=== PATIENT | male | born 1945 | race Caucasian/White ===

== ENCOUNTER 2022-01-14 12:31 | Inpatient (IN) ==
--- NOTE | 2022-01-14 13:10 | ED Triage Note ---
Date of Service January 14, 2022 History of Present Illness This patient was briefly evaluated while in triage. An abbreviated physical exam was performed. This patient is a 76-year-old Male with past medical history of UT x2 who presents to the ED for evaluation of "I had a seizure this morning, uncontroll able". Pt. states he heard a ringing in his ears around 11:30, then all of a sudden his arms started moving back and forth. Lasted 1-2 minutes. Legs shaking, couldn't stop. Wasn't able to talk, but recalls the entire episode. Physical Exam VITALS: Vitals are noted on the nurse's note and reviewed by myself. GENERAL: This is a 76 year old white male, in no acute distress, nondiaphoretic, well-developed well-nourished. SKIN: No rashes, edema, erythema HEAD: Normocephalic atraumatic. NECK: No JVD. LUNGS: No retractions or accessory muscle use. MUSCULOSKELETAL: Normal gait. NEURO: Patient was alert and oriented to person place and time. No focal neurological deficits. Initial orders for labs and / or imaging were placed and patient was placed in the waiting area until a bed is available. Please see further documentation for the full ED course.
--- NOTE | 2022-01-14 13:40 | CT Scan Report ---
CT head/brain wo con CLINICAL HISTORY: 76 years-old Male with Seizure-like symptoms "arms and legs shaking". Acute seizur e like symptoms TECHNIQUE: Multiple axial CT images of the head were obtained without contrast. A dose lowering tech nique was utilized adhering to the principles of ALARA. CT DOSE: 729.78 mGycm COMPARISON: None. FINDINGS: No acute intracranial hemorrhage, midline shift, intracranial mass, hydrocephalus, territorial ischem ia or abnormal extra-axial collection. Involutional changes. Extensive white matter hypodensities. Ce rebral vascular calcifications. Mildly motion degraded exam. The calvarium is intact. Prior bilateral lens repair. The paranasal sinuses, mastoid air cells, and m iddle ear cavities are clear. IMPRESSION: 1. No acute intracranial abnormality. 2. Extensive nonspecific white matter hypodensities suggestive of probable chronic microvascular isch emic disease. ACT 112: Negative or not required by law. The above report was generated using voice recognition software. It may contain grammatical, syntax o r spelling errors. Electronically signed by: Rajinder Cortez M.D. 01/14/2022 1:37 PM
[2022-01-14 14:15] LABS: Basophils # (auto) 0.04 K/uL (0-0.2); Basophils % (auto) 0.6 %; Eosinophils # (auto) 0.07 K/uL (0-0.50); Eosinophils % (auto) 1.1 %; Hematocrit (blood only) 45.5 % (40.1-51.0); Hemoglobin 14.8 g/dl (14.0-18.0); Immature Granulocytes # (auto) 0.01 K/uL (0.00-0.02); Immature Granulocytes % (auto) 0.2 %; Lymphocytes # (auto) 0.95 K/uL (1.2-3.4); Lymphocytes % (auto) 15.2 %; Mean Corpuscular Hemoglobin 31.4 pg (25.0-34.0); Mean Corpuscular Hgb Conc 32.5 g/dL (32.0-36.0); Mean Corpuscular Volume 96.4 fL (80.0-100.0); Mean Platelet Volume 10.5 fL (9.4-12.4); Monocytes # (auto) 0.74 K/uL (0.24-0.82); Monocytes % (auto) 11.8 %; Neutrophils # (auto) 4.46 K/uL (1.4-6.5); Neutrophils % (auto) 71.1 %; Platelet Count 193 K/uL (130-400); RDW Coefficient of Variation 12.9 % (11.5-14.5); RDW Standard Deviation 46.3 fL (36.4-46.3); Red Blood Count 4.72 M/uL (4.63-6.08); White Blood Count 6.27 K/ul (4.8-10.8)
[2022-01-14 14:40] LABS: Alanine Aminotransferase 14 U/L (7-52); Albumin Globulin Ratio 1.4 (0.9-2); Alkaline Phosphatase 59 U/L (34-104); Anion Gap 1 (3-11); Aspartate Aminotransferase 14 U/L (13-39); BUN Creatinine Ratio 14.7 (10-20); Bilirubin,Total 0.6 mg/dl (0.2-1.0); Blood Urea Nitrogen 14 mg/dl (6-23); Calcium 9.5 mg/dl (8.5-10.1); Carbon Dioxide 34 mmol/L (21-32); Chloride 105 mmol/L (98-107); Est GFR (African American) 90.4 ml/min; Globulin 2.8 gm/dl (2.5-4.0); Glucose 105 mg/dl (70-99(Fasting)); Magnesium 2.1 mg/dl (1.7-2.4); Potassium 4.4 mmol/L (3.5-5.1); Sodium 140 mmol/L (136-145); Total Protein 6.8 gm/dl (6.0-8.3)
--- NOTE | 2022-01-14 17:00 | XRay Report ---
XR chest 1V portable CLINICAL HISTORY: tia. Evaluate cardiopulmonary status COMPARISON STUDY: No previous studies for comparison. TECHNIQUE: 1 view of the chest FINDINGS: Single frontal view of the chest demonstrates the cardiomediastinal silhouette to be within normal li mits. There is hyperinflation of the lungs with attenuation of the pulmonary vasculature peripherally characteristic of underlying chronic obstructive pulmonary disease. The lungs are clear of alveolar opacities. There is no evidence for pleural effusion. There is no evidence for vascular congestion. T here is no acute osseous pathology. IMPRESSION: 1. No acute cardiopulmonary disease. 2. Underlying COPD. ACT 112: Negative or not required by law. Electronically signed by: Mumtaz Trinidad M.D. 01/14/2022 4:59 PM
--- NOTE | 2022-01-14 17:01 | Emergency Department Note ---
Impression & Plan TIA (transient ischemic attack), Seizure-like activity ED Provider Note NAME: NKECHI HARO AGE: 76 SEX: M : 1945 ARRIVES VIA: Walk-In INFORMANT: Patient, ED PROVIDER(S): Jordin Conde DO CHIEF COMPLAINT: Possible seizure HPI: The patient is a 76-year-old male who presented to the emergency department for an evaluation of a possible seizure-like activity. The patient states he had an episode where he could hear ringing in his ears and then he fell to the ground. He states he was awake during the entire episode and remembers the whole thing happening. He started shaking both his upper and lower extremities. He then thinks he may have had a seizure. He denies having any vomiting. He denies having a headache. The patient presented via ambulance. The patient states that after the episode he was not confused. He did not have a postictal phase. He did not bite his tongue. He has no loss of bowel or bladder continence. The patient states that this time he feels at his baseline. He denies having any chest pain difficulty breathing or lower extremity swelling. ROS: See above HPI for pertinent positives & negatives. A total of 10 systems reviewed and were otherwise negative. PAST MEDICAL HISTORY: See Below PAST SURGICAL HISTORY: See Below FAMILY HISTORY: See Below SOCIAL HISTORY: See Below HOME MEDICATIONS: See Below ALLERGIES: See Below VITALS: See Below PHYSICAL EXAMINATION: GENERAL: Patient is awake alert in no acute distress patient is resting comfortably and showing no signs of anxiety EYES: The conjunctivae are clear. The pupils are round and reactive. EARS, NOSE, MOUTH AND THROAT: The nose is without any evidence of any deformity. NECK: The neck is nontender and supple. RESPIRATORY: Normal respiratory effort is noted there is no evidence of wheezing rhonchi or rales CARDIOVASCULAR: Regular rate and rhythm noted there no murmurs rubs or gallops normal S1 normal S2. GASTROINTESTINAL: The abdomen is soft. Abdomen is nontender. MUSCULOSKELETAL/EXTREMITIES: There is no evidence of gross deformity full range of motion is noted in the hips and shoulders. SKIN: There is no obvious evidence of any rash. There are no petechiae, pallor or cyanosis noted. NEUROLOGIC: Patient is awake alert and oriented x3 strength is symmetric patellar reflexes are 2+ bilaterally MEDICAL DECISION MAKING: The patient is a 76-year-old male who presented to the emergency department for an evaluation of seizure-like activity. The patient describes an episode that occurred where he was shaking in both upper and lower extremities. The patient states he was awake during this time and had no loss of consciousness. There is no tongue biting or loss of bowel or bladder continence. The patient was awake and alert and had no focal neurologic deficits to my evaluation. He states he had an episode during that time where he could not speak or form sentences. This does not sound like a seizure given the patient's recollection of the event. He could possibly be neurologic in nature. I discussed the patient's condition with the on-call [facility] hospitalist. They have agreed to evaluate the patient in the emergency department for further management and disposition. Triage Nursing notes reviewed. Prior medical records reviewed Vital Signs: reviewed and remarkable for elevated blood pressure. Differential diagnosis: Vasovagal event, dehydration, infection, hypoglycemia, electrolyte abnormalities, cardiac sources, intracerebral event, pulmonary embolism, seizure, toxicologic, neurologic, as well as other pathologies. ER treatment provided: See below Diagnostics interpreted by me: ECG: EKG was obtained in the emergency department. My interpretation is normal sinus rhythm at 61 bpm. There is no ectopy. Anterior Q waves are noted. There was no PVCs. This was compared to a tracing from December 17, 2004. The anterior Q waves are new otherwise no changes were noted. Cardiac Monitoring: An order was placed for continuous cardiac monitoring. The monitor shows a rate of 72 bpm with sinus rhythm. Laboratory studies: As stated above and show below. Imaging studies: See below Consultation(s): Discussed this case with the [facility] group. Past Med/Surg History Medical History CAD (coronary artery disease) Chronic pain CKD (chronic kidney disease), stage II Diabetes mellitus, type II High cholesterol Hypertension Tobacco use Surgical History (Updated 01/14/22 @ 21:34 by Courtney López PA-C) H/O cervical spine surgery Family History (Updated 01/14/22 @ 21:35 by Courtney López PA-C) Other Aneurysm Cancer Social History (Updated 01/14/22 @ 21:35 by Courtney López PA-C) Smoking Status: Current every day smoker Tobacco Type: Cigarettes Cigarettes Per Day: 10; Hx Alcohol Use: No Hx Substance Use: No Preferred Language: Pakistani Feels Safe at Home: Yes Allergies Allergies Allergy/AdvReac Type Severity Reaction Status Date / Time No Known Allergies Allergy Verified 01/14/22 16:40 Home Meds Home Medications Medication Instructions Recorded Confirmed alendronate 70 mg tablet 70 mg PO WK 01/14/22 01/14/22 aspirin 81 mg tablet,delayed 81 mg PO DAILY 01/14/22 01/14/22 release atorvastatin 40 mg tablet 40 mg PO DAILY 01/14/22 01/14/22 carvedilol 6.25 mg tablet 6.25 mg PO BID 01/14/22 01/14/22 gabapentin 800 mg tablet 800 mg PO TID 01/14/22 01/14/22 lisinopril 10 mg tablet 10 mg PO DAILY 01/14/22 01/14/22 tramadol 50 mg tablet 50 mg PO Q6H PRN Pain 01/14/22 01/14/22 Results & Data (ED) Vital Signs Vital Signs - 24 hr 01/14/22 13:06 01/14/22 15:56 01/14/22 15:56 Temperature 36.4 C L Temperature Source Temporal Artery Scan Pulse Rate 71 Pulse Rate [Apical] 69 Pulse Rate from SpO2 Sensor Pulse Rhythm [Apical] Regular Respiratory Rate 16 16 Respiratory Effort / Characteristics Non-Labored Non-Labored Respiratory Depth Normal Normal Respiratory Pattern Regular Blood Pressure 164/78 H Blood Pressure [Left Arm] 155/106 H Blood Pressure Mean 106 Blood Pressure Mean [Left Arm] 122 Pulse Oximetry 93 95 95 Oxygen Delivery Method Room Air Room Air Sepsis Recent Fever Within 48 Hours No Sepsis New/Unexplained Change in Mental Status N/A Sepsis Action Taken by Nursing No Action Required 01/14/22 16:11 01/14/22 17:00 01/14/22 17:29 Temperature Temperature Source Pulse Rate 62 77 Pulse Rate [Apical] 78 Pulse Rate from SpO2 Sensor 63 Pulse Rhythm [Apical] Regular Respiratory Rate 19 16 18 Respiratory Effort / Characteristics Non-Labored Respiratory Depth Normal Respiratory Pattern Blood Pressure 155/106 H 179/93 H Blood Pressure [Left Arm] 179/93 H Blood Pressure Mean 122 121 Blood Pressure Mean [Left Arm] 121 Pulse Oximetry 96 96 96 Oxygen Delivery Method Room Air Room Air Sepsis Recent Fever Within 48 Hours Sepsis New/Unexplained Change in Mental Status Sepsis Action Taken by Nursing 01/14/22 19:29 Temperature Temperature Source Pulse Rate 72 Pulse Rate [Apical] Pulse Rate from SpO2 Sensor Pulse Rhythm [Apical] Respiratory Rate 17 Respiratory Effort / Characteristics Respiratory Depth Respiratory Pattern Blood Pressure 172/89 H Blood Pressure [Left Arm] Blood Pressure Mean 116 Blood Pressure Mean [Left Arm] Pulse Oximetry 96 Oxygen Delivery Method Room Air Sepsis Recent Fever Within 48 Hours Sepsis New/Unexplained Change in Mental Status Sepsis Action Taken by Custodial Medications Current Medication List: was personally reviewed by me Laboratory Data Attestation: I reviewed the patient's lab results. Result diagrams: 01/14/22 13:50 01/14/22 13:50 Lab Results 01/14/22 01/14/22 01/14/22 Range/Units 13:50 13:50 13:50 WBC 6.27 (4.8-10.8) K/ul RBC 4.72 (4.63-6.08) M/uL Hgb 14.8 (14.0-18.0) g/dl Hct 45.5 (40.1-51.0) % MCV 96.4 (80.0-100.0) fL MCH 31.4 (25.0-34.0) pg MCHC 32.5 (32.0-36.0) g/dL RDW Std Deviation 46.3 (36.4-46.3) fL RDW Coeff of Marika 12.9 (11.5-14.5) % Plt Count 193 (130-400) K/uL MPV 10.5 (9.4-12.4) fL Immature Gran % (Auto) 0.2 % Neut % (Auto) 71.1 % Lymph % (Auto) 15.2 % [place] % (Auto) 11.8 % Eos % (Auto) 1.1 % Baso % (Auto) 0.6 % Neut # (Auto) 4.46 (1.4-6.5) K/uL Lymph # (Auto) 0.95 L (1.2-3.4) K/uL [place] # (Auto) 0.74 (0.24-0.82) K/uL Eos # (Auto) 0.07 (0-0.50) K/uL Baso # (Auto) 0.04 (0-0.2) K/uL Immature Gran # (Auto) 0.01 (0.00-0.02) K/uL Sodium 140 (136-145) mmol/L Potassium 4.4 (3.5-5.1) mmol/L Chloride 105 (98-107) mmol/L Carbon Dioxide 34 H (21-32) mmol/L Anion Gap 1 L (3-11) BUN 14 (6-23) mg/dl Creatinine 0.95 (0.6-1.4) mg/dl Est Cr Clr Drug Dosing Not Reportable Est GFR ( Amer) 90.4 ml/min Est GFR (Non-Af Amer) 78.0 ml/min BUN/Creatinine Ratio 14.7 (10-20) Glucose 105 H (70-99(Fasting)) mg/dl Calcium 9.5 (8.5-10.1) mg/dl Magnesium 2.1 (1.7-2.4) mg/dl Total Bilirubin 0.6 (0.2-1.0) mg/dl AST 14 (13-39) U/L ALT 14 (7-52) U/L Alkaline Phosphatase 59 (34-104) U/L Troponin I High Sens 12.5 (0-20) pg/ml Total Protein 6.8 (6.0-8.3) gm/dl Albumin 4.0 (3.4-5.0) gm/dl Globulin 2.8 (2.5-4.0) gm/dl Albumin/Globulin Ratio 1.4 (0.9-2) SARS-CoV-2, RNA, NAAT (NEGATIVE) 01/14/22 Range/Units 20:13 WBC (4.8-10.8) K/ul RBC (4.63-6.08) M/uL Hgb (14.0-18.0) g/dl Hct (40.1-51.0) % MCV (80.0-100.0) fL MCH (25.0-34.0) pg MCHC (32.0-36.0) g/dL RDW Std Deviation (36.4-46.3) fL RDW Coeff of Marika (11.5-14.5) % Plt Count (130-400) K/uL MPV (9.4-12.4) fL Immature Gran % (Auto) % Neut % (Auto) % Lymph % (Auto) % [place] % (Auto) % Eos % (Auto) % Baso % (Auto) % Neut # (Auto) (1.4-6.5) K/uL Lymph # (Auto) (1.2-3.4) K/uL [place] # (Auto) (0.24-0.82) K/uL Eos # (Auto) (0-0.50) K/uL Baso # (Auto) (0-0.2) K/uL Immature Gran # (Auto) (0.00-0.02) K/uL Sodium (136-145) mmol/L Potassium (3.5-5.1) mmol/L Chloride (98-107) mmol/L Carbon Dioxide (21-32) mmol/L Anion Gap (3-11) BUN (6-23) mg/dl Creatinine (0.6-1.4) mg/dl Est Cr Clr Drug Dosing Est GFR ( Amer) ml/min Est GFR (Non-Af Amer) ml/min BUN/Creatinine Ratio (10-20) Glucose (70-99(Fasting)) mg/dl Calcium (8.5-10.1) mg/dl Magnesium (1.7-2.4) mg/dl Total Bilirubin (0.2-1.0) mg/dl AST (13-39) U/L ALT (7-52) U/L Alkaline Phosphatase (34-104) U/L Troponin I High Sens (0-20) pg/ml Total Protein (6.0-8.3) gm/dl Albumin (3.4-5.0) gm/dl Globulin (2.5-4.0) gm/dl Albumin/Globulin Ratio (0.9-2) SARS-CoV-2, RNA, NAAT NEGATIVE (NEGATIVE) Administered Medications Discontinued Medications Ioversol (Optiray 320 125ml) 118 ml IV ONCE ONE Stop: 01/14/22 17:11 Last Admin: 01/14/22 17:10 Dose: 118 ml Documented By: RUTHY Imaging Data Radiologist's Impression: Head CT 01/14/22 13:09 CT head/brain wo con CLINICAL HISTORY: 76 years-old Male with Seizure-like symptoms "arms and legs shaking". Acute seizure like symptoms TECHNIQUE: Multiple axial CT images of the head were obtained without contrast. A dose lowering technique was utilized adhering to the principles of ALARA. CT DOSE: 729.78 mGycm COMPARISON: None. FINDINGS: No acute intracranial hemorrhage, midline shift, intracranial mass, hydrocephalus, territorial ischemia or abnormal extra-axial collection. Invol utional changes. Extensive white matter hypodensities. Cerebral vascular calcifications. Mildly motion degraded exam. The calvarium is intact. Prior bilateral lens repair. The paranasal sinuses, mastoid air cells, and middle ear cavities are clear. IMPRESSION: 1. No acute intracranial abnormality. 2. Extensive nonspecific white matter hypodensities suggestive of probable chronic microvascular ischemic disease. ACT 112: Negative or not required by law. The above report was generated using voice recognition software. It may contain grammatical, syntax or spelling errors. Electronically signed by: Rajinder Cortez M.D. 01/14/2022 1:37 PM Chest X-Ray 01/14/22 16:35 XR chest 1V portable CLINICAL HISTORY: tia. Evaluate cardiopulmonary status COMPARISON STUDY: No previous studies for comparison. TECHNIQUE: 1 view of the chest FINDINGS: Single frontal view of the chest demonstrates the cardiomediastinal silhouette to be within normal limits. There is hyperinflation of the lungs with attenuation of the pulmonary vasculature peripherally characteristic of underlying chronic obstructive pulmonary disease. The lungs are clear of alveolar opacities. There is no evidence for pleural effusion. There is no evid ence for vascular congestion. There is no acute osseous pathology. IMPRESSION: 1. No acute cardiopulmonary disease. 2. Underlying COPD. ACT 112: Negative or not required by law. Electronically signed by: Mumtaz Trinidad M.D. 01/14/2022 4:59 PM Head CTA 01/14/22 16:35 CT angio head w con CLINICAL HISTORY: tia . Seizure-like symptoms COMPARISON STUDY: Noncontrast CT from 01/14/2022 CT DOSE: TECHNIQUE: CT Angio of the brain was performed.followed by image post processing with coronal, and sagittal MIP reformats. Contrast Volume: Optiray 320, 118 ml FINDINGS: Vascular findings: There is normal enhancement within the internal carotid arteries bilaterally. There is normal enhancement noted within the anterior, middle and posterior cerebral arteries. Nonvascular findings: There is homogeneous attenuation of the brain parenchyma bilaterally. There is no evidence for an acute infarct or cerebral edema. IMPRESSION: 1. Negative CT angiogram of the brain with contrast. ACT 112: Negative or not required by law. Electronically signed by: Mumtaz Trinidad M.D. 01/14/2022 5:24 PM Neck CTA 01/14/22 16:35 CT angio neck with con CLINICAL HISTORY: tia . Seizure-like activity COMPARISON STUDY: No previous studies for comparison. CT DOSE: 539.30 mGy.cm TECHNIQUE: CT Angio of the neck was performed.followed by image post processing with coronal, and sagittal MIP reformats.. Stenosis assessment by NASCET criteria. Contrast Volume: Optiray 320, 118 ml FINDINGS: Vascular findings: Right common carotid artery: Patent without significant stenosis. There is mild atherosclerotic calcification at the carotid bulb. Right internal carotid artery: Patent without significant stenosis. Right vertebral artery: Patent without significant stenosis. Left common carotid artery: Patent without significant stenosis. There is mild atherosclerotic calcification at the carotid bulb. Left internal carotid artery: Patent without significant stenosis. Left vertebral artery: Patent without significant stenosis. The left vertebral artery is dominant when compared to the right. Nonvascular findings: The parotid and submandibular salivary glands appear normal. There is no enl arged cervical adenopathy noted. The airway appears patent. The thyroid gland appears within normal limits. The lung apices appear within normal limits. Impression: 1. Essentially negative CT angiogram of the neck with contrast. ACT 112: Negative or not required by law. Electronically signed by: Mumtaz Trinidad M.D. 01/14/2022 5:28 PM Discharge Plan Visit Data Chief Complaint: Illness Stated Complaint: RINGING, SHAKING ED Provider: Jordin Conde Discharge Problem: TIA (transient ischemic attack), Seizure-like activity Patient Disposition: Being Evaluated by Hospitalist
[2022-01-14] MEDS ORDERED: OPTIRAY 320 125ml IV ONE (17:10)
--- NOTE | 2022-01-14 17:25 | CT Scan Report ---
CT angio head w con CLINICAL HISTORY: tia . Seizure-like symptoms COMPARISON STUDY: Noncontrast CT from 01/14/2022 CT DOSE: TECHNIQUE: CT Angio of the brain was performed.followed by image post processing with coronal, and s agittal MIP reformats. Contrast Volume: Optiray 320, 118 ml FINDINGS: Vascular findings: There is normal enhancement within the internal carotid arteries bilaterally. The re is normal enhancement noted within the anterior, middle and posterior cerebral arteries. Nonvascular findings: There is homogeneous attenuation of the brain parenchyma bilaterally. There is no evidence for an acute infarct or cerebral edema. IMPRESSION: 1. Negative CT angiogram of the brain with contrast. ACT 112: Negative or not required by law. Electronically signed by: Mumtaz Trinidad M.D. 01/14/2022 5:24 PM
--- NOTE | 2022-01-14 17:29 | CT Scan Report ---
CT angio neck with con CLINICAL HISTORY: tia . Seizure-like activity COMPARISON STUDY: No previous studies for comparison. CT DOSE: 539.30 mGy.cm TECHNIQUE: CT Angio of the neck was performed.followed by image post processing with coronal, and sa gittal MIP reformats.. Stenosis assessment by NASCET criteria. Contrast Volume: Optiray 320, 118 ml FINDINGS: Vascular findings: Right common carotid artery: Patent without significant stenosis. There is mild atherosclerotic calci fication at the carotid bulb. Right internal carotid artery: Patent without significant stenosis. Right vertebral artery: Patent without significant stenosis. Left common carotid artery: Patent without significant stenosis. There is mild atherosclerotic calcif ication at the carotid bulb. Left internal carotid artery: Patent without significant stenosis. Left vertebral artery: Patent without significant stenosis. The left vertebral artery is dominant whe n compared to the right. Nonvascular findings: The parotid and submandibular salivary glands appear normal. There is no enlarged cervical adenopathy noted. The airway appears patent. The thyroid gland appears within normal limits. The lung apices ap pear within normal limits. Impression: 1. Essentially negative CT angiogram of the neck with contrast. ACT 112: Negative or not required by law. Electronically signed by: Mumtaz Trinidad M.D. 01/14/2022 5:28 PM
--- NOTE | 2022-01-14 21:03 | History & Physical Report ---
Date of Service January 14, 2022 Assessment & Plan (1) Seizure-like activity: Plan: Patient is 76 y/o M with PMH CAD, HTN, CKD II, tobacco use presented to ER with complaint of seizure-like activity today around 11AM. Around 11 AM today had sudden onset of ringing in his ears followed by uncontrolled movement of his arms and his legs. Was awake but unable to talk. No loss control bowel/bladder In ER vitals stable. No significant electrolyte abnormality CT head: No acute intracranial abnormality CTA head and neck: Essentially negative CT angiogram of the head and neck. DDX: seizure, TIA, stroke -Tele to monitor for arrhythmias -tox screen pending -lipids and A1c in am -MRI brain -Seizure precautions -EEG -PT/OT consult -continue aspirin -neurology consult -will hold tramadol (2) Bronchitis: Plan: Suspect Underlying COPD and COPD exacerbation -Duonebs, Doxycycline, prednisone 40mg daily -Start Advair (3) CAD (coronary artery disease): Plan: H/O LA Denies CP, SOB -Continue aspirin, atorvastatin (4) Diabetes mellitus, type II: Plan: A1c: 6.3 in 11/2020 Diet controlled -Novolog correction sliding scale and monitor (5) Hypertension: Plan: -Continue lisinopril (6) CKD (chronic kidney disease), stage II: Plan: Cr: 0.9. Baseline 1.1 -monitor renal functions, avoid nephrotoxic agents when possible (7) Chronic pain: Plan: History injury and chronic back pain -Hold tramadol with possible seizure like activity -Start hydrocodone prn (8) Tobacco use: Plan: -Smoking cessation encouraged -Nicotine patch DVT Prophylaxis -Lovenox SQ Full Code as per discussion with pt Follows with Dr Maxwell for routine care Pt was seen and care coordinated with Dr Barahona. See addendum History of Present Illness Chief Complaint: Seizure like activity Primary Care Provider: Darius Maxwell MD Patient is 76 y/o M with PMH CAD, HTN, CKD II, tobacco use presented to ER with complaint of seizure-like activity today. Patient states around 11 AM today had sudden onset of ringing in his ears followed by uncontrolled movement of his arms and his legs. Patient states he was aware of what was going on however he was unable to speak during the event. His granddaughters were with him on this happened and said the episode lasted approximately 1 to 2 minutes and self resolved. Granddaughter was able to keep patient in chair to avoid from falling and hitting head. Denies any recent head trauma. Denies any loss of control of bowels or bladder. After event he was able to walk around without difficulty. Denies history seizure disorder. Denies any new medications or OTC supplements. Takes Tramadol twice daily for chronic back pain from prior injury. Ate pancakes for breakfast. Smokes 1/2ppd and reports chronic cough however recent productive cough. Denies SOB. Denies fever/chills, diaphoresis, N/V/D/C, GUTIERREZ, dizziness, syncope, vision changes, neck pain, CP, SOB, orthopnea, palpitations, cough, sore throat, choking, otalgia, rhinorrhea, abdominal pain, paresthesias, weakness, extremity weakness, extremity edema, rashes, urinary symptoms. Allergies Allergy/AdvReac Type Severity Reaction Status Date / Time No Known Allergies Allergy Verified 01/14/22 16:40 Home Medications Medication Instructions Recorded Confirmed Type alendronate 70 mg tablet 70 mg PO WK 01/14/22 01/14/22 History aspirin 81 mg tablet,delayed 81 mg PO DAILY 01/14/22 01/14/22 History release atorvastatin 40 mg tablet 40 mg PO DAILY 01/14/22 01/14/22 History carvedilol 6.25 mg tablet 6.25 mg PO BID 01/14/22 01/14/22 History gabapentin 800 mg tablet 800 mg PO TID 01/14/22 01/14/22 History lisinopril 10 mg tablet 10 mg PO DAILY 01/14/22 01/14/22 History tramadol 50 mg tablet 50 mg PO Q6H PRN Pain 01/14/22 01/14/22 History Past Med/Surg History Medical History CAD (coronary artery disease) Chronic pain CKD (chronic kidney disease), stage II Diabetes mellitus, type II High cholesterol Hypertension Tobacco use Surgical History H/O cervical spine surgery Family History Other Aneurysm Cancer Social History Smoking Status: Current every day smoker Tobacco Type: Cigarettes Cigarettes Per Day: 10; Do You Dip or Chew Tobacco: No; Hx Alcohol Use: Yes Hx Substance Use: No Preferred Language: Iraqi Communication Ability: Effective Sign Board Erector Required: No Beliefs That Will Affect Care: None Current Living Situation: Family Current Living Situation Comment: lives with his granddaughter Other Information That Helps Us Care for You: No Feels Safe at Home: Yes Safety Concerns: Feels Safe At This Time Assistive Devices: Glasses Assistive Devices Comment: pt is hard of hearing Review of Systems Review of Systems: All systems reviewed & are unremarkable except as noted in HPI & below Physical Exam Physical Exam: General: no distress, WDWN Head: normocephalic, atraumatic Eyes: PERRL, EOM's intact, conjunctiva non-injected, anicteric ENT: normal inspection external ears, nose, mucous membranes moist Neck: supple, trachea midline Lungs: no respiratory distress, +diffuse wheezing, no rhonchi/rales CV: RRR, no murmur, no pretibial edema Abd: normal BS, soft, non-tender Ext: no cyanosis, no calf tenderness Neuro: A&O x 3, no focal deficits noted, normal affect Skin: warm, dry Results & Data Results & Data ([facility]) Vital Signs (Past 12 Hours) Vital Signs Temp Pulse Pulse Resp BP BP Pulse Ox 01/14/22 19:29 72 17 172/89 H 96 01/14/22 17:29 77 18 179/93 H 96 01/14/22 17:00 78 16 179/93 H 96 01/14/22 16:11 62 19 155/106 H 96 01/14/22 15:56 95 01/14/22 15:56 69 16 155/106 H 95 01/14/22 13:06 36.4 C L 71 16 164/78 H 93 O2 Del Method 01/14/22 19:29 Room Air 01/14/22 17:29 Room Air 01/14/22 17:00 Room Air 01/14/22 16:11 01/14/22 15:56 01/14/22 15:56 Room Air 01/14/22 13:06 Room Air Laboratory Results Short CBC 01/14/22 Range/Units 13:50 WBC 6.27 (4.8-10.8) K/ul Hgb 14.8 (14.0-18.0) g/dl Hct 45.5 (40.1-51.0) % Plt Count 193 (130-400) K/uL BMP 01/14/22 13:50 Sodium 140 Potassium 4.4 Chloride 105 Carbon Dioxide 34 H BUN 14 Creatinine 0.95 Glucose 105 H Calcium 9.5 Liver Function 01/14/22 Range/Units 13:50 Total Bilirubin 0.6 (0.2-1.0) mg/dl AST 14 (13-39) U/L ALT 14 (7-52) U/L Alkaline Phosphatase 59 (34-104) U/L Albumin 4.0 (3.4-5.0) gm/dl Diagnostic Findings Head CT 01/14/22 13:09 CT head/brain wo con CLINICAL HISTORY: 76 years-old Male with Seizure-like symptoms "arms and legs shaking". Acute seizure like symptoms TECHNIQUE: Multiple axial CT images of the head were obtained without contrast. A dose lowering technique was utilized adhering to the principles of ALARA. CT DOSE: 729.78 mGycm COMPARISON: None. FINDINGS: No acute intracranial hemorrhage, midline shift, intracranial mass, hydrocephalus, territorial ischemia or abnormal extra-axial collection. Involutional changes. Extensive white matter hypodensities. Cerebral vascular calcifications. Mildly motion degraded exam. The calvarium is intact. Prior bilateral lens repair. The paranasal sinuses, mastoid air cells, and middle ear cavities are clear. IMPRESSION: 1. No acute intracranial abnormality. 2. Extensive nonspecific white matter hypodensities suggestive of probable chronic microvascular ischemic disease. ACT 112: Negative or not required by law. The above report was generated using voice recognition software. It may contain grammatical, syntax or spelling errors. Electronically signed by: Rajinder Cortez M.D. 01/14/2022 1:37 PM Chest X-Ray 01/14/22 16:35 XR chest 1V portable CLINICAL HISTORY: tia. Evaluate cardiopulmonary status COMPARISON STUDY: No previous studies for comparison. TECHNIQUE: 1 view of the chest FINDINGS: Single frontal view of the chest demonstrates the cardiomediastinal silhouette to be within normal limits. There is hyperinflation of the lungs with attenuation of the pulmonary vasculature peripherally characteristic of underlying chronic obstructive pulmonary disease. The lungs are clear of alveolar opacities. There is no evidence for pleural effusion. There is no evidence for vascular congestion. There is no acute osseous pathology. IMPRESSION: 1. No acute cardiopulmonary disease. 2. Underlying COPD. ACT 112: Negative or not required by law. Electronically signed by: Mumtaz Trinidad M.D. 01/14/2022 4:59 PM Head CTA 01/14/22 16:35 CT angio head w con CLINICAL HISTORY: tia . Seizure-like symptoms COMPARISON STUDY: Noncontrast CT from 01/14/2022 CT DOSE: TECHNIQUE: CT Angio of the brain was performed.followed by image post processing with coronal, and sagittal MIP reformats. Contrast Volume: Optiray 320, 118 ml FINDINGS: Vascular findings: There is normal enhancement within the internal carotid arteries bilaterally. There is normal enhancement noted within the anterior, middle and posterior cerebral arteries. Nonvascular findings: There is homogeneous attenuation of the brain parenchyma bilaterally. There is no evidence for an acute infarct or cerebral edema. IMPRESSION: 1. Negative CT angiogram of the brain with contrast. ACT 112: Negative or not required by law. Electronically signed by: Mumtaz Trinidad M.D. 01/14/2022 5:24 PM Neck CTA 01/14/22 16:35 CT angio neck with con CLINICAL HISTORY: tia . Seizure-like activity COMPARISON STUDY: No previous studies for comparison. CT DOSE: 539.30 mGy.cm TECHNIQUE: CT Angio of the neck was performed.followed by image post processing with coronal, and sagittal MIP reformats.. Stenosis assessment by NASCET criteria. Contrast Volume: Optiray 320, 118 ml FINDINGS: Vascular findings: Right common carotid artery: Patent without significant stenosis. There is mild atherosclerotic calcification at the carotid bulb. Right internal carotid artery: Patent without significant stenosis. Right vertebral artery: Patent without significant stenosis. Left common carotid artery: Patent without significant stenosis. There is mild atherosclerotic calcification at the carotid bulb. Left internal carotid artery: Patent without significant stenosis. Left vertebral artery: Patent without significant stenosis. The left vertebral artery is dominant when compared to the right. Nonvascular findings: The parotid and submandibular salivary glands appear normal. There is no enlarged cervical adenopathy noted. The airway appears patent. The thyroid gland appears within normal limits. The lung apices appear within normal limits. Impression: 1. Essentially negative CT angiogram of the neck with contrast. ACT 112: Negative or not required by law. Electronically signed by: Mumtaz Trinidad M.D. 01/14/2022 5:28 PM Supervising Physician Co-Signing Physician Notes delayed entry date of service noted above Attending Addendum: care coordinated with GREG Montero please refer to her notes for full details, I agree with her notes patient seen and examined, records reviewed by myself as well on exam, patient seen resting in bed, sitting up, comfortable, very pleasant states he feels fine now overall no recurrence of involuntary jerky arm and leg movements no confusion, focal weakness or numbness no chest pain, dyspnea, palpitations, dizziness no other symptoms VS noted and reviewed oriented x 3 , not in distress, speaks in sentences with no effort nor accessory muscle use normal rate, regular rhythm, no murmurs (+) diffuse wheezing bilaterally, good air entry non distended, soft, nontender no bipedal edema, erythema, warmth no focal neuro deficits CT head: 1. No acute intracranial abnormality. 2. Extensive nonspecific white matter hypodensities suggestive of probable chronic microvascular ischemic disease. CXR: 1. No acute cardiopulmonary disease. 2. Underlying COPD. ASSESSMENT AND PLAN> INVOLUNTARY JERKY MOVEMENTS POSSIBLE NEW ONSET SEIZURE EPISODE R/O ACUTE CVA, TIA - Brain MRI EEG - Neuro consult - will hold off on antiepileptic agent as this is a first episode - reports drinking 1-2 beer/week, last drink 1-2 days ago - hold Tramadol as this can lower seizure threshold- used for chronic back pain for years, discuss with Neuro regarding continuation patient will need an alternative to Tramadol MILD COPD EXACERBATION - current smoker not on any inhaler - has chronic cough, mildly increased, non productive - no fever - CXR: no pneumonia - Nebs q6h, Prednisone, Doxycycline Advair 2 step exercise test other diagnoses and plan of care as per GREG Montero notes Earle Barahona MD
[2022-01-14] MEDS ORDERED: ENOXAPARIN INJ 40 MG/0.4 ML SYR SQ SCH (22:00)
[2022-01-14] MEDS ORDERED: ACETAMINOPHEN 325 MG TAB PO PRN (22:10)
[2022-01-14] MEDS ORDERED: HYDROCODONE/ACETAMOPHEN 5/325MG TAB PO PRN (22:10)
[2022-01-14] MEDS ORDERED: DEXTROSE 50% 50 ML SYRINGE IV PRN (22:10)
[2022-01-14] MEDS ORDERED: FLUTICASONE/SALMETEROL 100/50 (ADVAIR) 14 PUFF/1 INHALER INH SCH (22:10)
[2022-01-14] MEDS ORDERED: GLUCOSE 10 TAB/TUBE PO PRN (22:10)
[2022-01-14] MEDS ORDERED: POLYETHYLENE (MIRALAX) 17 GM PACK PO PRN (22:10)
[2022-01-14] MEDS ORDERED: GLUCOSE 40% GEL 15 GM TUBE PO PRN (22:10)
[2022-01-14] MEDS ORDERED: GLUCAGON FOR INJ 1 MG VIAL SQ PRN (22:10)
[2022-01-14] MEDS ORDERED: CARBOHYDRATES FOR HYPOGLYCEMIA PO PRN (22:10)
[2022-01-14] MEDS ORDERED: PHARMACIST DISCHARGE MED REC CONSULT PRN (22:10)
[2022-01-14] MEDS ORDERED: ALBUT/IPRATROP 3MG/0.5MG NEB 3 ML VIAL NEB PRN (22:41)
[2022-01-14] MEDS ORDERED: Patient's HEIGHT &/or WEIGHT Needed SCH (22:45)
[2022-01-14] MEDS: predniSONE 20 MG TAB PO SCH (23:46)
[2022-01-14] MEDS: carvediloL 6.25 MG TAB PO SCH (23:46)
[2022-01-14] MEDS: DOXYCYCLINE HYCLATE 100 MG CAP PO SCH (23:47)
[2022-01-14] MEDS: GABAPENTIN 800 MG TAB PO SCH (23:47)
[2022-01-14] MEDS: NICOTINE 21 MG/24 HR TDSY TD SCH (23:47)
[2022-01-14] MEDS: FLUTICASONE/VILANTEROL 100/25MCG 14 PUFFS/INHALER INH SCH (23:48)
[2022-01-14] MEDS: ENOXAPARIN INJ 30 MG/0.3 ML SYR SQ SCH (23:53)
[2022-01-15] MEDS: ALBUT/IPRATROP 3MG/0.5MG NEB 3 ML VIAL NEB SCH ×4 (07:25→19:35)
[2022-01-15] MEDS: NICOTINE 21 MG/24 HR TDSY TD SCH (08:14)
[2022-01-15] MEDS: FLUTICASONE/VILANTEROL 100/25MCG 14 PUFFS/INHALER INH SCH (08:16)
[2022-01-15] MEDS: GABAPENTIN 800 MG TAB PO SCH ×3 (08:17→19:54)
[2022-01-15] MEDS: DOXYCYCLINE HYCLATE 100 MG CAP PO SCH ×2 (08:17→19:54)
[2022-01-15] MEDS: lisinopril 10 MG TAB PO SCH (08:17)
[2022-01-15] MEDS: predniSONE 20 MG TAB PO SCH (08:17)
[2022-01-15] MEDS: carvediloL 6.25 MG TAB PO SCH ×2 (08:17→19:54)
[2022-01-15] MEDS: ASPIRIN 81 MG ECTAB PO SCH (08:17)
[2022-01-15] MEDS: ATORVASTATIN 40 MG TAB PO SCH (08:18)
[2022-01-15 08:19] LABS: Appearance Urine Clear (Clear); Bacteria Urine Automated Negative (Negative); Bilirubin Urine Negative (Negative); Blood Urine 2+ (Negative); Color Urine Yellow; Glucose Urine UA Negative (Negative); Ketones Urine 1+ (Negative); Leukocyte Esterase Urine Trace (Negative); Nitrite Urine Negative (Negative); Protein Urine Negative (Negative); RBC Urine Automated >30 /hpf (0-4); Specific Gravity Urine 1.034 (1.000-1.030); Urobilinogen Urine Negative (Negative)
[2022-01-15] MEDS: INSULIN ASPART PER UNIT SC SCH ×4 (08:21→21:45)
[2022-01-15 08:37] LABS: Amphetamines+Metham, Urine Neg (Neg); Barbiturates, Urine Neg (Neg); Benzodiazepine, Urine Neg (Neg); Cocaine, Urine Neg (Neg); MDMA (Ecstacy), Urine Neg (Neg); Methadone, Urine Neg (Neg); Opiate, Urine Neg (Neg); Phencyclidine, Urine Neg (Neg)
--- NOTE | 2022-01-15 08:57 | Magnetic Resonance Report ---
MRI OF THE BRAIN WITHOUT CONTRAST CLINICAL HISTORY: seizure like activity COMPARISON STUDY: Head CT and CTA of the head January 14, 2022. TECHNIQUE: Utilizing a 1.5 Carla magnet and dedicated coil, multiplanar, multiecho imaging of the bra in was performed without IV contrast. FINDINGS: There are no foci of restricted diffusion to suggest acute infarct. No acute intracranial h emorrhage, midline shift or mass effect is present. Basal cisterns are patent. There are no extra axi al collections. Flow-voids for the major intracranial vessels are present. No intracranial masses are identified on this unenhanced exam. Extensive white matter T2 hyperintense foci are present. No evid ence for sinusitis. There is no mastoid fluid. Calvarial signal is within normal limits. IMPRESSION: 1. No acute intracranial findings. 2. Extensive white matter T2 hyperintense foci. Although nonspecific, these statistically reflect sma ll vessel disease. ACT 112: Negative or not required by law. Electronically signed by: Jonathon Pardo M.D. 01/15/2022 8:55 AM
[2022-01-15 09:39] LABS: Hemoglobin 14.9 g/dl (14.0-18.0); Mean Corpuscular Hemoglobin 31.2 pg (25.0-34.0); Mean Corpuscular Hgb Conc 33.1 g/dL (32.0-36.0); Mean Corpuscular Volume 94.1 fL (80.0-100.0); Mean Platelet Volume 10.8 fL (9.4-12.4); Platelet Count 200 K/uL (130-400); RDW Coefficient of Variation 13.1 % (11.5-14.5); RDW Standard Deviation 45.1 fL (36.4-46.3); Red Blood Count 4.78 M/uL (4.63-6.08); White Blood Count 5.15 K/ul (4.8-10.8)
--- NOTE | 2022-01-15 09:45 | Neurology Consultation ---
Date of Consultation January 15, 2022 Assessment & Plan (1) Seizure-like activity: (2) TIA (transient ischemic attack): (3) Cerebrovascular disease: Plan 76-year-old male presenting with an episode of tinnitus and associated shaking of the arms and legs while remaining in an upright seated position at the kitchen table, with associated inability to speak, but without associated alteration in awareness. I agree that the episode would be atypical for seizure. He may have had a so-called "shaking TIA" related to vertebrobasilar ischemia. Fortunately, no evidence of acute or subacute infarct on MRI although he does have rather extensive, confluent, small vessel ischemic disease throughout the cerebral hemispheres and melo. No evidence of a basilar thrombosis on CT angiography, the left vertebral artery is dominant, but again, no obvious occlusive lesion identified. The above episode could have been triggered by bradycardia or hypotension. Would recommend mobile cardiac outpatient telemetry with potential for cardiology evaluation and possible loop recorder placement. Agree with EEG although again, the episode would be very atypical for seizure given bilateral limb shaking but without loss of awareness or loss of consciousness. Would check a transthoracic echocardiogram with bubble study. There is no indication that the episode was triggered by misuse of tramadol, gabapentin, alcohol withdrawal, anxiety or other emotional factors. Would recommend dual antiplatelet therapy, aspirin 81 mg/day and clopidogrel 75 mg/day for 3 weeks, followed by clopidogrel 75 mg/day monotherapy. Follow-up with results of lipid panel, goal LDL less than 70, may need to adjust his atorvastatin. Patient should continue with antihypertensives, and gabapentin. Tramadol may be held for the time being although if his EEG is unremarkable, would be able to restart this medication. Would not recommend starting an anticonvulsant medication at this point in time. May follow-up with myself or an TOI in neurology clinic in 3 to 4 weeks. History of Present Illness Reason for Consultation: seizure like episode Attending Physician: Willem Tee MD History of Present Illness The patient is a 76-year-old male who presented to the emergency department yesterday afternoon, for further assessment of a seizure-like episode that occurred earlier that morning, while sitting at the kitchen table eating breakfast. He indicates that he was watching his grandchildren at that time when he suddenly experienced ringing in his ears. The ringing intensified and was not associated with aural fullness, pain, or hearing loss. He recalls being unable to speak at that time. There was no loss of awareness or loss of consciousness. He then began to violently shake his arms and legs while sitting upright. He indicates that he knocked many things off of the table at that time due to the violent motion of his limbs. He did not sustain any injuries or collapsed to the ground. He remained upright in his chair for the duration of the event. He does not recall feeling lightheaded, dizzy, or sweating during this episode. He does not recall having any associated chest pressure, palpitations, or shortness of breath. The episode persisted for a minute or so and resolved without obvious sequelae or recurrence. He denies that he has ever had a similar episode in the past. He denies experiencing any significant associated emotional distressed prior to the episode, no associated anxiety. He does not have a known history of epilepsy or seizure disorder. He takes gabapentin and tramadol for chronic pain related to a work-related injury that occurred 15 years ago. He remarks that he has been using these medications consistently, as prescribed, he takes tramadol 50 mg in the morning and evening only. He takes his gabapentin as prescribed 3 times per day. He denies alcohol consumption. He currently feels fine, at his baseline, no specific neurologic complaint at this time. Allergies Allergy/AdvReac Type Severity Reaction Status Date / Time No Known Allergies Allergy Verified 01/14/22 16:40 Home Medications Medication Instructions Recorded Confirmed Type alendronate 70 mg tablet 70 mg PO WK 01/14/22 01/14/22 History aspirin 81 mg tablet,delayed 81 mg PO DAILY 01/14/22 01/14/22 History release atorvastatin 40 mg tablet 40 mg PO DAILY 01/14/22 01/14/22 History carvedilol 6.25 mg tablet 6.25 mg PO BID 01/14/22 01/14/22 History gabapentin 800 mg tablet 800 mg PO TID 01/14/22 01/14/22 History lisinopril 10 mg tablet 10 mg PO DAILY 01/14/22 01/14/22 History tramadol 50 mg tablet 50 mg PO Q6H PRN Pain 01/14/22 01/14/22 History Patient History Medical History CAD (coronary artery disease) Chronic pain CKD (chronic kidney disease), stage II Diabetes mellitus, type II High cholesterol Hypertension Tobacco use Surgical History H/O cervical spine surgery Family History Other Aneurysm Cancer Social History Smoking Status: Current every day smoker Tobacco Type: Cigarettes Cigarettes Per Day: 10; Do You Dip or Chew Tobacco: No; Hx Alcohol Use: Yes Hx Substance Use: No Preferred Language: Cuban Communication Ability: Effective Heel Boom Operator Required: No Beliefs That Will Affect Care: None Current Living Situation: Family Current Living Situation Comment: lives with his granddaughter Other Information That Helps Us Care for You: No Feels Safe at Home: Yes Safety Concerns: Feels Safe At This Time Assistive Devices: Glasses Assistive Devices Comment: pt is hard of hearing Review of Systems Constitutional: no fever and no chills Eyes: no blind spots and no diplopia Ear, Nose, Mouth, Throat: as per Subjective / HPI and + tinnitus; no ear pain and no hearing loss Respiratory: no cough and no dyspnea Cardiovascular: no chest pain and no palpitations Gastrointestinal: no nausea and no vomiting Genitourinary: no dysuria or no urinary incontinence Musculoskeletal: no myalgia Integumentary: no rash Neurologic: as per Subjective / HPI and + seizure-like activity; no gait abnormality, no localized weakness, no loss of sensation, no paresthesia, no headache(s) and no memory loss Psychiatric: no depression and no anxiety Hematologic / Lymphatic: no easy bleeding and no easy bruising Exam (Neuro) Constitutional: well developed and well nourished; no acute distress Eyes: normal visual shi by confrontation, PERRL, normal accommodation and EOM intact bilaterally; no fundoscopic abnormality, no nystagmus and no papilledema Cardiovascular: Vessels: normal carotid upstroke; no carotid bruit Neurologic: Oriented to:: Person, Place and Time Memory: Short Term Intact and Remote Intact Attention: Span Intact and Concentration Intact Language: Naming Objects and Repeating Phrases Speech Fluency: negative Dysarthria Speech Aphasia: negative Aphasia Fund of Knowledge: Current Events, Past History and Vocabulary Cranial Nerves: Normal II (Visual shi full to confrontation, visual acuity normal), III, IV, (Pupils equal round reactive to light and accommodation, eye movements normal), V (Facial sensation intact), VII (There is no facial droop or weakness), VIII (Hearing intact), IX, X (Palate elevates to midline), XI (Shoulder shrug intact) and XII (Tongue protrudes to midline) Motor Strength: Normal Lower Extremities and Normal Upper Extremities; negative Pronator Drift Motor Tone: Normal Lower Extremities and Normal Upper Extremities Muscle Bulk/Involuntary Movements: No Involuntary Movements; negative Muscle Atrophy Sensation: Light Touch Intact, Pain/Temperature Intact, Vibration Intact and Proprioception Intact Coordination: Normal; negative Limited Balance, Dysdiadochokinesia, Finger-Nose Abnormal or Heel-Rowell Abnormal Deep Tendon Reflexes: Rt Triceps: 2+, Lt Triceps: 2+, Rt Biceps: 2+, Lt Biceps: 2+, Rt Brachioradialis: 2+, Lt Brachioradialis: 2+, Rt Patellar: 2+, Lt Patellar: 2+, Rt Ankle: 2+ and Lt Ankle: 2+ Special Tests: negative Babinski Present Gait: Normal Station and Gait Results & Data ([facility]) Vital Signs (Past 12 Hours) Vital Signs Temp Pulse Pulse Resp BP BP Pulse Ox 01/15/22 08:23 89 01/15/22 08:23 36.8 C 90 18 113/79 92 01/15/22 07:27 75 14 90 01/15/22 06:00 75 19 132/85 89 L 01/15/22 05:00 72 15 135/74 92 01/15/22 04:00 70 19 137/82 94 01/15/22 03:00 65 17 151/78 H 92 01/15/22 02:00 65 13 151/78 H 93 01/15/22 01:00 77 15 122/71 91 01/15/22 00:00 67 15 164/79 H 92 01/14/22 23:09 72 15 165/103 H 91 O2 Del Method 01/15/22 08:23 01/15/22 08:23 Room Air 01/15/22 07:27 01/15/22 06:00 Room Air 01/15/22 05:00 Room Air 01/15/22 04:00 Room Air 01/15/22 03:00 Room Air 01/15/22 02:00 Room Air 01/15/22 01:00 Room Air 01/15/22 00:00 Room Air 01/14/22 23:09 Room Air Laboratory Results WBC 6.27, hemoglobin 14.8, hematocrit 45.5, MCV 96.4, platelet count 193, sodium 140, potassium 4.4, BUN 14, creatinine 0.95, glucose 105, calcium 9.5, magnesium 2.1, AST 14, ALT 14, urine drug screen negative Diagnostic Findings CT of the head negative for hemorrhage or acute process, there is extensive probable chronic small vessel ischemic disease. CT angiography of the head and neck unremarkable. Left vertebral artery dominant compared to the right, no basilar stenosis or occlusive lesion identified. No significant carotid lesion identified. Brain MRI negative for acute or subacute stroke. Again noted is extensive chronic small vessel ischemic disease. I independently reviewed the images and agree with these findings as indicated by the interpreting radiologist. Thin sections of the temporal lobes were also obtained, no evidence of mesial temporal sclerosis. I do appreciate rather extensive, confluent, cerebrovascular disease throughout the cerebral hemispheres and melo. Electrocardiogram reveals a normal sinus rhythm, 61 bpm. Coding Level of Care Code 07402 Initial In Care Lvl 3 Diagnoses Seizure-like activity R56.9 TIA (transient ischemic attack) G45.9 Cerebrovascular disease I67.9
[2022-01-15 10:02] LABS: BUN Creatinine Ratio 17.2 (10-20); Calcium 9.1 mg/dl (8.5-10.1); Chol HDL Ratio 2.4 (0-5); Creatinine Clr Calc Pharmacy 66.4 ml/min; Est GFR (African American) 97.8 ml/min; Est GFR (Non-African American) 84.4 ml/min; Potassium 4.1 mmol/L (3.5-5.1)
[2022-01-15 10:34] LABS: Estimated Average Glucose 146 mg/dl; Hemoglobin A1C 6.7 % (4.5-5.6)
--- NOTE | 2022-01-15 11:59 | Electroencephalogram ---
EEG Procedure Note Date of Service January 15, 2022 Start / End Times Start Time: 11:17 AM End Time: 11:37 AM Referring Physician Eva López History Seizure-like episode Home Medication List Medication Instructions Recorded Confirmed Type alendronate 70 mg tablet 70 mg PO WK 01/14/22 01/14/22 History aspirin 81 mg tablet,delayed 81 mg PO DAILY 01/14/22 01/14/22 History release atorvastatin 40 mg tablet 40 mg PO DAILY 01/14/22 01/14/22 History carvedilol 6.25 mg tablet 6.25 mg PO BID 01/14/22 01/14/22 History gabapentin 800 mg tablet 800 mg PO TID 01/14/22 01/14/22 History lisinopril 10 mg tablet 10 mg PO DAILY 01/14/22 01/14/22 History tramadol 50 mg tablet 50 mg PO Q6H PRN Pain 01/14/22 01/14/22 History Inpatient Medication List Albuterol (Albut/Ipratrop 3mg/0.5mg Neb 3 Ml Vial) 3 ml NEB QIDR [facility]; Protocol Stop: 02/14/22 06:59 Last Admin: 01/15/22 11:11 Dose: Not Given Documented By: Admin: 01/15/22 07:25 Dose: 3 ml Documented By: LUANNE Aspirin (Aspirin 81 Mg Ectab) 81 mg PO DAILY [facility] Stop: 02/14/22 08:59 Last Admin: 01/15/22 08:17 Dose: 81 mg Documented By: LIZ Atorvastatin Calcium (Atorvastatin 40 Mg Tab) 40 mg PO DAILY [facility] Stop: 02/14/22 08:59 Last Admin: 01/15/22 08:18 Dose: 40 mg Documented By: LIZ Carvedilol (Carvedilol 6.25 Mg Tab) 6.25 mg PO BID [facility] Stop: 02/13/22 22:09 Last Admin: 01/15/22 08:17 Dose: 6.25 mg Documented By: Admin: 01/14/22 23:46 Dose: 6.25 mg Documented By: BLAISE Doxycycline Hyclate (Doxycycline Hyclate 100 Mg Cap) 100 mg PO BID [facility] Stop: 01/21/22 22:09 Last Admin: 01/15/22 08:17 Dose: 100 mg Documented By: Admin: 01/14/22 23:47 Dose: 100 mg Documented By: BLAISE Enoxaparin Sodium (Enoxaparin Inj 30 Mg/0.3 Ml Syr) 30 mg SQ Q24H [facility] Stop: 02/13/22 21:59 Last Admin: 01/14/22 23:53 Dose: 30 mg Documented By: BLAISE Fluticasone/Vilanterol (Fluticasone/Vilanterol 100/25mcg 14 Puffs/Inhaler) 1 puffs INH DAILY [facility] Stop: 02/13/22 22:44 Last Admin: 01/15/22 08:16 Dose: 1 puffs Documented By: Admin: 01/14/22 23:48 Dose: 1 puffs Documented By: BLAISE Gabapentin (Gabapentin 800 Mg Tab) 800 mg PO TID [facility] Stop: 02/13/22 22:09 Last Admin: 01/15/22 08:17 Dose: 800 mg Documented By: Admin: 01/14/22 23:47 Dose: 800 mg Documented By: BLAISE Insulin Aspart (Insulin Aspart Per Unit) 0 units SC ACHS [facility] Stop: 02/14/22 07:29 Last Admin: 01/15/22 08:21 Dose: Not Given Documented By: LIZ Lisinopril (Lisinopril 10 Mg Tab) 10 mg PO DAILY [facility] Stop: 02/14/22 08:59 Last Admin: 01/15/22 08:17 Dose: 10 mg Documented By: LIZ Miscellaneous (Remove Nicoderm Patch) 1 each N/A DAILY@0859 [facility] Stop: 02/14/22 08:58 Last Admin: 01/15/22 08:18 Dose: 1 each Documented By: LIZ Nicotine (Nicotine 21 Mg/24 Hr Tdsy) 21 mg TD QAM [facility] Stop: 02/13/22 22:09 Last Admin: 01/15/22 08:14 Dose: 21 mg Documented By: Admin: 01/14/22 23:47 Dose: 21 mg Documented By: BLAISE Prednisone (Prednisone 20 Mg Tab) 40 mg PO DAILY [facility] Stop: 01/18/22 09:01 Last Admin: 01/15/22 08:17 Dose: 40 mg Documented By: Admin: 01/14/22 23:46 Dose: 40 mg Documented By: BLAISE Discontinued Medications Enoxaparin Sodium (Enoxaparin Inj 40 Mg/0.4 Ml Syr) 30 mg SQ Q24H [facility] Stop: 02/13/22 21:59 Last Admin: 01/15/22 07:32 Dose: Not Given Documented By: LIZ Ioversol (Optiray 320 125ml) 118 ml IV ONCE ONE Stop: 01/14/22 17:11 Last Admin: 01/14/22 17:10 Dose: 118 ml Documented By: RUTHY Fluticasone/Salmeterol (Fluticasone/Salmeterol 100/50 (Advair) 14 Puff/1 Inhaler) 1 puffs INH BID [facility] Stop: 02/13/22 22:09 Last Admin: 01/15/22 07:32 Dose: Not Given Documented By: LIZ Description This is a 21 electrode EEG with a single channel dedicated to limited EKG. The electrodes were placed in accordance with the International 10-20 system. There is a posterior dominant rhythm of 10 Hz which is symmetrically distributed and attenuates with eye opening. There is a normal anterior to posterior organization. Photic stimulation is unremarkable. Hyperventilation is not performed. There is a symmetric frontal beta rhythm. There is no focal slowing. There are no epileptiform abnormalities. There are no sleep changes. Interpretation Normal-appearing awake/drowsy EEG. A normal EEG does not completely exclude a diagnosis of epilepsy. Further clinical correlation may be needed. [facility] EEG Procedure Codes Indication for Procedure (1) Seizure-like activity: Neurology Neurology: 04961 EEG include record awake & drowsy
[2022-01-15] MEDS: CLOPIDOGREL BISULFATE 75 MG TAB PO SCH (17:16)
--- NOTE | 2022-01-15 17:51 | Hospitalist Progress Note ---
Date of Service January 15, 2022 Assessment & Plan (1) Seizure-like activity: Plan: Patient is 76 y/o M with PMH CAD, HTN, CKD II, tobacco use presented to ER with complaint of seizure-like activity today around 11AM. Around 11 AM today had sudden onset of ringing in his ears followed by uncontrolled movement of his arms and his legs. Was awake but unable to talk. No loss control bowel/bladder Seizure-like activity Transient ischemic attack Cerebrovascular disease --MRI Brain:No acute intracranial findings. Extensive white matter T2 hyperintense foci. Although nonspecific, these statistically reflect small vessel disease. --Head CTA:Negative CT angiogram of the brain with contrast. --Neck CTA:Essentially negative CT angiogram of the neck with contrast. --EEG:Normal-appearing awake/drowsy EEG. A normal EEG does not completely exclude a diagnosis of epilepsy. Further clinical correlation may be needed. --LDL:67 --Normal Toxicology screen --ECHO:pending -- Will need loop recorder as outpatient Continue aspirin 81 mg and Plavix 75 mg daily for 3 weeks and then transition to Plavix 75 mg monotherapy Continue atorvastatin Hold tramadol for now Appreciate neurology input Needs follow-up with neurology in 3 to 4 weeks. (2) Bronchitis: Plan: Suspect Underlying COPD and mild COPD exacerbation -Duonebs, Doxycycline, prednisone 40mg daily -Continue Advair Counseled to quit smoking (3) CAD (coronary artery disease): Plan: H/O [place] Denies CP, SOB -Continue aspirin, atorvastatin (4) Diabetes mellitus, type II: Plan: A1c: 6.7 Diet controlled -Novolog correction sliding scale and monitor (5) Hypertension: Plan: -Continue lisinopril (6) CKD (chronic kidney disease), stage II: Plan: Cr: 0.9. Baseline 1.1 -monitor renal functions, avoid nephrotoxic agents when possible (7) Chronic pain: Plan: History injury and chronic back pain -Hold tramadol with possible seizure like activity Hydrocodone prn (8) Tobacco use: Plan: -Smoking cessation encouraged -Nicotine patch DVT Px Lovenox SQ Code Status Full Code Disposition PT/OT prior to discharge Admission and Anticipated Discharge Date Admission Date: January 15, 2022 Subjective Patient is seen and examined at bedside States having minimal cough with expectoration Denies any dysuria, hematuria, increased urinary frequency Ringing sensation resolved Had EEG earlier today Offers no other complaints Review of Systems Review of Systems: All systems reviewed & are unremarkable except as noted in Subjective Physical Exam Physical Exam: Physical Exam: Vitals signs as noted above General Appearance:Thin, no apparent distress Head: normocephalic, Atraumatic Eyes: normal inspection, EOMI Neck: supple, Trachea midline Respiratory/Chest: Decreased breath sounds, scattered wheezing, rhonchi, No accessory muscle use Cardiovascular: S1, S2, No murmur Abdomen/GI:Soft, Non tender, Bowel sounds present Extremities/Musculoskeletal:normal inspection, no edema Neurologic/Psych:AAOX3, grossly no focal neurological deficits Skin: normal color, warm Results & Data Results & Data ([facility]) Vital Signs (Past 12 Hours) Vital Signs Temp Pulse Pulse Pulse Resp BP BP 01/15/22 15:10 82 01/15/22 11:44 37.0 C 73 16 128/74 01/15/22 08:23 89 01/15/22 08:23 36.8 C 90 18 113/79 01/15/22 07:27 75 14 01/15/22 06:00 75 19 132/85 Pulse Ox O2 Del Method O2 Flow Rate 01/15/22 15:10 01/15/22 11:44 90 Nasal Cannula 3 01/15/22 08:23 01/15/22 08:23 92 Room Air 01/15/22 07:27 90 01/15/22 06:00 89 L Room Air Laboratory Results Short CBC 01/15/22 Range/Units 08:56 WBC 5.15 (4.8-10.8) K/ul Hgb 14.9 (14.0-18.0) g/dl Hct 45.0 (40.1-51.0) % Plt Count 200 (130-400) K/uL BMP 01/15/22 08:56 Sodium 137 Potassium 4.1 Chloride 101 Carbon Dioxide 28 BUN 15 Creatinine 0.87 Glucose 229 H Calcium 9.1 Urine 01/15/22 Range/Units 07:52 Urine Color Yellow Urine Appearance Clear (Clear) Urine pH 7.0 (4.5-7.5) Ur Specific [place] 1.034 H (1.000-1.030) Urine Protein Negative (Negative) Urine Glucose (UA) Negative (Negative)
[2022-01-15] MEDS: LANTUS PER UNIT CHARGE SQ SCH (21:45)
[2022-01-15] MEDS: ENOXAPARIN INJ 30 MG/0.3 ML SYR SQ SCH (21:50)
--- NOTE | 2022-01-16 05:49 | Electrocardiogram Report ---
Test Reason : Blood Pressure : / mmHG Vent. Rate : 061 BPM Atrial Rate : 061 BPM P-R Int : 156 ms QRS Dur : 080 ms QT Int : 394 ms P-R-T Axes : 053 061 073 degrees QTc Int : 396 ms Poor data quality, interpretation may be adversely affected Normal sinus rhythm Anteroseptal infarct , age undetermined Abnormal ECG When compared with ECG of 17-DEC-2004 14:34, Anteroseptal infarct is now Present Confirmed by Edvin Huynh ([id number]) on 01/16/2022 5:48:37 AM Referred By: REFERRED SELF Confirmed By:Edvin Huynh
[2022-01-16] MEDS: ALBUT/IPRATROP 3MG/0.5MG NEB 3 ML VIAL NEB SCH ×4 (06:59→20:18)
[2022-01-16] MEDS: NICOTINE 21 MG/24 HR TDSY TD SCH (08:26)
[2022-01-16] MEDS: predniSONE 20 MG TAB PO SCH (08:26)
[2022-01-16] MEDS: CLOPIDOGREL BISULFATE 75 MG TAB PO SCH (08:27)
[2022-01-16] MEDS: ATORVASTATIN 40 MG TAB PO SCH (08:27)
[2022-01-16] MEDS: lisinopril 10 MG TAB PO SCH (08:27)
[2022-01-16] MEDS: DOXYCYCLINE HYCLATE 100 MG CAP PO SCH ×2 (08:27→21:12)
[2022-01-16] MEDS: GABAPENTIN 800 MG TAB PO SCH ×3 (08:27→21:11)
[2022-01-16] MEDS: carvediloL 6.25 MG TAB PO SCH ×2 (08:27→21:09)
[2022-01-16] MEDS: ASPIRIN 81 MG ECTAB PO SCH (08:27)
[2022-01-16] MEDS: FLUTICASONE/VILANTEROL 100/25MCG 14 PUFFS/INHALER INH SCH (08:28)
[2022-01-16] MEDS: INSULIN ASPART PER UNIT SC SCH ×4 (08:28→21:12)
[2022-01-16] MEDS: LANTUS PER UNIT CHARGE SQ SCH ×2 (09:09→21:12)
[2022-01-16 10:17] LABS: BUN Creatinine Ratio 22.2 (10-20); Calcium 8.9 mg/dl (8.5-10.1); Creatinine Clr Calc Pharmacy 64.2 ml/min; Est GFR (African American) 96.5 ml/min; Est GFR (Non-African American) 83.3 ml/min; Potassium 3.8 mmol/L (3.5-5.1)
--- NOTE | 2022-01-16 10:19 | Neurology Progress Note ---
Date of Service January 16, 2022 Assessment & Plan (1) TIA (transient ischemic attack): (2) Cerebrovascular disease: (3) Seizure-like activity: Plan 76-year-old male with an unusual presentation potentially consistent with "shaking TIA" related to low perfusion or thromboembolism. No supportive evidence of seizure disorder at this time. His echocardiogram did reveal large sized apical, septal, and anteroseptal wall motion abnormality with hypokinesis to akinesis of the segments. A follow-up echocardiogram did not find evidence of thrombus at the apex. An underlying cardiac arrhythmia may not be completely excluded. As per my initial recommendations, continue with dual antiplatelet therapy, daily low-dose aspirin, and clopidogrel 75 mg for 3 weeks, followed by clopidogrel 75 mg/day monotherapy. Would also recommend mobile cardiac outpatient telemetry. Patient should also have an assessment with a gem technician regarding the echocardiogram findings to determine if additional evaluation or changes in his management are needed. Would not start an anticonvulsant medication at this time. No further immediate recommendations from a neurologic standpoint. I do not anticipate that this patient will require additional outpatient neurologic follow-up at this point in time. Admission and Anticipated Discharge Date Admission Date: January 15, 2022 Subjective Follow-up for seizure-like episode No further seizure-like episodes, no dizziness or other complaints. EEG completed yesterday was normal, no epileptiform abnormalities. Again, brain MRI negative for acute or subacute infarct but did reveal rather extensive confluent small vessel ischemic changes throughout both cerebral hemispheres as well as the melo. CT angiography of the head and neck was unremarkable although the left vertebral artery was dominant, but again, no obvious occlusive lesion identified. Transthoracic echocardiogram completed yesterday revealed moderate concentric left ventricular hypertrophy as well as a large sized apical, septal, and anteroseptal wall motion abnormality with hypokinesis to akinesis of the segments. Left ventricular systolic function mildly reduced, EF 40 to 45%. Left atrial size normal. Interatrial septum intact with no evidence for an ASD. Review of Systems Constitutional: no fever and no chills Eyes: no blind spots and no diplopia Neurologic: no localized weakness, no loss of sensation, no tremor(s), no headache(s) and no memory loss Results & Data ([facility]) Vital Signs (Past 12 Hours) Vital Signs Temp Pulse Pulse Resp BP Pulse Ox O2 Del Method 01/16/22 08:20 36.9 C 83 16 144/76 H 01/16/22 06:59 72 18 91 Nasal Cannula 01/16/22 02:50 36.9 C 70 18 126/71 91 Nasal Cannula 01/15/22 22:25 79 01/15/22 23:11 36.5 C 76 19 156/86 H 92 Nasal Cannula O2 Flow Rate 01/16/22 08:20 01/16/22 06:59 3 01/16/22 02:50 3 01/15/22 22:25 01/15/22 23:11 3 Laboratory Results WBC 5.15, hemoglobin 14.9, hematocrit 45.0, platelet count 200, sodium 137, potassium 4.1, BUN 15, creatinine 0.87, glucose 229, hemoglobin A1c 6.7, calcium 9.1, triglycerides 66, cholesterol 137, LDL 67, VLDL 13, HDL 57, urine talk screen was negative. Diagnostic Findings Brain MRI had revealed no acute findings, there was extensive white matter T2 hyperintense foci consistent with small vessel ischemic disease. CT angiography of the head and neck unremarkable. Echocardiography results are as described above. Exam (Neuro) Neurologic: Oriented to:: Person, Place and Time Attention: Span Intact and Concentration Intact Speech Fluency: negative Dysarthria or Dysfluency Sp eech Aphasia: negative Aphasia Fund of Knowledge: Vocabulary Cranial Nerves: Normal II, III, IV, and VII Motor Strength: Normal Lower Extremities and Normal Upper Extremities Muscle Bulk/Involuntary Movements: No Involuntary Movements Coordination: Normal Coding Level of Care Code 94856 Subseq Hosp Care Lvl 2 Diagnoses TIA (transient ischemic attack) G45.9 Cerebrovascular disease I67.9 Seizure-like activity R56.9
--- NOTE | 2022-01-16 17:11 | Hospitalist Progress Note ---
Date of Service January 16, 2022 Assessment & Plan (1) Seizure-like activity: Plan: Patient is 76 y/o M with PMH CAD, HTN, CKD II, tobacco use presented to ER with complaint of seizure-like activity today around 11AM. Around 11 AM today had sudden onset of ringing in his ears followed by uncontrolled movement of his arms and his legs. Was awake but unable to talk. No loss control bowel/bladder Seizure-like activity Transient ischemic attack Possible Vertebro-basilar ischemia Cerebrovascular disease --MRI Brain:No acute intracranial findings. Extensive white matter T2 hyperintense foci. Although nonspecific, these statistically reflect small vessel disease. --Head CTA:Negative CT angiogram of the brain with contrast. --Neck CTA:Essentially negative CT angiogram of the neck with contrast. --EEG:Normal-appearing awake/drowsy EEG. A normal EEG does not completely exclude a diagnosis of epilepsy. Further clinical correlation may be needed. --LDL:67 --Normal Toxicology screen --ECHO: Moderate concentric LVH. Large sized apical, septal and anteroseptal wall motion abnormality with hypokinesis to akinesis of the segments. Left ventricle systolic function is mildly reduced. EF 40 to 45%. No significant aortic regurgitation or stenosis. Grade 1 diastolic dysfunction. No left ventricular apical mural thrombus visualized. Echo unchanged from prior studies. -- Will need loop recorder as outpatient Continue aspirin 81 mg and Plavix 75 mg daily for 3 weeks and then transition to Plavix 75 mg monotherapy Continue atorvastatin Hold tramadol for now Appreciate neurology input Needs follow-up with neurology in 3 to 4 weeks. Continue current medications (2) Bronchitis: Plan: Suspect Underlying COPD and mild COPD exacerbation -Duonebs, Doxycycline, prednisone 40mg daily -Continue Advair Counseled to quit smoking Will need 2 step prior to discharge (3) CAD (coronary artery disease): Plan: H/O [place] Denies CP, SOB -Continue aspirin, atorvastatin (4) Diabetes mellitus, type II: Plan: A1c: 6.7 Diet controlled -Novolog correction sliding scale and monitor (5) Hypertension: Plan: -Continue lisinopril (6) CKD (chronic kidney disease), stage II: Plan: Cr: 0.9. Baseline 1.1 -monitor renal functions, avoid nephrotoxic agents when possible (7) Chronic pain: Plan: History injury and chronic back pain -Hold tramadol with possible seizure like activity Hydrocodone prn (8) Tobacco use: Plan: -Smoking cessation encouraged -Nicotine patch DVT Px Lovenox SQ Code Status Full Code Disposition PT/OT prior to discharge Admission and Anticipated Discharge Date Admission Date: January 15, 2022 Subjective Patient is seen and examined at bedside No recurrence of seizure-like activity or ringing sensation No new complaints Family at bedside Cough much improved Denies any chest pain, dyspnea, dizziness, nausea, abdominal pain Review of Systems Review of Systems: All systems reviewed & are unremarkable except as noted in Subjective Physical Exam Physical Exam: Physical Exam: Vitals signs as noted above General Appearance:Thin, no apparent distress Head: normocephalic, Atraumatic Eyes: normal inspection, EOMI Neck: supple, Trachea midline Respiratory/Chest: Decreased breath sounds, scattered wheezing, rhonchi, No accessory muscle use Cardiovascular: S1, S2, No murmur Abdomen/GI:Soft, Non tender, Bowel sounds present Extremities/Musculoskeletal:normal inspection, no edema Neurologic/Psych:AAOX3, grossly no focal neurological deficits Skin: normal color, warm Results & Data Results & Data ([facility]) Vital Signs (Past 12 Hours) Vital Signs Temp Pulse Pulse Resp BP Pulse Ox O2 Del Method 01/16/22 14:30 79 01/16/22 15:32 36.8 C 84 16 161/87 H 90 Nasal Cannula 01/16/22 14:18 76 18 90 Nasal Cannula 01/16/22 11:55 36.3 C L 69 16 132/79 91 Room Air 01/16/22 07:00 61 01/16/22 11:27 73 18 90 Nasal Cannula 01/16/22 11:00 Nasal Cannula 01/16/22 08:20 36.9 C 83 16 144/76 H 01/16/22 06:59 72 18 91 Nasal Cannula O2 Flow Rate 01/16/22 14:30 01/16/22 15:32 2 01/16/22 14:18 2 01/16/22 11:55 01/16/22 07:00 01/16/22 11:27 2 01/16/22 11:00 2 01/16/22 08:20 01/16/22 06:59 3 Laboratory Results BMP 01/16/22 09:06 Sodium 139 Potassium 3.8 Chloride 104 Carbon Dioxide 29 BUN 20 Creatinine 0.90 Glucose 143 H Calcium 8.9
[2022-01-16] MEDS: ENOXAPARIN INJ 30 MG/0.3 ML SYR SQ SCH (21:13)
[2022-01-17] MEDS: ALBUT/IPRATROP 3MG/0.5MG NEB 3 ML VIAL NEB SCH ×3 (07:25→14:32)
[2022-01-17] MEDS: INSULIN ASPART PER UNIT SC SCH ×2 (08:19→12:14)
[2022-01-17] MEDS: LANTUS PER UNIT CHARGE SQ SCH (08:20)
[2022-01-17] MEDS ORDERED: ALBUTEROL HFA 8 GM INHALER INH PRN (08:23)
[2022-01-17] MEDS: ATORVASTATIN 40 MG TAB PO SCH (08:24)
[2022-01-17] MEDS: CLOPIDOGREL BISULFATE 75 MG TAB PO SCH (08:24)
[2022-01-17] MEDS: predniSONE 20 MG TAB PO SCH (08:24)
[2022-01-17] MEDS: GABAPENTIN 800 MG TAB PO SCH (08:24)
[2022-01-17] MEDS: NICOTINE 21 MG/24 HR TDSY TD SCH (08:24)
[2022-01-17] MEDS: lisinopril 10 MG TAB PO SCH (08:24)
[2022-01-17] MEDS: carvediloL 6.25 MG TAB PO SCH (08:24)
[2022-01-17] MEDS: DOXYCYCLINE HYCLATE 100 MG CAP PO SCH (08:24)
[2022-01-17] MEDS: ASPIRIN 81 MG ECTAB PO SCH (08:24)
[2022-01-17] MEDS: FLUTICASONE/VILANTEROL 100/25MCG 14 PUFFS/INHALER INH SCH (08:25)
--- NOTE | 2022-01-17 11:42 | Hospitalist Progress Note ---
Date of Service January 17, 2022 Assessment & Plan (1) Seizure-like activity: Plan: Patient is 76 y/o M with PMH CAD, HTN, CKD II, tobacco use presented to ER with complaint of seizure-like activity today around 11AM. Around 11 AM today had sudden onset of ringing in his ears followed by uncontrolled movement of his arms and his legs. Was awake but unable to talk. No loss control bowel/bladder Seizure-like activity Transient ischemic attack Possible Vertebro-basilar ischemia Cerebrovascular disease --MRI Brain:No acute intracranial findings. Extensive white matter T2 hyperintense foci. Although nonspecific, these statistically reflect small vessel disease. --Head CTA:Negative CT angiogram of the brain with contrast. --Neck CTA:Essentially negative CT angiogram of the neck with contrast. --EEG:Normal-appearing awake/drowsy EEG. A normal EEG does not completely exclude a diagnosis of epilepsy. Further clinical correlation may be needed. --LDL:67 --Normal Toxicology screen --ECHO: Moderate concentric LVH. Large sized apical, septal and anteroseptal wall motion abnormality with hypokinesis to akinesis of the segments. Left ventricle systolic function is mildly reduced. EF 40 to 45%. No significant aortic regurgitation or stenosis. Grade 1 diastolic dysfunction. No left ventricular apical mural thrombus visualized. Echo unchanged from prior studies. -- Will need loop recorder as outpatient Continue aspirin 81 mg and Plavix 75 mg daily for 3 weeks and then transition to Plavix 75 mg monotherapy Continue atorvastatin Tramadol discontinued Appreciate neurology input Advised to follow-up with neurology in 3 to 4 weeks. (2) Bronchitis: Plan: Suspect Underlying COPD and mild COPD exacerbation -Duonebs, Doxycycline, prednisone 40mg daily -Continue Advair Counseled to quit smoking 2 step: Doesn't qualify for supplemental oxygen (3) CAD (coronary artery disease): Plan: H/O [place] Denies CP, SOB -Continue aspirin, atorvastatin (4) Diabetes mellitus, type II: Plan: A1c: 6.7 Diet controlled -Novolog correction sliding scale and monitor Start on Metformin upon discharge (5) Hypertension: Plan: -Continue lisinopril (6) CKD (chronic kidney disease), stage II: Plan: Cr: 0.9. Baseline 1.1 -monitor renal functions, avoid nephrotoxic agents when possible (7) Chronic pain: Plan: History injury and chronic back pain -Hold tramadol with possible seizure like activity Hydrocodone prn (8) Tobacco use: Plan: -Smoking cessation encouraged -Nicotine patch DVT Px Lovenox SQ Code Status Full Code Disposition Home Admission and Anticipated Discharge Date Admission Date: January 15, 2022 Subjective Patient is seen and examined at bedside States doing much better today Offers no complaints Cough continues to improved Denies any chest pain, dyspnea, dizziness, nausea, abdominal pain Eager to get discharged Review of Systems Review of Systems: All systems reviewed & are unremarkable except as noted in Subjective Physical Exam Physical Exam: Physical Exam: Vitals signs as noted above General Appearance:Thin, no apparent distress Head: normocephalic, Atraumatic Eyes: normal inspection, EOMI Neck: supple, Trachea midline Respiratory/Chest: Decreased breath sounds, CTA, No accessory muscle use Cardiovascular: S1, S2, No murmur Abdomen/GI:Soft, Non tender, Bowel sounds present Extremities/Musculoskeletal:normal inspection, no edema Neurologic/Psych:AAOX3, grossly no focal neurological deficits Skin: normal color, warm Results & Data Results & Data ([facility]) Vital Signs (Past 12 Hours) Vital Signs Temp Pulse Pulse Pulse Pulse Pulse Pulse 01/17/22 10:50 74 01/17/22 08:52 110 H 105 H 90 01/17/22 08:15 36.2 C L 72 01/17/22 07:28 67 01/17/22 07:25 72 01/17/22 04:00 36.6 C 66 01/16/22 23:52 36.7 C 73 Resp Resp Resp Resp BP Pulse Ox Pulse Ox 01/17/22 10:50 16 89 L 01/17/22 08:52 20 20 18 90 01/17/22 08:15 18 142/82 H 90 01/17/22 07:28 01/17/22 07:25 18 93 01/17/22 04:00 18 123/76 92 01/16/22 23:52 18 158/77 H 92 Pulse Ox Pulse Ox O2 Del Method O2 Flow Rate 01/17/22 10:50 Room Air 01/17/22 08:52 90 89 L 01/17/22 08:15 Nasal Cannula 2 01/17/22 07:28 01/17/22 07:25 Nasal Cannula 2 01/17/22 04:00 Nasal Cannula 2 01/16/22 23:52 Nasal Cannula 2
[2022-01-17] MEDS ORDERED: STROKE PATIENT DISCHARGE STA (11:56)
--- NOTE | 2022-01-17 11:57 | Discharge Summary ---
Date of Service January 17, 2022 Admission HPI Per Admitting Provider Patient is 76 y/o M with PMH CAD, HTN, CKD II, tobacco use presented to ER with complaint of seizure-like activity today. Patient states around 11 AM today had sudden onset of ringing in his ears followed by uncontrolled movement of his arms and his legs. Patient states he was aware of what was going on however he was unable to speak during the event. His granddaughters were with him on this happened and said the episode lasted approximately 1 to 2 minutes and self resolved. Granddaughter was able to keep patient in chair to avoid from falling and hitting head. Denies any recent head trauma. Denies any loss of control of bowels or bladder. After event he was able to walk around without difficulty. Denies history seizure disorder. Denies any new medications or OTC supplements. Takes Tramadol twice daily for chronic back pain from prior injury. Ate pancakes for breakfast. Smokes 1/2ppd and reports chronic cough however recent productive cough. Denies SOB. Denies fever/chills, diaphoresis, N/V/D/C, GUTIERREZ, dizziness, syncope, vision changes, neck pain, CP, SOB, orthopnea, palpitations, cough, sore throat, choking, otalgia, rhinorrhea, abdominal pain, paresthesias, weakness, extremity weakness, extremity edema, rashes, urinary symptoms. Admission Exam Per Admitting Provider Physical Exam Physical Exam: General: no distress, WDWN Head: normocephalic, atraumatic Eyes: PERRL, EOM's intact, conjunctiva non-injected, anicteric ENT: normal inspection external ears, nose, mucous membranes moist Neck: supple, trachea midline Lungs: no respiratory distress, +diffuse wheezing, no rhonchi/rales CV: RRR, no murmur, no pretibial edema Abd: normal BS, soft, non-tender Ext: no cyanosis, no calf tenderness Neuro: A&O x 3, no focal deficits noted, normal affect Skin: warm, dry Principal Diagnosis Transient ischemic attack Acute COPD Exacerbation Discharge Data Allergies Allergy/AdvReac Type Severity Reaction Status Date / Time No Known Allergies Allergy Verified 01/14/22 16:40 Consultations 01/14/22 19:31 ED Decision to Admit Stat 01/15/22 08:00 Consult Neurology Routine Ordered Studies 01/14/22 13:09 CT head/brain wo con Stat 01/14/22 16:35 CT angio head w con Stat CT angio neck with con Stat 01/14/22 20:59 MR brain wo con Routine Hospital Course (1) Seizure-like activity: Patient is 76 y/o M with PMH CAD, HTN, CKD II, tobacco use presented to ER with complaint of seizure-like activity today around 11AM. Around 11 AM today had sudden onset of ringing in his ears followed by uncontrolled movement of his arms and his legs. Was awake but unable to talk. No loss control bowel/bladder Seizure-like activity Transient ischemic attack Possible Vertebro-basilar ischemia Cerebrovascular disease --MRI Brain:No acute intracranial findings. Extensive white matter T2 hyperintense foci. Although nonspecific, these statistically reflect small vessel disease. --Head CTA:Negative CT angiogram of the brain with contrast. --Neck CTA:Essentially negative CT angiogram of the neck with contrast. --EEG:Normal-appearing awake/drowsy EEG. A normal EEG does not completely exclude a diagnosis of epilepsy. Further clinical correlation may be needed. --LDL:67 --Normal Toxicology screen --ECHO: Moderate concentric LVH. Large sized apical, septal and anteroseptal wall motion abnormality with hypokinesis to akinesis of the segments. Left ventricle systolic function is mildly reduced. EF 40 to 45%. No significant aortic regurgitation or stenosis. Grade 1 diastolic dysfunction. No left ventricular apical mural thrombus visualized. Echo unchanged from prior studies. -- Will need loop recorder as outpatient Continue aspirin 81 mg and Plavix 75 mg daily for 3 weeks and then transition to Plavix 75 mg monotherapy Continue atorvastatin Tramadol discontinued Appreciate neurology input Advised to follow-up with neurology in 3 to 4 weeks. (2) Bronchitis: Suspect Underlying COPD and mild COPD exacerbation -Duonebs, Doxycycline, prednisone 40mg daily -Continue Advair Counseled to quit smoking 2 step: Doesn't qualify for supplemental oxygen (3) CAD (coronary artery disease): H/O [facility] Denies CP, SOB -Continue aspirin, atorvastatin (4) Diabetes mellitus, type II: A1c: 6.7 Diet controlled -Novolog correction sliding scale and monitor Start on Metformin upon discharge (5) Hypertension: -Continue lisinopril (6) CKD (chronic kidney disease), stage II: Cr: 0.9. Baseline 1.1 -monitor renal functions, avoid nephrotoxic agents when possible (7) Chronic pain: History injury and chronic back pain -Hold tramadol with possible seizure like activity Hydrocodone prn (8) Tobacco use: -Smoking cessation encouraged -Nicotine patch DVT Px Lovenox SQ Code Status Full Code Disposition Home Total Time Total Time Spent Total Time Spent (In Minutes): 45 minutes Discharge Plan Discharge Items Patient Disposition: Home - Self-Care Reason For Visit: SEIZURE LIKE ACTIVITY Discharge Diagnosis: Transient ischemic attack Acute COPD Exacerbation Activity: Per Instructions section Exercise/Sports: Gradually increase as tolerated Non-emergency contact: Primary Care Provider and Neurologist Call non-emergency contact if: you have any medication questions, your symptoms worsen, your pain is concerning for you and you have a fever Follow-up/Referrals: Darius Maxwell MD [Primary Care Provider] - Diet: Carb Consistent or DM2 and Heart Healthy Addtl Attending Provider Instructions: Follow up with your Primary Care physician in 1 week Follow up with your Neurologist Dr. Castañeda in 3-4 weeks. Please call for appointment. ---Continue aspirin 81 mg daily and Plavix 75 mg daily for 3 weeks and then transition to Plavix 75 mg only. --Complete the antibiotic course doxycycline as prescribed. --Use inhalers regularly as advised. --- Quit smoking tobacco as advised. --- Start taking metformin for management of diabetes mellitus. --Stop taking Tramadol as it can trigger seizure activity. Seek immediate medical attention if your symptoms reoccur or worsen Please take all medications as instructed on discharge list below. Please call if you have any questions or problems. You can reach a [facility] hospitalist on duty at [facility] 24 hours a day by calling [phone] Risk Factors for Stroke: You can reduce your chances of stroke by working with your medical provider to adopt a healthy lifestyle. Some specific ways to lower your chance of stroke are: * If you are a smoker, now is the time to stop smoking cigarettes * If you are diabetic, improve the control of your blood sugars * Avoid excessive amounts of alcohol * Control high blood pressure * Lose weight if you are overweight * Be sure to lead an active lifestyle * Eat a healthy diet low in salt, cholesterol and fat You should know about other risk factors for stroke that you are unable to control. These include: * Age 55 years or older * Male gender * Certain racial groups: , or / * Family History of Stroke, Mini stroke or Heart Attack * Sickle Cell Disease Follow Up: It is important for you to keep your follow up appointments with your medical provider. Who to Call and When: Medical Emergencies: Call 911 immediately if you experience any of the following warning signs and symptoms of Stroke: * Sudden numbness or weakness of the face, arm or leg, especially on one side of the body * Sudden confusion, trouble speaking or understanding * Sudden trouble seeing in one or both eyes * Sudden trouble walking, dizziness, loss of balance or coordination * Sudden severe headache with no cause Do not delay calling 911 if you experience any warning signs or symptoms of a stroke. Delay in seeking medical attention may affect what treatments can be given to you. . Pending Studies at Discharge: No Stand-Alone Forms: My [facility], Smoking Cessation Medications and DC Order Prescriptions: New doxycycline hyclate 100 mg Capsule 100 mg PO BID Qty: 4 0RF clopidogrel 75 mg Tablet 75 mg PO QAM Qty: 30 1RF fluticasone furoate-vilanterol [Breo Ellipta] 100-25 mcg/dose Blister With Device 1 inh inhalation DAILY Qty: 60 1RF albuterol sulfate [Ventolin HFA] 90 mcg/actuation Hfa Aerosol Inhaler 2 puff inhalation Q6H PRN (Reason: shortness of breath or wheezing) Qty: 6.7 1RF metformin 500 mg tablet extended release 24 hr 500 mg PO DAILY Qty: 30 1RF Continued atorvastatin 40 mg tablet 40 mg PO DAILY carvedilol 6.25 mg tablet 6.25 mg PO BID alendronate 70 mg tablet 70 mg PO WK Rx Instructions: TAKES ON SUNDAYS aspirin 81 mg Tablet,Delayed Release (Dr/Ec) 81 mg PO DAILY gabapentin 800 mg tablet 800 mg PO TID lisinopril 10 mg tablet 10 mg PO DAILY Discontinued tramadol 50 mg tablet 50 mg PO Q6H PRN (Reason: Pain) Discharge Orders: Discharge Order (Routine); Ordered 01/17/22 Ordered By: Willem Burnham/Other Patient Handouts: Managing Type 2 Diabetes Admission Data Admit Date/Time: 01/15/22 13:00 Attending Provider: Willem Tee Admit Provider: Earle Barahona Primary Care Provider: Darius Maxwell Other Providers: Earle Barahona ; Aron Castañeda
--- NOTE | 2022-01-17 14:55 | Pharmacy Report ---
Pharmacist Stroke Counseling - Date of Service January 17, 2022 - Scope: Pharmacy has been consulted to provide medication discharge counseling for this patient admitted with [ischemic stroke] [hemorrhagic stroke] [transient ischemic attack] as per the Pharmacist Discharge Counseling for Stroke Patients Laquita col. - Medications on Discharge: Medication Instructions Recorded Confirmed alendronate 70 mg tablet 70 mg PO WK 01/14/22 01/14/22 aspirin 81 mg tablet,delayed 81 mg PO DAILY 01/14/22 01/14/22 release atorvastatin 40 mg tablet 40 mg PO DAILY 01/14/22 01/14/22 carvedilol 6.25 mg tablet 6.25 mg PO BID 01/14/22 01/14/22 gabapentin 800 mg tablet 800 mg PO TID 01/14/22 01/14/22 lisinopril 10 mg tablet 10 mg PO DAILY 01/14/22 01/14/22 Medication Instructions Recorded albuterol sulfate 90 mcg/actuation 2 puff inhalation Q6H PRN 01/17/22 aerosol inhaler (Ventolin HFA) shortness of breath or wheezing #6.7 grams blood sugar diagnostic #100 ea 01/17/22 blood-glucose meter (OneTouch #1 ea 01/17/22 Verio Meter) clopidogrel 75 mg tablet 75 mg PO QAM #30 tabs 01/17/22 doxycycline hyclate 100 mg capsule 100 mg PO BID #4 caps 01/17/22 fluticasone furoate 100 1 inh inhalation DAILY #60 ea 01/17/22 mcg-vilanterol 25 mcg/dose inhalation powder (Breo Ellipta) lancets #200 ea 01/17/22 metformin 500 mg tablet,extended 500 mg PO DAILY #30 tabs 01/17/22 release 24 hr - Action: The above medications, specifically ones for stroke treatment/prophylaxis, have been reviewed in detail with the patient and/or patient call center representative(s) prior to discharge. This includes indication, common adverse reactions, drug interactions, and medication administration. Medication counseling has been employed using the teach-back method to ensure understanding. - Outcome: The patient and/or patient call center representative(s) have demonstrated understanding of the medications. Spoke with patient's daughter regarding medications per patient request. Reviewed all new medications with her and discussed side effects. Recommended that she bring a list of new medications with them when they go to PCP's office. Thank you for allowing pharmacy to be involved in the care of this patient. Please call [phone] with any additional questions
== END 2022-01-17 15:03 | disposition home or self-care (01) | DRG 69 ==
LOC: ED 12:31 → EDINP 12:31 → SUATTDRO 20:59 → 2W 22:10

== ENCOUNTER 2023-08-09 17:58 | Inpatient (IN) ==
--- NOTE | 2023-08-09 18:31 | ED Triage Note ---
Date of Service August 09, 2023 Provider in Triage Author: Peggy Barboza History of Present Illness This patient was briefly evaluated while in triage. An abbreviated physical exam was performed. This patient is a 78-year-old Male who presents to the ED for evaluation of left should pain x 1 month. He has been going to see his PCP and it has not been getting any better so he decided to come in today. He states the pain radiates down his left arm and into his thumb and index finger. Of note, patient is audibly wheezing on evaluation and reports that he thinks due to this ongoing pain he is getting sick. Physical Exam GENERAL: Non-toxic and in no acute distress. HEENT: Pupils equal. No obvious scleral icterus. HEART: Regular rate and rhythm. LUNGS: Inspiratory and expiratory wheezes heard throughout. NEURO: Alert and oriented. No obvious neurological deficits on quick neuro exam. Initial orders for labs and / or imaging were placed and patient was placed in the waiting area until a bed is available. Please see further documentation for the full ED course.
[2023-08-09 18:55] LABS: Basophils # (auto) 0.02 K/uL (0.00-0.20); Basophils % (auto) 0.4 %; Eosinophils # (auto) 0.08 K/uL (0.00-0.50); Eosinophils % (auto) 1.4 %; Hematocrit (blood only) 40.3 % (42.0-52.0); Hemoglobin 13.2 g/dl (14.0-18.0); Immature Granulocytes # (auto) 0.01 K/uL (0.01-0.20); Immature Granulocytes % (auto) 0.2 %; Lymphocytes # (auto) 0.64 K/uL (1.20-3.40); Lymphocytes % (auto) 11.3 %; Mean Corpuscular Hemoglobin 31.4 pg (25.0-34.0); Mean Corpuscular Hgb Conc 32.8 g/dL (32.0-36.0); Mean Platelet Volume 11.2 fL (9.4-12.4); Monocytes # (auto) 0.47 K/uL (0.11-0.59); Monocytes % (auto) 8.3 %; Neutrophils # (auto) 4.45 K/uL (1.40-6.50); Neutrophils % (auto) 78.4 %; Platelet Count 209 K/uL (130-400); RDW Coefficient of Variation 13.8 % (11.5-14.5); RDW Standard Deviation 48.4 fL (36.4-46.3); White Blood Count 5.67 K/ul (4.8-10.8)
--- NOTE | 2023-08-09 19:03 | XRay Report ---
XR chest 1V not portable HISTORY: 78 years-old Male left shoulder pain acute chest left shoulder pain COMPARISON: 01/14/2022 TECHNIQUE: PA view of the chest FINDINGS: Cardiac silhouette is enlarged. Pulmonary vascular congestion with nonspecific interstitial coarsenin g. There are chronic nodular foci/hematoma within the lungs are intact. IMPRESSION: Cardiomegaly with pulmonary vascular congestion and mild nonspecific interstitial coarsen ing suggestive of pulmonary edema. An interstitial pneumonia could appear similarly. ACT 112: Negative or not required by law. The above report was generated using voice recognition software. It may contain grammatical, syntax o r spelling errors. Electronically signed by: Rajinder Cortez M.D. 08/09/2023 7:02 PM
--- NOTE | 2023-08-09 19:09 | XRay Report ---
XR shoulder LT min 2V routine HISTORY: 78 years-old Male left shoulder pain . Left shoulder pain without reported trauma COMPARISON: None TECHNIQUE: 3 views of the left shoulder FINDINGS: Demineralized appearance of the bones. Severe glenohumeral and AC joint osteoarthritis. Mild lateral soft tissue swelling. No acute fracture, dislocation or opaque foreign body. IMPRESSION: Severe osteoarthritis without acute fracture or dislocation. ACT 112: Negative or not required by law. The above report was generated using voice recognition software. It may contain grammatical, syntax o r spelling errors. Electronically signed by: Rajinder Cortez M.D. 08/09/2023 7:08 PM
[2023-08-09 19:13] LABS: Albumin Globulin Ratio 1.4 (0.9-2); Albumin Level 3.9 gm/dl (3.4-5.0); BUN Creatinine Ratio 20.2 (10-20); Bilirubin,Total 0.5 mg/dl (0.2-1.0); Calcium 8.8 mg/dl (8.6-10.3); Creatinine Clr Calc Pharmacy 58.4 ml/min; Est GFR (African American) 84.8 ml/min; Est GFR (Non-African American) 73.2 ml/min; Globulin 2.8 gm/dl (2.5-4.0); Potassium 4.8 mmol/L (3.5-5.1); Total Protein 6.7 gm/dl (6.0-8.3)
[2023-08-09 19:23] LABS: Troponin I High Sensitivity 57.1 pg/ml (0-20)
[2023-08-09 19:29] LABS: Influenza A virus by PCR Negative (Neg); Influenza B virus by PCR Negative (Neg); RSV by PCR Negative (Neg); SARS CoV2 RNA(COVID-19) Ceph NEGATIVE (Negative)
[2023-08-09] MEDS: ASPIRIN CHEW 324 MG PO STA (19:33)
--- NOTE | 2023-08-09 19:36 | Emergency Department Note ---
Impression & Plan Acute non-ST elevation myocardial infarction (NSTEMI), Chest pain, Acute pain of left shoulder ED Provider Note NAME: NKECHI HARO AGE: 78 SEX: M : 1945 ARRIVES VIA: Walk-In INFORMANT: Patient, ED PROVIDER(S): Jordin Conde DO CHIEF COMPLAINT: Chest pain HPI: The patient is a 78-year-old male who presented to the emergency department for an evaluation of shoulder pain. 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 He also has a history of coronary artery disease and tobacco use. He presented to the emergency department for an evaluation of shoulder pain. The patient has been noticing posterior shoulder pain that worsens sometimes with movement. He denies having any exertional chest pain or shoulder pain. He has noticed some wheezing recently there is been worsening over the course the last few weeks. He states that this time he has no discomfort in his shoulder. He did localize the pain behind his shoulder blade. He denies having any fever leg swelling. The patient came the emergency department today because of the ongoing symptoms. ROS: See above HPI for pertinent positives & negatives. A total of 10 systems reviewed and were otherwise negative. PAST MEDICAL HISTORY: See Below PAST SURGICAL HISTORY: See Below FAMILY HISTORY: See Below SOCIAL HISTORY: See Below HOME MEDICATIONS: See Below ALLERGIES: See Below VITALS: See Below PHYSICAL EXAMINATION: GENERAL: Patient is awake alert in no acute distress patient is resting comfortably and showing no signs of anxiety EYES: The conjunctivae are clear. The pupils are round and reactive. EARS, NOSE, MOUTH AND THROAT: The nose is without any evidence of any deformity. NECK: The neck is nontender and supple. RESPIRATORY: Normal respiratory effort is noted there is no evidence of wheezing rhonchi or rales CARDIOVASCULAR: Regular rate and rhythm noted there no murmurs rubs or gallops normal S1 normal S2. GASTROINTESTINAL: The abdomen is soft. Abdomen is nontender. MUSCULOSKELETAL/EXTREMITIES: There is no evidence of gross deformity full range of motion is noted in the hips and shoulders. SKIN: There is no obvious evidence of any rash. There are no petechiae, pallor or cyanosis noted. NEUROLOGIC: Patient is awake alert and oriented x3 MEDICAL DECISION MAKING: The patient is a 78-year-old male who presented to the emergency department for an evaluation of chest discomfort. The patient described pain in his posterior chest behind his left shoulder blade. He was treated for arthritis by his family doctor. He did have some relief of symptoms but started noticing the pain was coming back. The pain was not necessarily exertional. The patient was found to have an abnormal EKG with subtle ST segment elevation it does appear to be increased compared to previous EKG. Cardiac biomarker was negative. I discussed the patient's laboratory and radiographic studies with him. I discussed his condition with the on-call [facility] hospitalist as well as the on-call [facility] cylinder press operator. The patient is having no pain at this time. He was treated with aspirin regimen as well as heparin in the emergency department. The patient continued to be pain-free. Triage Nursing notes reviewed. Prior medical records reviewed Vital Signs: reviewed and remarkable for Elevated blood pressure. Differential diagnosis: Cardiac ischemia, aortic dissection, pulmonary embolism, pneumothorax, pneumonia, pericarditis, myocarditis, esophageal rupture, GERD, cholecystitis, pancreatitis, musculoskeletal, as well as other pathologies. ER treatment provided: See below Diagnostics interpreted by me: ECG: EKG was obtained in the emergency department. My interpretation is normal sinus rhythm at 96 bpm. LVH was noted by voltage criteria. There was poor R wave progression noted with ST segment elevation noted in the apical and low lateral leads. This was compared to a tracing from January 14, 2022. The ST segment elevation is increased compared to the earlier tracing. A second EKG was obtained in the emergency department. My interpretation is sinus tachycardia [address] segment elevation in the apical and low lateral leads is still present. This compares similar to the earlier tracing obtained in the emergency department. Cardiac Monitoring: An order was placed for continuous cardiac monitoring. The monitor shows a rate of 76 bpm with sinus rhythm. Laboratory studies: As stated above and show below. Imaging studies: See below. Radiographic imaging was reviewed by myself Consultation(s): I discussed this case with Dr. Telles who is on-call for the [facility] hospitalist group. I discussed this case with Dr. Bergman who is on-call for the [facility] cardiology group. He feels as long as there is no contraindication to heparinization this may be appropriate at this time. ED COURSE: Procedures: none Critical Care: I have personally spent greater than 45 minutes of critical care time in the direct management of this patient. This includes bedside care, interpretation of diagnostic studies, and testing, discussion with consultants, patient, and family members, and other required patient management activities. This 45 minutes is in excess of all separately billable procedures. Past Med/Surg History Medical History Chronic pain CAD (coronary artery disease) Tobacco use CKD (chronic kidney disease), stage II Diabetes mellitus, type II High cholesterol Hypertension Surgical History H/O cervical spine surgery Family History Other Aneurysm Cancer Social History Smoking Status: Current every day smoker Tobacco Type: Cigarettes Cigarettes Per Day: 10; Do You Dip or Chew Tobacco: No; Hx Alcohol Use: Yes Hx Substance Use: No Preferred Language: Burmese Communication Ability: Effective Oven Operator Automatic Required: No Beliefs That Will Affect Care: None marital status: Current Living Situation: Family Current Living Situation Comment: lives with his granddaughter Feels Safe at Home: Yes Assistive Devices: None Allergies Allergies Allergy/AdvReac Type Severity Reaction Status Date / Time bee venom protein (honey bee) Allergy Severe Anaphylaxis--carries Verified 08/09/23 21:10 an Epipen Home Meds Home Medications Medication Instructions Recorded Confirmed alendronate 70 mg tablet 70 mg PO WK 01/14/22 08/09/23 atorvastatin 40 mg tablet 40 mg PO DAILY 01/14/22 08/09/23 carvedilol 6.25 mg tablet 6.25 mg PO BID 01/14/22 08/09/23 gabapentin 800 mg tablet 800 mg PO TID 01/14/22 08/09/23 lisinopril 10 mg tablet 10 mg PO DAILY 01/14/22 08/09/23 diclofenac sodium 75 mg 75 mg PO BID 08/09/23 08/09/23 tablet,delayed release epinephrine 0.3 mg/0.3 mL 0.3 mg IM DIRECTED PRN Allergic 08/09/23 08/09/23 injection, auto-injector (EpiPen) Reaction ipratropium bromide 17 2 puff inhalation QID PRN 08/09/23 08/09/23 mcg/actuation HFA aerosol inhaler NEEDED PER PT Previous Rx's Medication Instructions Recorded albuterol sulfate 90 mcg/actuation 2 puff inhalation Q6H PRN 01/17/22 aerosol inhaler (Ventolin HFA) shortness of breath or wheezing #6.7 grams blood sugar diagnostic #100 ea 01/17/22 blood-glucose meter (OneTouch #1 ea 01/17/22 Verio Meter) clopidogrel 75 mg tablet 75 mg PO QAM #30 tabs 01/17/22 fluticasone furoate 100 1 inh inhalation DAILY #60 ea 01/17/22 mcg-vilanterol 25 mcg/dose inhalation powder (Breo Ellipta) lancets #200 ea 01/17/22 metformin 500 mg tablet,extended 500 mg PO DAILY #30 tabs 01/17/22 release 24 hr Results & Data (ED) Vital Signs Vital Signs - 24 hr 08/09/23 17:59 08/09/23 19:36 08/09/23 19:40 Temperature 36.6 C Temperature Source Temporal Artery Scan Pulse Rate 103 H 98 H Pulse Rate [Apical] 93 H Respiratory Rate 18 18 Respiratory Effort / Characteristics Non-Labored Spontaneous Respiratory Depth Normal Respiratory Pattern Regular Blood Pressure 163/104 H Blood Pressure [Left Arm] 149/96 H Blood Pressure Mean 123 Blood Pressure Mean [Left Arm] 113 Blood Pressure Position [Left Arm] Lying Pulse Oximetry 93 92 Oxygen Delivery Method Room Air Sepsis Recent Fever Within 48 Hours No Sepsis New/Unexplained Change in Mental Status N/A Sepsis Action Taken by Nursing No Action Required 08/09/23 21:37 08/09/23 22:26 Temperature Temperature Source Pulse Rate Pulse Rate [Apical] 97 H 76 Respiratory Rate 20 20 Respiratory Effort / Characteristics Non-Labored Spontaneous Non-Labored Spontaneous Respiratory Depth Normal Normal Respiratory Pattern Regular Regular Blood Pressure Blood Pressure [Left Arm] 154/90 H 143/88 H Blood Pressure Mean Blood Pressure Mean [Left Arm] 111 106 Blood Pressure Position [Left Arm] Lying Lying Pulse Oximetry 92 91 Oxygen Delivery Method Room Air Room Air Sepsis Recent Fever Within 48 Hours Sepsis New/Unexplained Change in Mental Status Sepsis Action Taken by [facility] Medications Current Medication List: was personally reviewed by me Laboratory Data Attestation: I reviewed the patient's lab results. 08/09/23 18:38 08/09/23 18:38 Lab Results 08/09/23 08/09/23 Range/Units 18:38 19:36 WBC 5.67 (4.8-10.8) K/ul RBC 4.20 L (4.70-6.10) M/uL Hgb 13.2 L (14.0-18.0) g/dl Hct 40.3 L (42.0-52.0) % MCV 96.0 (80.0-100.0) fL MCH 31.4 (25.0-34.0) pg MCHC 32.8 (32.0-36.0) g/dL RDW Std Deviation 48.4 H (36.4-46.3) fL RDW Coeff of Marika 13.8 (11.5-14.5) % Plt Count 209 (130-400) K/uL MPV 11.2 (9.4-12.4) fL Immature Gran % (Auto) 0.2 % Neut % (Auto) 78.4 % Lymph % (Auto) 11.3 % Blanco % (Auto) 8.3 % Eos % (Auto) 1.4 % Baso % (Auto) 0.4 % Neut # (Auto) 4.45 (1.40-6.50) K/uL Lymph # (Auto) 0.64 L (1.20-3.40) K/uL Blanco # (Auto) 0.47 (0.11-0.59) K/uL Eos # (Auto) 0.08 (0.00-0.50) K/uL Baso # (Auto) 0.02 (0.00-0.20) K/uL Immature Gran # (Auto) 0.01 (0.01-0.20) K/uL APTT Cancelled PTT Ratio Cancelled Sodium 137 (136-145) mmol/L Potassium 4.8 (3.5-5.1) mmol/L Chloride 106 (98-107) mmol/L Carbon Dioxide 26 (21-32) mmol/L Anion Gap 5 (3-11) BUN 20 (6-23) mg/dl Creatinine 0.99 (0.6-1.4) mg/dl Est Cr Clr Drug Dosing 58.4 ml/min Est GFR ( Amer) 84.8 ml/min Est GFR (Non-Af Amer) 73.2 ml/min BUN/Creatinine Ratio 20.2 H (10-20) Glucose 157 H (70-99(Fasting)) mg/dl Calcium 8.8 (8.6-10.3) mg/dl Total Bilirubin 0.5 (0.2-1.0) mg/dl AST 15 (13-39) U/L ALT 15 (7-52) U/L Alkaline Phosphatase 63 (34-104) U/L Troponin I High Sens 57.1 H* 57.2 H* (0-20) pg/ml Total Protein 6.7 (6.0-8.3) gm/dl Albumin 3.9 (3.4-5.0) gm/dl Globulin 2.8 (2.5-4.0) gm/dl Albumin/Globulin Ratio 1.4 (0.9-2) SARS-CoV-2 (PCR) NEGATIVE (Negative) Influenza Type A (PCR) Negative (Neg) Influenza Type B (PCR) Negative (Neg) RSV (RT-PCR) Negative (Neg) Administered Medications Heparin Sodium/Dextrose (Heparin Sodium/Dextrose) 25,000 units in 500 mls @ 16 mls/hr IV .Q24H [facility]; Protocol Stop: 09/08/23 20:59 Last Admin: 08/09/23 21:31 Dose: 800 units/hr, 16 mls/hr Documented By: DANIEL Co-signed By: ANAHY Discontinued Medications Aspirin (Aspirin Chew 324 Mg) 324 mg PO NOW STA Stop: 08/09/23 19:28 Last Admin: 08/09/23 19:33 Dose: 324 mg Documented By: MAMTA Furosemide (Furosemide 40 Mg/4 Ml Vial) 40 mg IV ONE ONE Stop: 08/09/23 19:37 Last Admin: 08/09/23 19:54 Dose: 40 mg Documented By: DANIEL Imaging Data Attestation: I personally reviewed and interpreted this imaging study as follows: My Impression: 1 view chest x-ray was obtained in the emergency department. My interpretation is no free air or definite infiltrate, final report below. X-ray of the left shoulder was obtained. My interpretation is no fracture or dislocation, final report below Radiologist's Impression: Chest X-Ray 08/09/23 18:31 XR chest 1V not portable HISTORY: 78 years-old Male left shoulder pain acute chest left shoulder pain COMPARISON: 01/14/2022 TECHNIQUE: PA view of the chest FINDINGS: Cardiac silhouette is enlarged. Pulmonary vascular congestion with nonspecific interstitial coarsening. There are chronic nodular foci/hematoma within the lungs are intact. IMPRESSION: Cardiomegaly with pulmonary vascular congestion and mild nonspecific interstitial coarsening suggestive of pulmonary edema. An interstitial pneumonia could appear similarly. ACT 112: Negative or not required by law. The above report was generated using voice recognition software. It may contain grammatical, syntax or spelling errors. Electronically signed by: Rajinder Cortez M.D. 08/09/2023 7:02 PM Shoulder X-Ray 08/09/23 18:31 XR shoulder LT min 2V routine HISTORY: 78 years-old Male left shoulder pain . Left shoulder pain without reported trauma COMPARISON: None TECHNIQUE: 3 views of the left shoulder FINDINGS: Demineralized appearance of the bones. Severe glenohumeral and AC joint osteoarthritis. Mild lateral soft tissue swelling. No acute fracture, dislocation or opaque foreign body. IMPRESSION: Severe osteoarthritis without acute fracture or dislocation. ACT 112: Negative or not required by law. The above report was generated using voice recognition software. It may contain grammatical, syntax or spelling errors. Electronically signed by: Rajinder Cortez M.D. 08/09/2023 7:08 PM Discharge Plan Visit Data Chief Complaint: Shoulder Pain Stated Complaint: LT SHOULDER PAIN/DOWN ARM INTO HAND, FEELS ILL ED Provider: Jordin Conde Discharge Problem: Acute non-ST elevation myocardial infarction (NSTEMI), Chest pain, Acute pain of left shoulder Patient Disposition: Being Evaluated by Hospitalist Forms Stand Alone Forms: My [facility] Prescriptions Prescriptions: No Action atorvastatin 40 mg tablet 40 mg PO DAILY carvedilol 6.25 mg tablet 6.25 mg PO BID alendronate 70 mg tablet 70 mg PO WK Rx Instructions: TAKES ON SUNDAYS gabapentin 800 mg tablet 800 mg PO TID lisinopril 10 mg tablet 10 mg PO DAILY clopidogrel 75 mg Tablet 75 mg PO QAM Qty: 30 1RF fluticasone furoate-vilanterol [Breo Ellipta] 100-25 mcg/dose Blister With Device 1 inh inhalation DAILY Qty: 60 1RF albuterol sulfate [Ventolin HFA] 90 mcg/actuation Hfa Aerosol Inhaler 2 puff inhalation Q6H PRN (Reason: shortness of breath or wheezing) Qty: 6.7 1RF metformin 500 mg tablet extended release 24 hr 500 mg PO DAILY Qty: 30 1RF (DME) blood-glucose meter [OneTouch Verio Meter] Misc See Rx Instructions .Route Qty: 1 0RF Rx Instructions: As directed (DME) blood sugar diagnostic Strip See Rx Instructions .Route Qty: 100 0RF Rx Instructions: Check blood glucose three times a day before meal (DME) lancets Misc See Rx Instructions .Route Qty: 200 0RF Rx Instructions: Check blood glucose three times a day before meal diclofenac sodium 75 mg tablet,delayed release (DR/EC) 75 mg PO BID epinephrine [EpiPen] 0.3 mg/0.3 mL Auto-Injector 0.3 mg IM DIRECTED PRN (Reason: Allergic Reaction) ipratropium bromide 17 mcg/actuation Hfa Aerosol Inhaler 2 puff INHALATION QID PRN (Reason: NEEDED PER PT) Referrals Referrals: Darius Maxwell MD [Outside Practitioners] - Discharge Problem: Chest pain Qualifiers: Chest pain type: unspecified Qualified Code(s): R07.9 - Chest pain, unspecified
[2023-08-09] MEDS: FUROSEMIDE 40 MG/4 ML VIAL IV ONE (19:54)
[2023-08-09] MEDS: HEPARIN SODIUM/DEXTROSE 25,000 UNITS/500 ML BAG IV SCH (21:31)
[2023-08-09] MEDS: Heparin IV Adult Wt-Based Low-Dose *NO* INITIAL Bolus Protocol IV STA (23:23)
--- NOTE | 2023-08-10 00:21 | History & Physical Report ---
Date of Service August 09, 2023 Assessment & Plan (1) Acute pain of left shoulder: Plan: 78-year-old male with past medical history significant for type 2 diabetes, CKD stage II, hyperlipidemia, CAD, presents with ongoing left-sided shoulder pain radiating to left arm since last 1 month. Looks like he had a course of prednisone as outpatient. The pain is not getting better . Denies any chest pain or shortness of breath. No headaches. Has some cough. Appetite is okay. No nausea or vomiting. No abdominal pain. Normal bowel and bladder movements. He states ambulating okay. Did not get chest pain or shortness of breath while ambulating. Hemodynamically stable. In January 2022 he was admitted for seizure-like activity seen by neurology and thought to be shaking TIA syndrome and was placed on dual antiplatelet therapy for 3 weeks followed by Plavix 75 mg daily and was recommended loop recorder at that time. Acute pain of left shoulder Radiating down to left arm Going on for 1 month No chest pain or shortness of breath Abnormal EKG Troponin elevated 57 and repeat is flat at 57 Started on IV heparin which will be continued Will get a CT chest rule out any pericarditis Follow serial enzymes and echo Cardiology consult in a.m. for further recommendations Possible aspiration versus atypical pneumonia on the CT scan Will with Zosyn and doxycycline needs follow-up CT scan Underlying pulmonary nodules. Possible acute on chronic systolic CHF Pulmonary edema? On CT scan Received 1 dose of IV Lasix in ER? EF 40 to 45% echo in January 2022 Follow echo Await cardio input Will monitor History of CAD On Plavix, statin and beta-brenda Hypertension On Coreg, lisinopril Will monitor Diabetes Hold metformin Sliding scale Follow HbA1c Will monitor Tobacco abuse Trying to cut down Has wheezing on exam Continue home inhalers Nebs as needed Will monitor DVT prophylaxis On IV heparin Disposition Telemetry Full code History of Present Illness Chief Complaint: Left shoulder pain Primary Care Provider: Monique Riley PA-C 78-year-old male with past medical history significant for type 2 diabetes, CKD stage II, hyperlipidemia, CAD, presents with ongoing left-sided shoulder pain radiating to left arm since last 1 month. Looks like he had a course of prednisone as outpatient. The pain is not getting better . Denies any chest pain or shortness of breath. No headaches. Has some cough. Appetite is okay. No nausea or vomiting. No abdominal pain. Normal bowel and bladder movements. He states ambulating okay. Did not get chest pain or shortness of breath while ambulating. Hemodynamically stable. In January 2022 he was admitted for seizure-like activity seen by neurology and thought to be shaking TIA syndrome and was placed on dual antiplatelet therapy for 3 weeks followed by Plavix 75 mg daily and was recommended loop recorder at that time. Past medical history. As mentioned above Past surgical history cardiac stent. Neck fusion surgery. Social history. Currently smoking 1 pack every week with same trying to quit. Drinks alcohol. No drug use Family history. Brother has aneurysm. Son has aneurysm. Aunt had cancer. Uncle had cancer Allergies Allergy/AdvReac Type Severity Reaction Status Date / Time bee venom protein (honey bee) Allergy Severe Anaphylaxis--carries Verified 08/09/23 21:10 an Epipen Home Medications Medication Instructions Recorded Confirmed Type alendronate 70 mg tablet 70 mg PO WK 01/14/22 08/09/23 History atorvastatin 40 mg tablet 40 mg PO DAILY 01/14/22 08/09/23 History carvedilol 6.25 mg tablet 6.25 mg PO BID 01/14/22 08/09/23 History gabapentin 800 mg tablet 800 mg PO TID 01/14/22 08/09/23 History lisinopril 10 mg tablet 10 mg PO DAILY 01/14/22 08/09/23 History albuterol sulfate 90 mcg/actuation 2 puff inhalation Q6H PRN 01/17/22 08/09/23 Rx aerosol inhaler (Ventolin HFA) shortness of breath or wheezing #6.7 grams blood sugar diagnostic #100 ea 01/17/22 Rx blood-glucose meter (OneTouch #1 ea 01/17/22 Rx Verio Meter) clopidogrel 75 mg tablet 75 mg PO QAM #30 tabs 01/17/22 08/09/23 Rx fluticasone furoate 100 1 inh inhalation DAILY #60 ea 01/17/22 08/09/23 Rx mcg-vilanterol 25 mcg/dose inhalation powder (Breo Ellipta) lancets #200 ea 01/17/22 Rx metformin 500 mg tablet,extended 500 mg PO DAILY #30 tabs 01/17/22 08/09/23 Rx release 24 hr diclofenac sodium 75 mg 75 mg PO BID 08/09/23 08/09/23 History tablet,delayed release epinephrine 0.3 mg/0.3 mL 0.3 mg IM DIRECTED PRN Allergic 08/09/23 08/09/23 History injection, auto-injector (EpiPen) Reaction ipratropium bromide 17 2 puff inhalation QID PRN 08/09/23 08/09/23 History mcg/actuation HFA aerosol inhaler NEEDED PER PT Past Med/Surg History Medical History Chronic pain CAD (coronary artery disease) Tobacco use CKD (chronic kidney disease), stage II Diabetes mellitus, type II High cholesterol Hypertension Surgical History H/O cervical spine surgery Family History Other Aneurysm Cancer Social History Smoking Status: Current some day smoker Tobacco Type: Cigarettes Cigarettes Per Day: 10; Second Hand Exposure: No; Do You Dip or Chew Tobacco: No; Tobacco Cessation Education Requested by Patient: No Hx Alcohol Use: Yes Alcohol type: beer Hx Substance Use: No Preferred Language: Ukrainian Communication Ability: Effective Wireless Consultant Required: No Beliefs That Will Affect Care: None marital status: Current Living Situation: Alone Current Living Situation Comment: lives with his granddaughter Other Information That Helps Us Care for You: No Feels Safe at Home: Yes Safety Concerns: Feels Safe At This Time Assistive Devices: Denture - Upper, Denture - Lower and Glasses Review of Systems Review of Systems: All systems reviewed & are unremarkable except as noted in HPI & below Physical Exam Physical Exam: General- Not in distress Head- atraumatic Eyes- PERRL. ENT- oropharynx clear Neck- supple, no JVD. Lungs- clear to auscultation mild b/l rhonchi and wheezing Heart- regular rate and rhythm; no murmur, no gallop. Abdomen- normal bowel sounds, soft, nontender, no distension Extremities- no pretibial edema, no erythema seen Neuro- alert, oriented PERRL, EOMI; no facial palsy; no dysarthria; moves extremities Results & Data Results & Data Vital Signs (Past 12 Hours) Vital Signs Temp Pulse Pulse Resp BP BP Pulse Ox 08/09/23 23:39 81 08/09/23 22:26 76 20 143/88 H 91 08/09/23 21:37 97 H 20 154/90 H 92 08/09/23 19:40 93 H 18 149/96 H 92 08/09/23 19:36 98 H 08/09/23 17:59 36.6 C 103 H 18 163/104 H 93 O2 Del Method 08/09/23 23:39 08/09/23 22:26 Room Air 08/09/23 21:37 Room Air 08/09/23 19:40 Room Air 08/09/23 19:36 08/09/23 17:59 Diagnostic Findings Laboratory Results WBC 5.67 K/ul (4.8-10.8) 08/09/23 18:38 RBC 4.20 M/uL (4.70-6.10) L 08/09/23 18:38 Hgb 13.2 g/dl (14.0-18.0) L 08/09/23 18:38 Hct 40.3 % (42.0-52.0) L 08/09/23 18:38 MCV 96.0 fL (80.0-100.0) 08/09/23 18:38 MCH 31.4 pg (25.0-34.0) 08/09/23 18:38 MCHC 32.8 g/dL (32.0-36.0) 08/09/23 18:38 RDW Std Deviation 48.4 fL (36.4-46.3) H 08/09/23 18:38 RDW Coeff of Marika 13.8 % (11.5-14.5) 08/09/23 18:38 Plt Count 209 K/uL (130-400) 08/09/23 18:38 MPV 11.2 fL (9.4-12.4) 08/09/23 18:38 Immature Gran % (Auto) 0.2 % 08/09/23 18:38 Neut % (Auto) 78.4 % 08/09/23 18:38 Lymph % (Auto) 11.3 % 08/09/23 18:38 [place] % (Auto) 8.3 % 08/09/23 18:38 Eos % (Auto) 1.4 % 08/09/23 18:38 Baso % (Auto) 0.4 % 08/09/23 18:38 Neut # (Auto) 4.45 K/uL (1.40-6.50) 08/09/23 18:38 Lymph # (Auto) 0.64 K/uL (1.20-3.40) L 08/09/23 18:38 [place] # (Auto) 0.47 K/uL (0.11-0.59) 08/09/23 18:38 Eos # (Auto) 0.08 K/uL (0.00-0.50) 08/09/23 18:38 Baso # (Auto) 0.02 K/uL (0.00-0.20) 08/09/23 18:38 Immature Gran # (Auto) 0.01 K/uL (0.01-0.20) 08/09/23 18:38 APTT Cancelled 08/09/23 18:38 PTT Ratio Cancelled 08/09/23 18:38 Sodium 137 mmol/L (136-145) 08/09/23 18:38 Potassium 4.8 mmol/L (3.5-5.1) 08/09/23 18:38 Chloride 106 mmol/L (98-107) 08/09/23 18:38 Carbon Dioxide 26 mmol/L (21-32) 08/09/23 18:38 Anion Gap 5 (3-11) 08/09/23 18:38 BUN 20 mg/dl (6-23) 08/09/23 18:38 Creatinine 0.99 mg/dl (0.6-1.4) 08/09/23 18:38 Est Cr Clr Drug Dosing 58.4 ml/min 08/09/23 18:38 Est GFR ( Amer) 84.8 ml/min 08/09/23 18:38 Est GFR (Non-Af Amer) 73.2 ml/min 08/09/23 18:38 BUN/Creatinine Ratio 20.2 (10-20) H 08/09/23 18:38 Glucose 157 mg/dl (70-99(Fasting)) H 08/09/23 18:38 Calcium 8.8 mg/dl (8.6-10.3) 08/09/23 18:38 Total Bilirubin 0.5 mg/dl (0.2-1.0) 08/09/23 18:38 AST 15 U/L (13-39) 08/09/23 18:38 ALT 15 U/L (7-52) 08/09/23 18:38 Alkaline Phosphatase 63 U/L (34-104) 08/09/23 18:38 Troponin I High Sens 57.2 pg/ml (0-20) H* 08/09/23 19:36 Total Protein 6.7 gm/dl (6.0-8.3) 08/09/23 18:38 Albumin 3.9 gm/dl (3.4-5.0) 08/09/23 18:38 Globulin 2.8 gm/dl (2.5-4.0) 08/09/23 18:38 Albumin/Globulin Ratio 1.4 (0.9-2) 08/09/23 18:38 SARS-CoV-2 (PCR) NEGATIVE (Negative) 08/09/23 18:38 Influenza Type A (PCR) Negative (Neg) 08/09/23 18:38 Influenza Type B (PCR) Negative (Neg) 08/09/23 18:38 RSV (RT-PCR) Negative (Neg) 08/09/23 18:38 Impressions Chest X-Ray 08/09/23 18:31 XR chest 1V not portable HISTORY: 78 years-old Male left shoulder pain acute chest left shoulder pain COMPARISON: 01/14/2022 TECHNIQUE: PA view of the chest FINDINGS: Cardiac silhouette is enlarged. Pulmonary vascular congestion with nonspecific interstitial coarsening. There are chronic nodular foci/hematoma within the lungs are intact. IMPRESSION: Cardiomegaly with pulmonary vascular congestion and mild nonspecific interstitial coarsening suggestive of pulmonary edema. An interstitial pneumonia could appear similarly. ACT 112: Negative or not required by law. The above report was generated using voice recognition software. It may contain grammatical, syntax or spelling errors. Electronically signed by: Rajinder Cortez M.D. 08/09/2023 7:02 PM Shoulder X-Ray 08/09/23 18:31 XR shoulder LT min 2V routine HISTORY: 78 years-old Male left shoulder pain . Left shoulder pain without reported trauma COMPARISON: None TECHNIQUE: 3 views of the left shoulder FINDINGS: Demineralized appearance of the bones. Severe glenohumeral and AC joint osteoarthritis. Mild lateral soft tissue swelling. No acute fracture, dislocation or opaque foreign body. IMPRESSION: Severe osteoarthritis without acute fracture or dislocation. ACT 112: Negative or not required by law. The above report was generated using voice recognition software. It may contain grammatical, syntax or spelling errors. Electronically signed by: Rajinder Cortez M.D. 08/09/2023 7:08 PM ECG Additional Comments: ECG. Normal sinus rhythm rate of 96. Possible left atrial enlargement. Left ventricle hypertrophy. No ST elevations in leads V3 and V4 more prominent than prior EKG Code Status & VTE Plan VTE Prophylaxis Plan VTE Prophylaxis will be ordered: Yes
--- NOTE | 2023-08-10 00:47 | CT Scan Report ---
Exam(s): CT CHEST Without Contrast EXAM: CT Chest Without Intravenous Contrast CLINICAL HISTORY: Pericarditis TECHNIQUE: Axial computed tomography images of the chest without intravenous contrast. CTDI is 8.46 mGy and DLP is 341.67 mGy-cm. Automated exposure control was utilized for the study. A dose lowering technique was utilized adhering to the principles of ALARA. COMPARISON: Chest radiograph 08/09/2023 FINDINGS: Lungs: Interseptal thickening is concerning for pulmonary edema. Bibasilar airspace opacities are concerning for atypical infection and/or aspiration. Emphysema. Pleural space: Small bilateral pleural effusions. A calcified right pleural plaque is present. No pneumothorax. Heart: There is no significant pericardial effusion. No cardiomegaly. No significant coronary artery calcifications. Bones/joints: There are degenerative changes of the spine. No acute fracture. No dislocation. Soft tissues: Unremarkable. Vasculature: Mild atherosclerotic disease. No thoracic aortic aneurysm. Lymph nodes: Unremarkable. No enlarged lymph nodes. IMPRESSION: 1. There is no significant pericardial effusion. 2. Bibasilar airspace opacities are concerning for atypical infection and/or aspiration. Recommend follow-up repeat CT of the chest when the acute process resolved as underlying pulmonary nodules are suspected. 3. Interseptal thickening is concerning for pulmonary edema. 4. Small bilateral pleural effusions. 5. Emphysema. 6. A calcified right pleural plaque is present. This is concerning for asbestosis related lung disease. Electronically signed by: Margarita Peter MD 08/10/23 00:46 AM
[2023-08-10 04:05] LABS: ANTI-Xa, UFH(UnfractionatedHep 0.17 IU/ml (0.3-0.7)
[2023-08-10] MEDS ORDERED: NITROGLYCERIN SL 0.4 MG/TAB TAB SL PRN (04:09)
[2023-08-10] MEDS ORDERED: GLUCOSE 40% GEL 15 GM TUBE PO PRN (04:09)
[2023-08-10] MEDS ORDERED: GLUCAGON FOR INJ 1 MG VIAL SQ PRN (04:09)
[2023-08-10] MEDS ORDERED: MoRPHine SULFATE 2 MG/ML CARP IV PRN (04:09)
[2023-08-10] MEDS ORDERED: ALBUTEROL HFA 8 GM INHALER INH PRN (04:09)
[2023-08-10] MEDS ORDERED: DEXTROSE 50% 50 ML SYRINGE IV PRN (04:09)
[2023-08-10] MEDS ORDERED: IPRATROPIUM BROMIDE HFA INHALER INH PRN (04:09)
[2023-08-10] MEDS ORDERED: GLUCOSE 10 TAB/TUBE PO PRN (04:09)
[2023-08-10] MEDS ORDERED: CARBOHYDRATES FOR HYPOGLYCEMIA PO PRN (04:09)
[2023-08-10] MEDS ORDERED: ACETAMINOPHEN 325 MG TAB PO PRN (04:09)
[2023-08-10] MEDS: HEPARIN SOD (PORCINE) 1000 UNIT/ML IV ONE (04:40)
[2023-08-10 06:05] LABS: Basophils # (auto) 0.02 K/uL (0.00-0.20); Basophils % (auto) 0.4 %; Eosinophils # (auto) 0.12 K/uL (0.00-0.50); Eosinophils % (auto) 2.4 %; Hemoglobin 12.3 g/dl (14.0-18.0); Immature Granulocytes # (auto) 0.01 K/uL (0.01-0.20); Immature Granulocytes % (auto) 0.2 %; Lymphocytes # (auto) 0.79 K/uL (1.20-3.40); Lymphocytes % (auto) 15.6 %; Mean Corpuscular Hemoglobin 31.1 pg (25.0-34.0); Mean Corpuscular Hgb Conc 33.2 g/dL (32.0-36.0); Mean Corpuscular Volume 93.7 fL (80.0-100.0); Mean Platelet Volume 11.3 fL (9.4-12.4); Monocytes # (auto) 0.56 K/uL (0.11-0.59); Monocytes % (auto) 11.1 %; Neutrophils # (auto) 3.56 K/uL (1.40-6.50); Neutrophils % (auto) 70.3 %; Platelet Count 209 K/uL (130-400); RDW Coefficient of Variation 13.7 % (11.5-14.5); RDW Standard Deviation 46.8 fL (36.4-46.3); Red Blood Count 3.95 M/uL (4.70-6.10); White Blood Count 5.06 K/ul (4.8-10.8)
[2023-08-10 06:21] LABS: BUN Creatinine Ratio 19.6 (10-20); Calcium 8.4 mg/dl (8.6-10.3); Creatinine Clr Calc Pharmacy 62.3 ml/min; Est GFR (African American) 92.7 ml/min; Est GFR (Non-African American) 79.9 ml/min; Magnesium 1.8 mg/dl (1.7-2.4); Potassium 3.8 mmol/L (3.5-5.1)
[2023-08-10 06:27] LABS: Troponin I High Sensitivity 62.3 pg/ml (0-20)
[2023-08-10] MEDS: INSULIN ASPART PER UNIT CHARGE SC SCH ×2 (06:53→12:38)
--- OUTSIDE RECORDS SUMMARY | 2023-08-10 07:12 | External Medical Summary | Summary of Care ---
Author Name Unknown Organization [facility] Address [address] [place] [address] Phone [phone] Care Team Providers Care Track Grinder Name Role Phone Evelina Kingsley MD Primary Care Provide r Reason for Visit * Reason Onset Date Comments Medication Pre-auth 07/13/2023 PREDNISONE Encounter Details Date Type Department Care Team (Late st Contact Info) Description 07/13/2023 Telephone Family Medicine [address] [phone] Evelina Kingsley MD [address] [place] [address] [place] [id number] Medication Pre-auth (PREDNISONE) Allergies Active Allergy Reactions Criticality Noted Date Comments Bee Venom Edema face/lips/tongue High 11/24/2022 Lip swelling in 10/27 documented as of this encounter (statuses as of 07/13/2023) Medications Medication Sig Dispensed Refills Start Date End Date Status ASPIRIN 81 MG PO TABS one tab by mouth daily 34 5 07/31/2005 Active Ventolin HFA 108 (90 Base) MCG/ACT Inhalation Aerosol Solution Inhale by mouth 2 Puffs every 4 hours as needed for Wheezing. 0 01/26/2022 Active Ipratropium [place] HFA 17 MCG/ACT Inhalation Aerosol Solution (Atrovent HFA)Indications:Whe ezing Inhale 2 Puffs by mouth in the morning and 2 Puffs at noon and 2 Puffs in the evening and 2 Puffs before bedtime. 12.9 g 5 09/03/2022 Active Alendronate Sodium 70 MG Oral Tablet (Fosamax)Indication s:Osteoporosis without current pathological fracture, unspecified osteoporosis type Take 1 Tablet by mouth once a week. with 8 oz. water 30 minutes before first meal of the day. Remain upright for 30 min after taking tablet. 15 Tablet 3 09/03/2022 Active EpiPen 2-Marvin 0.3 MG/0.3ML Injection Solution Auto-injectorIndica tions:Lip swelling For a severe reaction: Place orange end against the outer thigh, press firmly, hold in place for 10 seconds and go to the Emergency room. 1 Each 2 11/24/2022 Active Gabapentin 800 MG Oral Tablet (Neurontin)Indicati ons:S/P cervical spinal fusion TAKE 1 TABLET BY MOUTH THREE TIMES DAILY (MORNING, NOON AND BEDTIME) 270 Tablet 1 02/03/2023 Active Carvedilol 6.25 MG Oral Tablet (Coreg)Indications: Atherosclerosis of [place] coronary artery of [place] heart without angina pectoris,CKD (chronic kidney disease), stage II TAKE 1 TABLET BY MOUTH TWICE DAILY WITH FOOD (MORNING AND BEFORE BEDTIME) 180 Tablet 1 03/05/2023 Active Lisinopril 10 MG Oral Tablet (Prinivil)Indicatio ns:Atherosclerosis of [place] coronary artery of [place] heart without angina pectoris TAKE 1 TABLET BY MOUTH IN THE MORNING 90 Tablet 1 04/28/2023 Active Atorvastatin Calcium 40 MG Oral Tablet (Lipitor)Indication s:Dyslipidemia, goal LDL below 100,Atherosclerosis of [place] coronary artery of [place] heart without angina pectoris TAKE 1 TABLET BY MOUTH ONCE DAILY AT BEDTIME 90 Tablet 2 05/01/2023 Active Clopidogrel Bisulfate 75 MG Oral Tablet (pLAVix)Indications :TIA (transient ischemic attack) TAKE 1 TABLET BY MOUTH IN THE MORNING 90 Tablet 0 06/17/2023 Active Diclofenac Sodium 75 MG Oral Tablet Delayed Release (Voltaren)Indicatio ns:Age-related osteoporosis without current pathological fracture,S/P cervical spinal fusion TAKE 1 TABLET BY MOUTH TWICE DAILY WITH FOOD (MORNING AND BEDTIME) 180 Tablet 1 06/19/2023 Active metFORMIN HCl ER 500 MG Oral Tablet Extended Release 24 Hour (Glucophage XR)Indications:Type 2 diabetes mellitus with hemoglobin A1c goal of less than 7.0% (HCC) TAKE 1 TABLET BY MOUTH IN THE MORNING 90 Tablet 1 06/19/2023 Active Fluticasone Furoate-Vilanterol 100-25 MCG/ACT Inhalation Aerosol Powder Breath Activated (BREO ellipta)Indications :Wheezing Inhale 1 Puff by mouth in the morning. 30 Each 5 07/13/2023 Active predniSONE 20 MG Oral Tablet (Deltasone)Indicati ons:Upper back pain Take 2 Tablets by mouth in the morning for 5 days. 10 Tablet 0 07/13/2023 07/18/2023 Active documented as of this encounter (statuses as of 07/13/2023) Active Problems Problem Noted Date Diagnosed Date Type 2 diabetes mellitus wit h stage 2 chronic kidney disease, without long-term current use of insulin 11/24/2022 Type 2 diabetes mellitus wit h hemoglobin A1c goal of less than 7.0% 06/04/2022 Overview: A1c 6.5 CKD (chronic kidney disease), stage II Overview: EGFR 64.4 Cortical age-related cataract of both eyes 10/21 Dyslipidemia, goal LDL below 100 05/16/2009 Overview: Per Lipid Taxonomy. ADVANCE DIRECTIVE INFORMATION 07/31/2005 Overview: No, Advance Directive brochure given to patient. Atherosclerosis of [place] co ronary artery of [place] heart without angina pectoris Age-related osteoporosis wit hout current pathological fracture S/P cervical spinal fusion History of acute anterolateral wall MS documented as of this encounter (statuses as of 07/13/2023) Resolved Problems Problem Noted Date Diagnosed Date Resolved Date Hyperglycemia 01/13/2016 09/03/2022 Overview: glucose 153 Adjustment disorder with depressed mood 05/05/2012 05/03/2019 Cervicalgia 10/22/2011 01/02/2014 Open fracture of cervical vertebra 09/16/2009 01/02/2014 FX CERVICAL VERT NOS-CL 10/29/200312/06 Dyslipidemia, goal to be determined 03/20/2002 05/16/2009 Overview: Per Lipid Taxonomy. Type 2 diabetes mellitus wit h hemoglobin A1c goal of less than 7.0% 04/22/2001 03/18/2009 Overview: ICD-10 update of inactive term Closed fracture of cervical vertebra, unspecified level without mention of spinal cord injury 02/28/2015 documented as of this encounter (statuses as of 07/13/2023) Immunizations Name Administration Dates Next Due Pneumococcal Conjugate Vacc, 13 Valent (Prevnar) 07/06/2014 Pneumococcal Polysaccharide PPV23 (Pneumovax) 01/13/2016,03/26/2006 Season Influenza, Quad, PF, Adjuvanted, 65+ Yrs, IM (FLUAD) 02/13/2020 Seasonal Influenza, PF, 6 M & above, IM , (FluLaval or Fluzone) 05/03/2019 Seasonal Influenza, Quadriva lent Hd, 65+ Yrs 02/13/2020 Seasonal Influenza, Quadriva lent, No Preserve, IM 03/14/2018 Seasonal Influenza, Split, I IV3, With Preserve, Inj 06/26/2013,05/05/2012,03/19/2010,03/18,03/26/2006 TDAP (age 11 and older)(Adacel) 01/02/2008 Zoster Vaccine Recombinant (Shingrix) 07/31/2020 ,02/13/2020 documented as of this encounter Social History Tobacco Use Types Packs/Day Years Used Date Smoking Tobacco: Every Day Cigarettes Last attempted to quit: 06/06/2000 Smokeless Tobacco: Never Comments:quit 1999 Alcohol Use Standard Drinks/Week Comments Yes 0 (1 standard drink = 0.6 oz pur e alcohol) PHQ-2 Answer Date Recorded PHQ-2 Score -1 02/25/2020 Sex and Gender Information Value Date Recorded Sex Assigned at Not on file Gender Identity Not on file Sexual Orientation Not on file Job Start Date Occupation Industry Not on file Not on file Not on file documented as of this encounter Miscellaneous Notes * Telephone Encounter - Harshad Carlton CPhT - 07/13/2023 1:33 PM EST Patients insurance would like to inform the office that PREDNISONE 20 MG TABLET is not requiring review because No prior auth needed at this time. Thank you, Lawrence Carlton ([facility]) Pulmonary Physical Therapist III [facility] ([facility]) 07/13/2023, 1:35 PM documented in this encounter Plan of Treatment Upcoming Encounters Date Type Department Care Team (Late st Contact Info) Description 09/24/2023 9:40 AM EDT Office Visit Family Medicine [address] [place] [phone] Evelina Kingsley MD [address] [place] [address] [place] [address] Health Maintenance Due Date Last Done Comments DISCUSS TOBACCO CESSATION (REFER TO SMARTSET #9223) 1945 COVID-19 Vaccine (#1) 1945 VITAMIN D LEVEL ONCE IN A LIFETIME-USE SMARTSET# [id number] 1986 Hepatitis B (1 of 3 - Risk 3-dose series) 2006 DTaP,Tdap,and Td Vaccines (2 - Td or Tdap) 01/01/2018 01/02/2008 DXA Scan 12/06/2019 12/05/2018, 09/19/2009 Depression Screening 01/03/2021 01/04/2020 Influenza Vaccine (FLU shot) (#1) 2023 02/13/2020, 02/13/2020, 05/03/2019, Additional history exists HbA1c 03/06/2023 09/03/2022, 05/08, 11/18/2020, Additional history exists Albumin/Creatinine Ratio 06/04/2023 022, 01/02/2008, 03/26/2006, Additional history exists GFR 06/04/2023 06/04/2022, 11/05, 01/04/2020, Additional history exists Diabetic Eye Exam 09/04/2023 09/03/2022, (Done elsewhere), 10/03/2007, Additional history exists Diabetic Foot Exam 09/04/2023 09/03/2022, 0 11/12/2008, 08/23/2007 Pneumococcal Vaccine: 65+ Years Completed 01/13/2016, 07/06/2014, 03/26/2006 Zoster Vaccines Completed 07/31/2020, 02/13/2020 GARDASIL-HPV IMMUNIZATION SERIES Aged Out No longer eligible based on patient's age to complete this topic MENINGOCOCCAL (MENACTRA/MENVEO) Aged Out No longer eligible based on patient's age to complete this topic documented as of this encounter Medical Devices Not on filedocumented as of this encounter Care Teams Track Grinder Relationship Specialty Start Date End Date Evelina Kingsley MD [address] [place] [address] [place] [address] PCP - General Family Medicine 07/13/23 documented as of this encounter
--- OUTSIDE RECORDS SUMMARY | 2023-08-10 07:12 | External Medical Summary | Summary of Care ---
Author Name Unknown Organization [facility] Address [address] [place] [address] Phone [phone] Care Team Providers Care Shirt Operator Name Role Phone Evelina Kingsley MD Primary Care Provide r Reason for Visit * Reason Comments eRx-Medication Refill Encounter Details Date Type Department Care Team (Late st Contact Info) Description 06/16/2023 Refill Family Medicine [address] [phone] Darius Moss MD [address] [place] [address] [place] [phone] TIA (transient ischemic attack) Allergies Active Allergy Reactions Criticality Noted Date Comments Bee Venom Edema face/lips/tongue High 11/24/2022 Lip swelling in 10/27 documented as of this encounter (statuses as of 07/14/2023) Medications Medication Sig Dispensed Refills Start Date End Date Status ASPIRIN 81 MG PO TABS one tab by mouth daily 34 5 6 Active Ventolin HFA 108 (90 Base) MCG/ACT Inhalation Aerosol Solution Inhale by mouth 2 Puffs every 4 hours as needed for Wheezing. 0 2 Active Ipratropium [place] HFA 17 MCG/ACT Inhalation Aerosol Solution (Atrovent HFA)Indications:W heezing Inhale 2 Puffs by mouth in the morning and 2 Puffs at noon and 2 Puffs in the evening and 2 Puffs before bedtime. 12.9 g 5 3 Active Alendronate Sodium 70 MG Oral Tablet (Fosamax)Indicati ons:Osteoporosis without current pathological fracture, unspecified osteoporosis type Take 1 Tablet by mouth once a week. with 8 oz. water 30 minutes before first meal of the day. Remain upright for 30 min after taking tablet. 15 Tablet 3 3 Active EpiPen 2-Marvin 0.3 MG/0.3ML Injection Solution Auto-injectorIndi cations:Lip swelling For a severe reaction: Place orange end against the outer thigh, press firmly, hold in place for 10 seconds and go to the Emergency room. 1 Each 2 3 Active Gabapentin 800 MG Oral Tablet (Neurontin)Indica tions:S/P cervical spinal fusion TAKE 1 TABLET BY MOUTH THREE TIMES DAILY (MORNING, NOON AND BEDTIME) 270 Tablet 1 3 Active Carvedilol 6.25 MG Oral Tablet (Coreg)Indication s:Atherosclerosis of [place] coronary artery of [place] heart without angina pectoris,CKD (chronic kidney disease), stage II TAKE 1 TABLET BY MOUTH TWICE DAILY WITH FOOD (MORNING AND BEFORE BEDTIME) 180 Tablet 1 3 Active Lisinopril 10 MG Oral Tablet (Prinivil)Indicat ions:Atherosclero sis of [place] coronary artery of [place] heart without angina pectoris TAKE 1 TABLET BY MOUTH IN THE MORNING 90 Tablet 1 3 Active Atorvastatin Calcium 40 MG Oral Tablet (Lipitor)Indicati ons:Dyslipidemia, goal LDL below 100,Atheroscleros is of [place] coronary artery of [place] heart without angina pectoris TAKE 1 TABLET BY MOUTH ONCE DAILY AT BEDTIME 90 Tablet 2 3 Active Clopidogrel Bisulfate 75 MG Oral Tablet (pLAVix)Indicatio ns:TIA (transient ischemic attack) TAKE 1 TABLET BY MOUTH IN THE MORNING 90 Tablet 0 4 Active Fluticasone Furoate-Vilantero l 100-25 MCG/ACT Inhalation Aerosol Powder Breath Activated (BREO ellipta)Indicatio ns:Wheezing Inhale 1 Puff by mouth in the morning. 60 Each 5 3 07/13/19 24 Discontinued(Ref ill) Diclofenac Sodium 75 MG Oral Tablet Delayed Release (Voltaren)Indicat ions:Age-related osteoporosis without current pathological fracture,S/P cervical spinal fusion TAKE 1 TABLET BY MOUTH IN THE MORNING AND 1 AT BEDTIME WITH FOOD 180 Tablet 1 3 06/19/19 24 Discontinued Clopidogrel Bisulfate 75 MG Oral Tablet (pLAVix)Indicatio ns:TIA (transient ischemic attack) TAKE 1 TABLET BY MOUTH IN THE MORNING 90 Tablet 0 3 06/17/19 24 Discontinued metFORMIN HCl ER 500 MG Oral Tablet Extended Release 24 Hour (Glucophage XR)Indications:Ty pe 2 diabetes mellitus with hemoglobin A1c goal of less than 7.0% (HCC) TAKE 1 TABLET BY MOUTH IN THE MORNING 90 Tablet 0 3 06/19/19 24 Discontinued documented as of this encounter (statuses as of 07/14/2023) Active Problems Problem Noted Date Diagnosed Date [...] Directive brochure given to patient. Atherosclerosis of [place] co ronary artery of [place] heart without angina pectoris Age-related osteoporosis wit hout current pathological fracture S/P cervical spinal fusion History of acute anterolateral wall [place] documented as of this encounter (statuses as of 07/14/2023) Resolved Problems Problem Noted Date Diagnosed Date [...] as of this encounter (statuses as of 07/14/2023) Immunizations Name Administration Dates Next Due Pneumococcal [...] encounter Miscellaneous Notes * Telephone Encounter - Libertad Wise, brattice builder - 07/14/2023 9:15 AM EST Received message from [facility] regarding patient needing labs. Placed call to patient to advise. Left message on voicemail advising of required labs Thank you for your assistance Libertad Wise Screening Nurse II [facility] ([facility]) 07/14/2023,9:15 AM * Telephone Encounter - Juan Littlejohn [facility] - 06/17/2023 8:15 AM EST Signed Prescriptions: Disp Refills Clopidogrel Bisulfate 75 MG Oral Tablet (p*90 Tab*0 Sig: TAKE 1 TABLET BY MOUTH IN THE MORNING Authorizing Provider: DARIUS MOSS Ordering User: JUAN LITTLEJOHN * Telephone Encounter - Juan Littlejohn [facility] - 06/17/2023 8:11 AM EST Provided 90 days supply with 0 refill(s). Per refill protocol patient should have ROUTINE LABS on file within past year. Reviewed AMP report, Care Gaps/Health Maintenance, medications list, and for any routine labs typically ordered for this patient. Lab orders placed 03/19/23. Please contact patient to advise of labs ordered for blood draw AND URINE specimen (patient will have to be able to void to provide sample). Recommend patient to fast if able for labs. Patient may still have water and regular medications. Advise to obtain labs before requesting the next refill. Thanks, Juan Littlejohn PharmD Clinical Pharmacist [facility] ([facility] (formerly [facility]) [phone] 06/17/2023, 8:15 AM documented in this encounter Plan of Treatment Upcoming Encounters Date Type Department Care Team (Late st Contact Info) Description 09/24/2023 9:40 AM EDT Office Visit [address] [phone] Evelina Kingsley MD [address] [place] [address] [place] [phone] Health Maintenance Due Date Last Done Comments DISCUSS TOBACCO CESSATION (REFER TO SMARTSET #[id number]) 1945 COVID-19 Vaccine (#1) 1945 VITAMIN D LEVEL ONCE IN A LIFETIME-USE SMARTSET# [id number] 1986 Hepatitis B (1 of 3 - [...] Not on filedocumented as of this encounter Visit Diagnoses Diagnosis TIA (transient ischemic attack) Unspecified transient cerebral ischemia documented in this encounter Care Teams Shirt Operator Relationship Specialty Start Date End Date Evelina Kingsley MD [address] [place] [address] [place] [phone] PCP - General Family Medicine 07/13/23 documented as of this encounter
--- OUTSIDE RECORDS SUMMARY | 2023-08-10 07:12 | External Medical Summary | Summary of Care ---
Author Name Unknown Organization [facility] Address [address] [place] [address] Phone [phone] Care Team Providers Care Waste Examiner Name Role Phone Evelina Kingsley MD Primary Care Provide r Reason for Visit * Reason Comments eRx-Medication Refill Encounter Details Date Type Department Care Team (Late st Contact Info) Description 08/02/2023 Refill Family Medicine [address] [place] [phone] Darius Maxwell MD [address] [place] [address] [place] [phone] S/P cervical spinal fusion Allergies Active Allergy Reactions Criticality Noted Date Comments Bee Venom Edema face/lips/tongue High 11/24/2022 Lip swelling in 10/27 documented as of this encounter (statuses as of 08/03/2023) Medications Medication Sig Dispensed Refills Start Date End Date Status ASPIRIN 81 MG PO TABS one tab by mouth daily 34 5 07/31/2005 Active Ventolin HFA 108 (90 Base) MCG/ACT Inhalation Aerosol Solution Inhale by mouth 2 Puffs every 4 hours as needed for Wheezing. 0 01/26/2022 Active Ipratropium [place] HFA 17 MCG/ACT Inhalation Aerosol Solution (Atrovent HFA)Indications:Wh eezing Inhale 2 Puffs by mouth in the morning and 2 Puffs at noon and 2 Puffs in the evening and 2 Puffs before bedtime. 12.9 g 5 09/03/2022 Active Alendronate Sodium 70 MG Oral Tablet (Fosamax)Indicatio ns:Osteoporosis without current pathological fracture, unspecified osteoporosis type Take 1 Tablet by mouth once a week. with 8 oz. water 30 minutes before first meal of the day. Remain upright for 30 min after taking tablet. 15 Tablet 3 09/03/2022 Active EpiPen 2-Marvin 0.3 MG/0.3ML Injection Solution Auto-injectorIndic ations:Lip swelling For a severe reaction: Place orange end against the outer thigh, press firmly, hold in place for 10 seconds and go to the Emergency room. 1 Each 2 11/24/2022 Active Carvedilol 6.25 MG Oral Tablet (Coreg)Indications :Atherosclerosis of [place] coronary artery of [place] heart without angina pectoris,CKD (chronic kidney disease), stage II TAKE 1 TABLET BY MOUTH TWICE DAILY WITH FOOD (MORNING AND BEFORE BEDTIME) 180 Tablet 1 03/05/2023 Active Lisinopril 10 MG Oral Tablet (Prinivil)Indicati ons:Atherosclerosi s of [place] coronary artery of [place] heart without angina pectoris TAKE 1 TABLET BY MOUTH IN THE MORNING 90 Tablet 1 04/28/2023 Active Atorvastatin Calcium 40 MG Oral Tablet (Lipitor)Indicatio ns:Dyslipidemia, goal LDL below 100,Atherosclerosi s of [place] coronary artery of [place] heart without angina pectoris TAKE 1 TABLET BY MOUTH ONCE DAILY AT BEDTIME 90 Tablet 2 05/01/2023 Active Clopidogrel Bisulfate 75 MG Oral Tablet (pLAVix)Indication s:TIA (transient ischemic attack) TAKE 1 TABLET BY MOUTH IN THE MORNING 90 Tablet 0 06/17/2023 Active Diclofenac Sodium 75 MG Oral Tablet Delayed Release (Voltaren)Indicati ons:Age-related osteoporosis without current pathological fracture,S/P cervical spinal fusion TAKE 1 TABLET BY MOUTH TWICE DAILY WITH FOOD (MORNING AND BEDTIME) 180 Tablet 1 06/19/2023 Active metFORMIN HCl ER 500 MG Oral Tablet Extended Release 24 Hour (Glucophage XR)Indications:Typ e 2 diabetes mellitus with hemoglobin A1c goal of less than 7.0% ([facility]) TAKE 1 TABLET BY MOUTH IN THE MORNING 90 Tablet 1 06/19/2023 Active Fluticasone Furoate-Vilanterol 100-25 MCG/ACT Inhalation Aerosol Powder Breath Activated (BREO ellipta)Indication s:Wheezing Inhale 1 Puff by mouth in the morning. 30 Each 5 07/13/2023 Active Gabapentin 800 MG Oral Tablet (Neurontin)Indicat ions:S/P cervical spinal fusion TAKE 1 TABLET BY MOUTH THREE TIMES DAILY (MORNING, NOON, AND BEDTIME) 270 Tablet 0 08/03/2023 Active Gabapentin 800 MG Oral Tablet (Neurontin)Indicat ions:S/P cervical spinal fusion TAKE 1 TABLET BY MOUTH THREE TIMES DAILY (MORNING, NOON AND BEDTIME) 270 Tablet 1 02/03/2023 4 Discontinued documented as of this encounter (statuses as of 08/03/2023) Active Problems Problem Noted Date Diagnosed Date [...] Directive brochure given to patient. Atherosclerosis of [place] co ronary artery of [place] heart without angina pectoris Age-related osteoporosis wit hout current pathological fracture S/P cervical spinal fusion History of acute anterolateral wall [place] documented as of this encounter (statuses as of 08/03/2023) Resolved Problems Problem Noted Date Diagnosed Date [...] as of this encounter (statuses as of 08/03/2023) Immunizations Name Administration Dates Next Due Pneumococcal [...] encounter Miscellaneous Notes * Telephone Encounter - Evelina Kingsley MD - 08/03/2023 9:27 AM EST Signed Prescriptions: Disp Refills Gabapentin 800 MG Oral Tablet (Neurontin) 270 Ta*0 Sig: TAKE 1 TABLET BY MOUTH THREE TIMES DAILY (MORNING, NOON, AND BEDTIME) Authorizing Provider: EVELINA KINGSLEY * Telephone Encounter - Montserrat Steward RN - 08/03/2023 9:14 AM ESTPending Prescriptions: Disp Refills Gabapentin 800 MG Oral Tablet 270 Ta*0 Sig: TAKE 1 TABLET BY MOUTH THREE TIMES DAILY (MORNING, NOON AND BEDTIME) * Telephone Encounter - Montserrat Steward RN - 08/03/2023 9:13 AM EST Pending Prescriptions: Disp Refills Gabapentin 800 MG Oral Tablet (Neurontin)*270 Ta*0 Sig: TAKE 1 TABLET BY MOUTH THREE TIMES DAILY (MORNING, NOON, AND BEDTIME) Last Visit: 07/13/2023 (in office), Visit date not found (telemedicine) Next Visit: 09/24/2023 Last date the medication was ordered: 01/2023 Patient Active Problem List Diagnosis Code Atherosclerosis of [place] coronary artery of [place] heart without angina pectoris I25.10 Age-related osteoporosis without current pathological fracture M81.0 ADVANCE DIRECTIVE INFORMATION Dyslipidemia, goal LDL below 100 E78.5 S/P cervical spinal fusion Z98.1 History of acute anterolateral wall MD I25.2 Cortical age-related cataract of both eyes H25.013 Type 2 diabetes mellitus with hemoglobin A1c goal of less than 7.0% ([facility]) E11.9 CKD (chronic kidney disease), stage II N18.2 Type 2 diabetes mellitus with stage 2 chronic kidney disease, without long-term current use of insulin ([facility]) E11.22, N18.2 Labs: Lab Results Component Value Date/Time CREATININE - [facility] 1.1 06/04/2022 08:11 AM CREATININE - [facility] 1.1 01/04/2020 12:40 PM CREATININE, RANDOM URINE - [facility] 150 06/04/2022 08:11 AM CREATININE, RANDOM URINE - [facility] 47 01/02/2008 11:01 AM Lab Results Component Value Date/Time POTASSIUM - [facility] 4.3 06/04/2022 08:11 AM POTASSIUM - [facility] 4.7 01/04/2020 12:40 PM No results found for: "TSH" Lab Results Component Value Date/Time LDL CHOLESTEROL (CALCULATED) - [facility] 67 06/04/2022 08:11 AM LDL CHOLESTEROL (CALCULATED) - [facility] 62 01/04/2020 12:40 PM LDL CHOLESTEROL (CALCULATED) - [facility] 126 10/26/2018 02:26 PM LDL CHOLESTEROL (DIRECT MEASURE) - [facility] NOT APPLICABLE 01/04/2020 12:40 PM LDL CHOLESTEROL (DIRECT MEASURE) - [facility] NOT APPLICABLE 10/26/2018 02:26 PM LDL CHOLESTEROL (DIRECT MEASURE) - [facility] 80 11/29/2001 07:54 PM Lab Results Component Value Date/Time ALT - [facility] 22 06/04/2022 08:11 AM ALT - [facility] 19 01/04/2020 12:40 PM Hemoglobin AIC Results: Lab Results Component Value Date/Time HEMOGLOBIN A1C - [facility] 6.4 (H) 09/03/2022 09:37 AM HEMOGLOBIN A1C - [facility] 6.5 (H) 06/04/2022 08:11 AM HEMOGLOBIN A1C - [facility] 6.3 (H) 11/18/2020 12:31 PM HEMOGLOBIN A1C - [facility] 6.1 09/19/2009 01:46 PM HEMOGLOBIN A1C - [facility] 6.0 04/30/2008 04:11 PM HEMOGLOBIN A1C - [facility] 5.7 01/02/2008 11:01 AM * Telephone Encounter - Hailey Tilley - 08/02/2023 8:07 PM ESTPending Prescriptions: Disp Refills Gabapentin 800 MG Oral Tablet 270 Ta*0 Sig: TAKE 1 TABLET BY MOUTH THREE TIMES DAILY (MORNING, NOON AND BEDTIME) documented in this encounter Plan of Treatment Upcoming Encounters Date Type Department Care Team (Late st Contact Info) Description 09/24/2023 9:40 AM EDT Office Visit Family Medicine [address] [place] [phone] Evelina Kingsley MD [address] [place] [address] [place] [phone] Health Maintenance Due Date Last Done Comments DISCUSS TOBACCO CESSATION (REFER TO SMARTSET #[id number]) 1945 VITAMIN D LEVEL ONCE IN A LIFETIME-USE SMARTSET# [id number] 1986 DTaP,Tdap,and Td Vaccines (2 - Td or Tdap) 01/01/2018 01/02/2008 DXA Scan 12/06/2019 12/05/2018, 09/19/2009 Depression Screening 01/03/2021 01/04/2020 COVID-19 Vaccine ( - season) 2023 Influenza Vaccine (FLU shot) (#1) 2023 02/13/2020, [...] on patient's age to complete this topic Hepatitis B Aged Out No longer eligi ble based on patient's age to complete this topic MENINGOCOCCAL (MENACTRA/MENVEO) Aged Out No longer eligible based on patient's age to complete this topic documented as of this encounter Medical Devices Not on filedocumented as of this encounter Visit Diagnoses Diagnosis S/P cervical spinal fusion Arthrodesis status documented in this encounter Care Teams Waste Examiner Relationship Specialty Start Date End Date Evelina Kingsley MD [address] [place] [address] [place] [phone] PCP - General Family Medicine 07/13/23 documented as of this encounter
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
--- OUTSIDE RECORDS SUMMARY | 2023-08-10 07:13 | External Medical Summary | Summary of Care ---
Author Name Unknown Organization [facility] Address [address] [place] [address] Phone [phone] Care Team Providers Care Product Planner Name Role Phone Darius Maxwell MD Primary Care Provider [phone] Reason for Visit * Reason Onset Date Comments Health Maintenance 05/10/2023 Encounter Details Date Type Department Care Team (Late st Contact Info) Description 05/10/2023 Telephone Family Medicine [address] [phone] Darius Maxwell MD [address] [place] [address] [place] [address] Health Maintenance Allergies Active Allergy Reactions Criticality Noted Date Comments Bee Venom Edema face/lips/tongue High 11/24/2022 Lip swelling in 10/27 documented as of this encounter (statuses as of 05/10/2023) Medications Medication Sig Dispensed Refills Start Date End Date Status ASPIRIN 81 MG PO TABS one tab by mouth daily 34 5 07/31/2005 Active Ventolin HFA 108 (90 Base) MCG/ACT Inhalation Aerosol Solution Inhale by mouth 2 Puffs every 4 hours as needed for Wheezing. 0 01/26/2022 Active Fluticasone Furoate-Vilanterol 100-25 MCG/ACT Inhalation Aerosol Powder Breath Activated (BREO ellipta)Indications: Wheezing Inhale 1 Puff by mouth in the morning. 60 Each 5 09/03/2022 Active Ipratropium [place] HFA 17 MCG/ACT Inhalation Aerosol Solution (Atrovent HFA)Indications:Whee zing Inhale 2 Puffs by mouth in the morning and 2 Puffs at noon and 2 Puffs in the evening and 2 Puffs before bedtime. 12.9 g 5 09/03/2022 Active Alendronate Sodium 70 MG Oral Tablet (Fosamax)Indications :Osteoporosis without current pathological fracture, unspecified osteoporosis type Take 1 Tablet by mouth once a week. with 8 oz. water 30 minutes before first meal of the day. Remain upright for 30 min after taking tablet. 15 Tablet 3 09/03/2022 Active EpiPen 2-Marvin 0.3 MG/0.3ML Injection Solution Auto-injectorIndicat ions:Lip swelling For a severe reaction: Place orange end against the outer thigh, press firmly, hold in place for 10 seconds and go to the Emergency room. 1 Each 2 11/24/2022 Active Diclofenac Sodium 75 MG Oral Tablet Delayed Release (Voltaren)Indication s:Age-related osteoporosis without current pathological fracture,S/P cervical spinal fusion TAKE 1 TABLET BY MOUTH IN THE MORNING AND 1 AT BEDTIME WITH FOOD 180 Tablet 1 12/22/2022 Active Gabapentin 800 MG Oral Tablet (Neurontin)Indicatio ns:S/P cervical spinal fusion TAKE 1 TABLET BY MOUTH THREE TIMES DAILY (MORNING, NOON AND BEDTIME) 270 Tablet 1 02/03/2023 Active Carvedilol 6.25 MG Oral Tablet (Coreg)Indications:A therosclerosis of [place] coronary artery of [place] heart without angina pectoris,CKD (chronic kidney disease), stage II TAKE 1 TABLET BY MOUTH TWICE DAILY WITH FOOD (MORNING AND BEFORE BEDTIME) 180 Tablet 1 03/05/2023 Active Clopidogrel Bisulfate 75 MG Oral Tablet (pLAVix)Indications: TIA (transient ischemic attack) TAKE 1 TABLET BY MOUTH IN THE MORNING 90 Tablet 0 03/19/2023 Active metFORMIN HCl ER 500 MG Oral Tablet Extended Release 24 Hour (Glucophage XR)Indications:Type 2 diabetes mellitus with hemoglobin A1c goal of less than 7.0% (HCC) TAKE 1 TABLET BY MOUTH IN THE MORNING 90 Tablet 0 03/19/2023 Active Lisinopril 10 MG Oral Tablet (Prinivil)Indication s:Atherosclerosis of [place] coronary artery of [place] heart without angina pectoris TAKE 1 TABLET BY MOUTH IN THE MORNING 90 Tablet 1 04/28/2023 Active Atorvastatin Calcium 40 MG Oral Tablet (Lipitor)Indications :Dyslipidemia, goal LDL below 100,Atherosclerosis of [place] coronary artery of [place] heart without angina pectoris TAKE 1 TABLET BY MOUTH ONCE DAILY AT BEDTIME 90 Tablet 2 05/01/2023 Active documented as of this encounter (statuses as of 05/10/2023) Active Problems Problem Noted Date Diagnosed Date [...] Directive brochure given to patient. Atherosclerosis of [place] co ronary artery of [place] heart without angina pectoris Age-related osteoporosis wit hout current pathological fracture S/P cervical spinal fusion History of acute anterolateral wall [place] documented as of this encounter (statuses as of 05/10/2023) Resolved Problems Problem Noted Date Diagnosed Date [...] as of this encounter (statuses as of 05/10/2023) Immunizations Name Administration Dates Next Due Pneumococcal Conjugate Vacc, 13 Valent (Prevnar) 07/06/2014 Pneumococcal Polysaccharide PPV23 (Pneumovax) 01/13/2016,03/26/2006 SEASONAL INFLUENZA, PF, 6 M & Above, IM , (FLULAVAL or FLUZONE) 05/03/2019 Season Influenza, Quad, PF, Adjuvanted, 65+ Yrs, IM (FLUAD) 02/13/2020 Seasonal Influenza, Quadriva lent Hd, 65+ Yrs [...] encounter Miscellaneous Notes * Telephone Encounter - Shavonne Mir LPN - 05/10/2023 10:58 AM EST Care Gaps Comprehensive Care Outreach Last Office/Telemedicine Visit: 11/25/2022 (in office), Visit date not found (telemedicine) Next Office Visit: Visit date not found Hemoglobin AIC Results: Lab Results Component Value Date/Time HEMOGLOBIN A1C - [facility] 6.4 (H) 09/03/2022 09:37 AM HEMOGLOBIN A1C - [facility] 6.5 (H) 06/04/2022 08:11 AM HEMOGLOBIN A1C - [facility] 6.3 (H) 11/18/2020 12:31 PM HEMOGLOBIN A1C - [facility] 6.1 09/19/2009 01:46 PM HEMOGLOBIN A1C - [facility] 6.0 04/30/2008 04:11 PM HEMOGLOBIN A1C - [facility] 5.7 01/02/2008 11:01 AM Reviewed Health Maintenance below: Health Maintenance Topic Date Due DISCUSS TOBACCO CESSATION (REFER TO SMARTSET #3291) Never done COVID-19 Vaccine (1) Never done VITAMIN D LEVEL ONCE IN A LIFETIME-USE SMARTSET# [id number] Never done Hepatitis B (1 of 3 - Risk 3-dose series) Never done DTaP,Tdap,and Td Vaccines (2 - Td or Tdap) 01/01/2018 DXA Scan 12/06/2019 Depression Screening 01/03/2021 Influenza Vaccine (FLU shot) (1) 02/05/2023 HbA1c 03/06/2023 Albumin/Creatinine Ratio 06/04/2023 GFR 06/04/2023 Ov Labs already ordered Care Gap Outreach Action Taken: Left message 1 documented in this encounter Plan of Treatment Health Maintenance Due Date Last Done Comments DISCUSS TOBACCO CESSATION (REFER TO SMARTSET #3291) 1945 COVID-19 Vaccine (#1) 1945 VITAMIN D LEVEL ONCE IN A LIFETIME-USE SMARTSET# [id number] 1986 Hepatitis B (1 of 3 - [...] filedocumented as of this encounter Care Teams Product Planner Relationship Specialty Start Date End Date Darius Maxwell MD [address] [place] [address] [place] [address] PCP - General Family Medicine 10/25/18 documented as of this encounter
--- OUTSIDE RECORDS SUMMARY | 2023-08-10 07:13 | External Medical Summary | Summary of Care ---
Author Name Unknown Organization [facility] Address [address] [place] [address] Phone [phone] Care Team Providers Care Extruder Tender Name Role Phone Darius Moss MD Primary Care Provider [phone] Reason for Visit * Reason Comments eRx-Medication Refill Encounter Details Date Type Department Care Team Description 03/04/2023 Refill Family Medicine [address] [phone] Darius Moss MD [address] [place], [place] [address] [id number] Atherosclerosis of [place] coronary artery of [place] heart without angina pectoris; CKD (chronic kidney disease), stage II Allergies Active Allergy Reactions Severity Noted Date Comments Bee Venom Edema face/lips/tongue High 11/24/2022 Lip swelling in 10/27 documented as of this encounter (statuses as of 03/05/2023) Medications Medication Sig Dispensed Refills Start Date End Date Status ASPIRIN 81 MG PO TABS one tab by mouth daily 34 5 07/31/2005 Active Ventolin HFA 108 (90 Base) MCG/ACT Inhalation Aerosol Solution Inhale by mouth 2 Puffs every 4 hours as needed for Wheezing. 0 01/26/2022 Active Lisinopril 10 MG Oral Tablet (Prinivil)Indicati ons:Atherosclerosi s of [place] coronary artery of [place] heart without angina pectoris TAKE 1 TABLET BY MOUTH IN THE MORNING 90 Tablet 1 09/03/2022 Active metFORMIN HCl ER 500 MG Oral Tablet Extended Release 24 Hour (Glucophage XR)Indications:Typ e 2 diabetes mellitus with hemoglobin A1c goal of less than 7.0% ([facility]) Take 1 Tablet by mouth in the morning. 90 Tablet 1 09/03/2022 Active Clopidogrel Bisulfate 75 MG Oral Tablet (pLAVix)Indication s:TIA (transient ischemic attack) Take 1 Tablet by mouth in the morning. 90 Tablet 1 09/03/2022 Active Fluticasone Furoate-Vilanterol 100-25 MCG/ACT Inhalation Aerosol Powder Breath Activated (BREO ellipta)Indication s:Wheezing Inhale 1 Puff by mouth in the morning. 60 Each 5 09/03/2022 Active Ipratropium [place] HFA 17 MCG/ACT Inhalation Aerosol Solution (Atrovent [...] taking tablet. 15 Tablet 3 09/03/2022 Active Atorvastatin Calcium 40 MG Oral Tablet (Lipitor)Indicatio ns:Dyslipidemia, goal LDL below 100,Atherosclerosi s of [place] coronary artery of [place] heart without angina pectoris TAKE 1 TABLET BY MOUTH ONCE DAILY AT BEDTIME 90 Tablet 1 11/05/2022 Active EpiPen 2-Marvin 0.3 MG/0.3ML Injection Solution [...] 12/22/2022 Active Gabapentin 800 MG Oral Tablet (Neurontin)Indicat ions:S/P cervical spinal fusion TAKE 1 TABLET BY MOUTH THREE TIMES DAILY (MORNING, NOON AND BEDTIME) 270 Tablet 1 02/03/2023 Active Carvedilol 6.25 MG Oral Tablet (Coreg)Indications :Atherosclerosis of [place] coronary artery of [place] heart without angina pectoris,CKD (chronic kidney disease), stage II TAKE 1 TABLET BY MOUTH TWICE DAILY WITH FOOD (MORNING AND BEFORE BEDTIME) 180 Tablet 1 03/05/2023 Active Carvedilol 6.25 MG Oral Tablet (Coreg)Indications :Atherosclerosis of [place] coronary artery of [place] heart without angina pectoris,CKD (chronic kidney disease), stage II TAKE 1 TABLET BY MOUTH TWICE DAILY WITH FOOD (MORNING AND BEFORE BEDTIME) 180 Tablet 1 08/31/2022 3 Discontinued documented as of this encounter (statuses as of 03/05/2023) Active Problems Problem Noted Date Type 2 diabetes mellitus wit h stage 2 chronic kidney disease, without long-term current use of insulin 11/24/2022 Type 2 diabetes mellitus with hemoglobin A1c goal of less than 7.0% 06/04/2022 Overview: A1c 6.5 CKD (chronic kidney disease), stage II 0 11/18/2020 Overview: EGFR 64.4 Cortical age-related cataract of both ey es 10/21/2020 Dyslipidemia, goal LDL below 100 009 Overview: Per Lipid Taxonomy. ADVANCE DIRECTIVE INFORMATION 07/31/2005 Overview: No, Advance Directive brochure given to patient. Atherosclerosis of [place] co ronary artery of [place] heart without angina pectoris Age-related osteoporosis without current pathological fracture S/P cervical spinal fusion History of acute anterolateral wall [place] documented as of this encounter (statuses as of 03/05/2023) Resolved Problems Problem Noted Date Resolved Date Hyperglycemia 01/13/2016 09/03/2022 Overview: glucose 153 Adjustment disorder with depressed mood 05/05/20 12 05/03/2019 Cervicalgia 10/22/2011 01/02/2014 Open fracture of cervical vertebra 09/16/2009 01/02/2014 FX CERVICAL VERT NOS-CL 10/29/2003 01/03/20 14 Dyslipidemia, goal to be determined 03/20/2002 05/16/2009 Overview: Per Lipid Taxonomy. Type 2 diabetes mellitus wit h hemoglobin A1c goal of less than 7.0% 04/22/2001 03/18/2009 Overview: ICD-10 update of inactive term Closed fracture of cervical vertebra, unspecified level without mention of spinal cord injury 02/28/2015 documented as of this encounter (statuses as of 03/05/2023) Immunizations Name Administration Dates Next Due Pneumococcal Conjugate Vacc, 13 Valent (Prevnar) 07/06/2014 Pneumococcal Polysaccharide PPV23 (Pneumovax) 01/13/2016,03/26/2006 Season Influenza, Quad, PF, Adjuvanted, 65+ Yrs, IM (FLUAD) 02/13/2020 Seasonal Influenza, PF, 6 mo ns & Above, IM , (Flulaval) 05/03/2019 Seasonal Influenza, Quadriva lent Hd, 65+ [...] drink = 0.6 oz pur e alcohol) Sex Assigned at Date Recorded Not on file Job Start Date Occupation Industry Not on file Not on file Not on file documented as of this encounter Miscellaneous Notes * Telephone Encounter - Pura Moore [facility] - 03/05/2023 10:19 AM EDTSigned Prescriptions: Disp Refills Carvedilol 6.25 MG Oral Tablet (Coreg) 180 Ta*1 Sig: TAKE 1 TABLET BY MOUTH TWICE DAILY WITH FOOD (MORNING AND BEFORE BEDTIME)Authorizing Provider: DARIUS MOSS AOrdering User: PURA MOORE documented in this encounter Plan of Treatment Upcoming Encounters Date Type Specialty Care Team Description 03/17/2023 Office Visit Family Medicine Hans, Darius Garibay MD [address] [place] [address] Dr [place], [place] [address] Health Maintenance Due Date Last Done Comments DISCUSS TOBACCO CESSATION (REFER TO SMARTSET #1160) 1945 COVID-19 Vaccine (#1) 1945 VITAMIN D LEVEL ONCE IN A LIFETIME-USE SMARTSET# [id number] 1986 DTaP,Tdap,and Td Vaccines (2 - Td or Tdap) 01/01/2018 01/02/2008 DXA Scan 12/06/2019 12/05/2018, 09/19/2009 Depression Screening 01/03/2021 01/04/2020 Influenza Vaccine (FLU shot) (#1) 2023 02/13/2020, 02/13/2020, 05/03/2019, Additional history exists HbA1c 03/06/2023 09/03/2022, 05/08, 11/18/2020, Additional history exists Albumin/Creatinine Ratio 06/04/2023 022, 01/02/2008, 03/26/2006, Additional history exists GFR 06/04/2023 06/04/2022, 11/05, 01/04/2020, Additional history exists DIABETES-EYE EXAM 09/04/2023 09/03/2022, (Done elsewhere), 10/03/2007, Additional history [...] as of this encounter Visit Diagnoses Diagnosis Atherosclerosis of [place] coronary artery of [place] heart without angina pectoris CKD (chronic kidney disease), stage II Chronic kidney disease, Stage II (mild) documented in this encounter Care Teams Extruder Tender Relationship Specialty Start Date End Date Darius Moss MD [address] [place] [address] [place] [address] PCP - General Family Medicine 10/25/18 documented as of this encounter
--- OUTSIDE RECORDS SUMMARY | 2023-08-10 07:13 | External Medical Summary | Summary of Care ---
Author Name Unknown Organization [facility] Address [address] [place] [address] Phone [phone] Care Team Providers Care Care Clinician Name Role Phone Darius Moss MD Primary Care Provider [phone] Reason for Visit * Reason Comments eRx-Medication Refill Encounter Details Date Type Department Care Team Description 03/18/2023 Refill Family Medicine [address] [address] Darius Moss MD [address] [place] [address] [place] [phone] Encounter for long-term (current) use of other medications*; TIA (transient ischemic attack); Type 2 diabetes mellitus with hemoglobin A1c goal of less than 7.0% ([facility]) Allergies Active Allergy Reactions Severity Noted Date Comments Bee Venom Edema face/lips/tongue High 11/24/2022 Lip swelling in 10/27 documented as of this encounter (statuses as of 03/19/2023) Medications Medication Sig Dispensed Refills Start Date End Date Status ASPIRIN 81 MG PO TABS one tab by mouth daily 34 5 07/31/2005 Active Ventolin HFA 108 (90 Base) MCG/ACT Inhalation Aerosol Solution Inhale by mouth 2 Puffs every 4 hours as needed for Wheezing. 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 90 Tablet 1 09/03/2022 3 Discontinued Clopidogrel Bisulfate 75 MG Oral Tablet (pLAVix)Indication s:TIA (transient ischemic attack) Take 1 Tablet by mouth in the morning. 90 Tablet 1 09/03/2022 3 Discontinued documented as of this encounter (statuses as of 03/19/2023) Active Problems Problem Noted Date Type 2 [...] Directive brochure given to patient. Atherosclerosis of [place] co ronary artery of [place] heart without angina pectoris Age-related osteoporosis without current pathological fracture S/P cervical spinal fusion History of acute anterolateral wall [place] documented as of this encounter (statuses as of 03/19/2023) Resolved Problems Problem Noted Date Resolved Date [...] as of this encounter (statuses as of 03/19/2023) Immunizations Name Administration Dates Next Due Pneumococcal [...] encounter Miscellaneous Notes * Telephone Encounter - Roberth Mcgill, [facility] - 03/19/2023 12:48 PM EDTSigned Prescriptions: Disp Refills Clopidogrel Bisulfate 75 MG Oral Tablet (p*90 Tab*0 Sig: TAKE 1 TABLET BY MOUTH IN THE MORNINGAuthorizing Provider: DARIUS MOSS User: ROBERTH MCGILL metFORMIN HCl ER 500 MG Oral Tablet Extend*90 Tab*0 Sig: TAKE 1 TABLET BY MOUTH IN THE MORNINGAuthorizing Provider: DARIUS MOSS User: RUTHANN MCGILLEW * Telephone Encounter - Roberth Mcgill RPh - 03/19/2023 12:42 PM EDT Provided 90 days supply with 0 refill(s) until next routine labs will approximately be drawn. Per refill protocol patient should have HCT and PLT on file within past year. Reviewed AMP report, Care Gaps/Health Maintenance, medications list, and for any routine labs typically ordered for this patient. Lab orders placed along with other labs which will be due within the next 3 months. Patient can complete labs with next routine lab work. Thanks, Roberth Mcgill Rph, Pharm D. Clinical Pharmacist Centralized Clinical Pharmacy Services (Formerly Telepharmacy)/[facility] [phone] 03/19/2023,12:46 PM documented in this encounter Plan of Treatment Scheduled Orders Name Type Priority Associated Diagnoses Orde r Schedule CBC Lab Routine Encounter for long-term (current) use of other medications Expected: 04/19/2023 (Approximate), Expires: 03/19/2024 VITAMIN B12 Lab Routine Encounter for long-term (current) use of other medications Expected: 04/19/2023 (Approximate), Expires: 03/19/2024 LIPID PANEL WITH DIRECT LDL IF TG IS HIGH Lab Routine Encounter for long-term (current) use of other medications Expected: 04/19/2023 (Approximate), Expires: 03/19/2024 COMPREHENSIVE METABOLIC PANEL Lab Routine Encounter for long-term (current) use of other medications Expected: 04/19/2023 (Approximate), Expires: 03/19/2024 HEMOGLOBIN A1C Lab Routine Encounter for long-term (current) use of other medications Expected: 04/19/2023, Expires: 03/19/2024 ALBUMIN / CREATININE RATIO, URINE Lab Routine Encounter for long-term (current) use of other medications Expected: 04/19/2023, Expires: 03/19/2024 Health Maintenance Due Date Last Done Comments DISCUSS TOBACCO CESSATION (REFER TO SMARTSET #0104) 1945 COVID-19 Vaccine (#1) 1945 VITAMIN D LEVEL ONCE IN A LIFETIME-USE SMARTSET# [id number] 1986 DTaP,Tdap,and Td Vaccines (2 - Td [...] as of this encounter Visit Diagnoses Diagnosis Encounter for long-term (current) use of other medications- Primary TIA (transient ischemic attack) Unspecified transient cerebral ischemia Type 2 diabetes mellitus with hemoglobin A1c goal of less than 7.0% ([facility]) documented in this encounter Care Teams Care Clinician Relationship Specialty Start Date End Date Darius Moss MD [address] [place] [address] [place] [phone] PCP - General Family Medicine 10/25/18 documented as of this encounter
--- OUTSIDE RECORDS SUMMARY | 2023-08-10 07:13 | External Medical Summary | Summary of Care ---
Author Name Unknown Organization [facility] Address [address] [place] [address] Phone [phone] Care Team Providers Care Office Professional Name Role Phone Darius Moss MD Primary Care Provider Reason for Visit * Reason Comments eRx-Medication Refill Encounter Details Date Type Department Care Team (Late st Contact Info) Description 06/18/2023 Refill Family Medicine [address] [place] [address] Darius Moss MD [address] [place] [address] [place] [phone] Encounter for long-term (current) use of other medications*; Age-related osteoporosis without current pathological fracture; S/P cervical spinal fusion; Type 2 diabetes mellitus with hemoglobin A1c goal of less than 7.0% ([facility]) Allergies Active Allergy Reactions Criticality Noted Date Comments Bee Venom Edema face/lips/tongue High 11/24/2022 Lip swelling in 10/27 documented as of this encounter (statuses as of 06/19/2023) Medications Medication Sig Dispensed Refills Start Date [...] morning. 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 TAKE 1 TABLET BY MOUTH IN THE MORNING 90 Tablet 1 04/28/2023 Active Atorvastatin Calcium 40 MG Oral Tablet (Lipitor)Indicatio ns:Dyslipidemia, goal LDL below 100,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 TAKE 1 TABLET [...] THE MORNING 90 Tablet 1 06/19/2023 Active Diclofenac Sodium 75 MG Oral Tablet Delayed Release (Voltaren)Indicati ons:Age-related osteoporosis without current pathological fracture,S/P cervical spinal fusion TAKE 1 TABLET BY MOUTH IN THE MORNING AND 1 AT BEDTIME WITH FOOD 180 Tablet 1 12/22/2022 4 Discontinued metFORMIN HCl ER 500 MG Oral Tablet Extended Release 24 Hour (Glucophage XR)Indications:Typ e 2 diabetes mellitus with hemoglobin A1c goal of less than 7.0% (HCC) TAKE 1 TABLET BY MOUTH IN THE MORNING 90 Tablet 0 03/19/2023 4 Discontinued documented as of this encounter (statuses as of 06/19/2023) Active Problems Problem Noted Date Diagnosed Date [...] Directive brochure given to patient. Atherosclerosis of [place] co ronary artery of [place] heart without angina pectoris Age-related osteoporosis wit hout current pathological fracture S/P cervical spinal fusion History of acute anterolateral wall [place] documented as of this encounter (statuses as of 06/19/2023) Resolved Problems Problem Noted Date Diagnosed Date [...] as of this encounter (statuses as of 06/19/2023) Immunizations Name Administration Dates Next Due Pneumococcal [...] encounter Miscellaneous Notes * Telephone Encounter - Renaldo Barnard [facility] - 06/19/2023 1:27 PM EST Signed Prescriptions: Disp Refills Diclofenac Sodium 75 MG Oral Tablet [place]*180 Ta*1 Sig: TAKE 1 TABLET BY MOUTH TWICE DAILY WITH FOOD (MORNING AND BEDTIME)Authorizing Provider: DARIUS OMSS User: RENALDO BARNARD metFORMIN HCl ER 500 MG Oral Tablet Extend*90 Tab*1 Sig: TAKE 1 TABLET BY MOUTH IN THE MORNINGAuthorizing Provider: DARIUS MOSS User: RENALDO BARNARD documented in this encounter Plan of Treatment Scheduled Orders Name Type Priority Associated Diagnoses Orde r Schedule CBC Lab Routine Type 2 diabetes mellitus with hemoglobin A1c goal of less than 7.0% (HCC) Expected: 06/26/2023 (Approximate), Expires: 06/25/2024 COMPREHENSIVE METABOLIC PANEL Lab Routine Type 2 diabetes mellitus with hemoglobin A1c goal of less than 7.0% (HCC) Expected: 07/03/2023 (Approximate), Expires: 06/19/2024 LIPID PANEL WITH DIRECT LDL IF TG IS HIGH Lab Routine Type 2 diabetes mellitus with hemoglobin A1c goal of less than 7.0% (HCC) Expected: 06/26/2023 (Approximate), Expires: 06/25/2024 HEMOGLOBIN A1C Lab Routine Type 2 diabetes mellitus with hemoglobin A1c goal of less than 7.0% (HCC) Expected: 06/26/2023 (Approximate), Expires: 06/25/2024 VITAMIN B12 Lab Routine Encounter for long-term (current) use of other medications Expected: 06/26/2023 (Approximate), Expires: 06/25/2024 MAGNESIUM Lab Routine Encounter for long-term (current) use of other medications Expected: 06/26/2023 (Approximate), Expires: 06/25/2024 Health Maintenance Due Date Last Done Comments DISCUSS TOBACCO CESSATION (REFER TO SMARTSET #[id number]) 1945 COVID-19 Vaccine (#1) 1945 VITAMIN D LEVEL ONCE IN A LIFETIME-USE SMARTSET# [id number] 1986 Hepatitis B (1 of 3 - [...] long-term (current) use of other medications- Primary Age-related osteoporosis without current pathological fracture Senile osteoporosis S/P cervical spinal fusion Arthrodesis status Type 2 diabetes mellitus with hemoglobin A1c goal of less than 7.0% (HCC) documented in this encounter Care Teams Office Professional Relationship Specialty Start Date End Date Darius Moss MD [address] [place] [address] [place] [phone] PCP - General Family Medicine 10/25/18 documented as of this encounter
--- OUTSIDE RECORDS SUMMARY | 2023-08-10 07:13 | External Medical Summary | Summary of Care ---
Author Name Unknown Organization [facility] Address [address] [place] [address] Phone [phone] Care Team Providers Care Lagging Machine Operator Name Role Phone Darius Moss MD Primary Care Provider [phone] Reason for Visit * Reason Comments eRx-Medication Refill Encounter Details Date Type Department Care Team (Late st Contact Info) Description 04/30/2023 Refill Family Medicine [address] [address] Darius Moss MD [address] [place] [address] [place] [phone] Dyslipidemia, goal LDL below 100; Atherosclerosis of [place] coronary artery of [place] heart without angina pectoris Allergies Active Allergy Reactions Criticality Noted Date Comments Bee Venom Edema face/lips/tongue High 11/24/2022 Lip swelling in 10/27 documented as of this encounter (statuses as of 05/01/2023) Medications Medication Sig Dispensed Refills Start Date [...] morning. 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 TAKE 1 TABLET BY MOUTH IN THE MORNING 90 Tablet 1 04/28/2023 Active Atorvastatin Calcium 40 MG Oral Tablet (Lipitor)Indicatio ns:Dyslipidemia, goal LDL below 100,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 Atherosclerosis of [place] co ronary artery of [place] heart without angina pectoris Age-related osteoporosis wit hout current pathological fracture S/P cervical spinal fusion History of acute anterolateral wall [place] documented as of this encounter (statuses as of 05/01/2023) Resolved Problems Problem Noted Date Diagnosed Date [...] as of this encounter (statuses as of 05/01/2023) Immunizations Name Administration Dates Next Due Pneumococcal [...] Notes * Telephone Encounter - Renaldo Barnard RPh - 05/01/2023 10:05 AM EST Signed Prescriptions: Disp Refills Atorvastatin Calcium 40 MG Oral Tablet (Li*90 Tab*2 Sig: TAKE 1 TABLET BY MOUTH ONCE DAILY AT BEDTIMEAuthorizing Provider: DARIUS MOSS AOrdaniela User: RENALDO BARNARD Electronically signed by [facility] at 05/01/2023 10:05 AM EST documented in this encounter Plan of Treatment Health Maintenance Due Date Last Done Comments DISCUSS TOBACCO CESSATION (REFER TO SMARTSET #1863) 1945 COVID-19 Vaccine (#1) 1945 VITAMIN D LEVEL ONCE IN A LIFETIME-USE SMARTSET# [id number] 1986 Hepatitis B (1 of 3 - [...] as of this encounter Visit Diagnoses Diagnosis Dyslipidemia, goal LDL below 100 Other and unspecified hyperlipidemia Atherosclerosis of [place] coronary artery of [place] heart without angina pectoris documented in this encounter Care Teams Lagging Machine Operator Relationship Specialty Start Date End Date Darius Moss MD [address] [place] [address] [place] Gray [phone] PCP - General Family Medicine 10/25/18 documented as of this encounter
--- OUTSIDE RECORDS SUMMARY | 2023-08-10 07:13 | External Medical Summary | Summary of Care ---
Author Name Unknown Organization [facility] Address [address] [place] [address] Phone [phone] Care Team Providers Care Psychiatry Instructor Name Role Phone Darius Moss MD Primary Care Provider [phone] Reason for Visit * Reason Comments eRx-Medication Refill Encounter Details Date Type Department Care Team (Late st Contact Info) Description 04/27/2023 Refill Family Medicine [address] [address] Darius Moss MD [address] [place] [address] G[place] Gray [phone] Atherosclerosis of [place] coronary artery of [place] heart without angina pectoris Allergies Active Allergy Reactions Criticality Noted Date Comments Bee Venom Edema face/lips/tongue High 11/24/2022 Lip swelling in 10/27 documented as of this encounter (statuses as of 04/28/2023) Medications Medication Sig Dispensed Refills Start Date [...] morning. 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 Atherosclerosis of [place] co ronary artery of [place] heart without angina pectoris Age-related osteoporosis wit hout current pathological fracture S/P cervical spinal fusion History of acute anterolateral wall [place] documented as of this encounter (statuses as of 04/28/2023) Resolved Problems Problem Noted Date Diagnosed Date [...] as of this encounter (statuses as of 04/28/2023) Immunizations Name Administration Dates Next Due Pneumococcal [...] encounter Miscellaneous Notes * Telephone Encounter - Mili Ochoa [facility] - 04/28/2023 8:24 AM ESTSigned Prescriptions: Disp Refills Lisinopril 10 MG Oral Tablet (Prinivil) 90 Tab*1 Sig: TAKE 1 TABLET BY MOUTH IN THE MORNINGAuthorizing Provider: DARIUS MOSS AOrdaniela User: MILI OCHOA---- documented in this encounter Plan of Treatment Health Maintenance Due Date Last Done Comments DISCUSS TOBACCO CESSATION (REFER TO SMARTSET #6038) 1945 COVID-19 Vaccine (#1) 1945 VITAMIN D LEVEL ONCE IN A LIFETIME-USE SMARTSET# [id number] 1985 Hepatitis B (1 of 3 - [...] this encounter Visit Diagnoses Diagnosis Atherosclerosis 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
--- OUTSIDE RECORDS SUMMARY | 2023-08-10 07:13 | External Medical Summary | Summary of Care ---
Author Name Unknown Organization [facility] Address [address] [facility] [place] [address] Phone [phone] Care Team Providers Care Illusionist Name Role Phone Darius Maxwell MD Primary Care Provider [phone] Encounter Details Date Type Department Care Team (Late st Contact Info) Description 06/22/2023 Orders Only PATIENT PORTAL DO NOT DELETE THIS DEPT USED BY GREG SHIELDS [id number] Allergies Active Allergy Reactions Criticality Noted Date Comments Bee Venom Edema face/lips/tongue High 11/24/2022 Lip swelling in 10/27 documented as of this encounter (statuses as of 06/22/2023) Medications Medication Sig Dispensed Refills Start Date [...] morning. 60 Each 5 09/03/2022 Active Ipratropium [place] HFA 17 MCG/ACT Inhalation Aerosol Solution (Atrovent [...] 11/24/2022 Active Gabapentin 800 MG Oral Tablet (Neurontin)Indicatio ns:S/P cervical spinal fusion TAKE 1 TABLET BY MOUTH THREE TIMES DAILY (MORNING, NOON AND BEDTIME) 270 Tablet 1 02/03/2023 Active Carvedilol 6.25 MG Oral Tablet (Coreg)Indications:A therosclerosis of [place] coronary artery of [place] heart without angina pectoris,CKD (chronic kidney disease), stage II TAKE 1 TABLET BY MOUTH TWICE DAILY WITH FOOD (MORNING AND BEFORE BEDTIME) 180 Tablet 1 03/05/2023 Active Lisinopril 10 MG Oral Tablet (Prinivil)Indication s:Atherosclerosis of [place] coronary artery of [place] heart without angina pectoris TAKE 1 TABLET BY MOUTH IN THE MORNING 90 Tablet 1 04/28/2023 Active Atorvastatin Calcium 40 MG Oral Tablet (Lipitor)Indications :Dyslipidemia, goal LDL below 100,Atherosclerosis of [place] coronary artery of [place] heart without angina pectoris TAKE [...] THE MORNING 90 Tablet 1 06/19/2023 Active documented as of this encounter (statuses as of 06/22/2023) Active Problems Problem Noted Date Diagnosed Date [...] Directive brochure given to patient. Atherosclerosis of [place] co ronary artery of [place] heart without angina pectoris Age-related osteoporosis wit hout current pathological fracture S/P cervical spinal fusion History of acute anterolateral wall [place] documented as of this encounter (statuses as of 06/22/2023) Resolved Problems Problem Noted Date Diagnosed Date [...] as of this encounter (statuses as of 06/22/2023) Immunizations Name Administration Dates Next Due Pneumococcal [...] on file documented as of this encounter Plan of Treatment Health Maintenance Due Date Last Done Comments DISCUSS TOBACCO CESSATION (REFER TO SMARTSET #0308) 1945 COVID-19 Vaccine (#1) 1945 VITAMIN D LEVEL ONCE IN A LIFETIME-USE SMARTSET# [id number] 1986 Hepatitis B (1 of 3 - Risk 3-dose series) 2006 DTaP,Tdap,and Td Vaccines (2 - Td or Tdap) 01/01/2018 01/02/2008 DXA Scan 12/06/2019 12/05/2018, 09/19/2009 Depression Screening 01/03/2021 01/04/2020 Influenza Vaccine (FLU shot) (#1) 2023 02/13/2020, 02/13/2020, 05/03/2019, Additional history exists HbA1c 03/06/2023 09/03/2022, 122 02/2022, 11/18/2020, Additional history exists Albumin/Creatinine Ratio 06/04/2023 [...] filedocumented as of this encounter Care Teams Illusionist Relationship Specialty Start Date End Date Darius Maxwell MD [address] [place] [address] [place] [phone] PCP - General Family Medicine 10/25/18 documented as of this encounter
[2023-08-10 08:04] LABS: Estimated Average Glucose 151 mg/dl; Hemoglobin A1C 6.9 % (4.5-5.6)
--- NOTE | 2023-08-10 08:16 | Electrocardiogram Report ---
Test Reason : Blood Pressure : / mmHG Vent. Rate : 096 BPM Atrial Rate : 096 BPM P-R Int : 178 ms QRS Dur : 082 ms QT Int : 348 ms P-R-T Axes : 061 017 087 degrees QTc Int : 439 ms Normal sinus rhythm Left atrial enlargement Left ventricular hypertrophy ( Sokolow-Stoddard , Kilgore product ) Nondiagnostic inferior Q waves Old Anteroseptal infarct (cited on or before 14-JAN-[address]22) [address] elevation in Anterior leads ? LV aneurysm Abnormal ECG When compared with ECG of 14-JAN-2022 13:56, Vent. rate has increased BY 35 BPM Confirmed by Gerson Molina ([id number]) on 08/10/2023 8:16:17 AM Referred By: REFERRED SELF Confirmed By:Gerson Molina
--- NOTE | 2023-08-10 08:17 | Electrocardiogram Report ---
Test Reason : Blood Pressure : / mmHG Vent. Rate : 099 BPM Atrial Rate : 099 BPM P-R Int : 168 ms QRS Dur : 098 ms QT Int : 354 ms P-R-T Axes : 073 -16 091 degrees QTc Int : 454 ms Sinus rhythm with Premature atrial complexes Left atrial enlargement Left ventricular hypertrophy Nondiagnostic inferior Q wave Old Anteroseptal infarct (cited on or before 14-JAN-2022) Persistent ST elevation in Anterior leads Abnormal ECG When compared with ECG of 09-AUG-2023 19:32, Premature ventricular complexes are no longer Present Premature atrial complexes are now Present Confirmed by Gerson Molina ([id number]) on 08/10/2023 8:17:04 AM Referred By: REFERRED SELF Confirmed By:Gerson Molina
--- NOTE | 2023-08-10 08:27 | Cardiology Consultation ---
Date of Consultation August 10, 2023 Assessment & Plan (1) Acute on chronic heart failure with reduced ejection fraction and diastolic dysfunction: (2) Acute non-ST elevation myocardial infarction (NSTEMI): (3) CAD (coronary artery disease): (4) Acute pain of left shoulder: (5) Ischemic cardiomyopathy: Plan Patient with history of CAD prior anterior NJ in 2005 receiving XAVI to the prox LAD, LVEF 45% at that time. Admitted with worsening SOB for several weeks and ongoing left shoulder/left arm pain (months). SOB associated with increased edema, orthopnea, cough. He was found to have minimally elevated HS troponin on arrival, but has remained fairly flat per serial readings. Ranging 50's-60s. He has denied chest pain. EKG demonstrated NSR with old anteroseptal infarct, possible mild ST elevation in V2-V4, but also consistent with old NJ. Echo with evidence of old anterior NJ with reduced EF at 20-25% (previously 40- 45% in 2021). He was started on IV heparin for concerns of NSTEMI. He is on chronic Plavix for history of possible TIA/CVA in the past. Continue atorvastatin. Increase carvedilol to 12.5 mg BID due to uncontrolled hypertension Continue lisinopril. Chest xray with pulm vascular congestion and b/l pleural effusions. Chest CT concerning for possible underlying infection and/or asbestos. Received one dose IV furosemide in the ER. Started on antibiotics per hospitalist. recommend additional Furosemide IV 40 mg today with supplemental potassium 20 meq. Monitor I+O's Fluid restriction of 1500 ml His shoulder/arm pain is consistent with musculoskeletal etiology, worse with movement of his arm, raising his arm. Shoulder Xray is consistent with severe osteoarthritis. He has been hypertensive since admission. Increase carvedilol to 12.5 mg BID Continue diuresis today. Could consider future cardiac cath given decline in LVEF. However he has no specific anginal complaints currently. Recommend treating for acute HFrEF with diuretics and antibiotics for possible pulmonary infection. Consider pulm consult ? Case discussed with Dr. Bergman I spent a total of 70 minutes on the date of service in preparation, delivery, and documentation of the care provided to this patient, excluding any time spent in the performance of separately billed services. Yoselyn Gill PA-C Department of Cardiology, [facility] This chart was completed in part utilizing Speech Voice Recognition Software. Grammatical errors, random word insertions, pronoun errors, and incomplete sentences are an occasional consequence of this system due to software limitations, ambient noise, and hardware issues. Any formal questions or concerns about the content, text, or information contained within the body of this dictation should be directly addressed to the provider for clarification. Supervising Physician Co-Signing Physician Notes Patient was seen and personally examined full assessment and plan as outlined above. 78-year-old male with known coronary disease with prior LAD distribution myocardial infarction in the remote past. Known ischemic cardiomyopathy with mild to moderate left dysfunction Presented for evaluation of persistent left shoulder pain very atypical for angina induced by movement exertion and positional changes per patient Additional symptoms and complaints including increasing fatigue and dyspnea times several weeks. Exam notable on presentation for pain in left shoulder with movement Substance testing however is demonstrated evidence of mild decompensated systolic heart failure and declining ejection fraction as well as mild but flat elevation in troponin. Patient improved since initiation of both antibiotic therapies and IV furosemide Patient feels much less dyspneic since hospitalization but still with persistent pain in left shoulder on any movement Physical examination Heart rate 67, blood pressure 111/69 O2 saturation 94% on 2 L nasal cannula Minimal jugular venous distention no carotid bruits Coarse rales/rhonchi at bases worse with cough Cardiovascular exam regular with grade 2 or 6 systolic ejection murmur no S3 gallop Extremities with trace edema Echocardiogram as above moderate to severe reduction in LV function with global hypokinesis and focal akinesis of the LAD distribution EF 20-25%, moderate mitral insufficiency, mild aortic stenosis Impression: 1. Left shoulder pain atypical for angina, troponin elevation not reflective of acute coronary syndrome currently 2. Ischemic cardiomyopathy with decompensated systolic heart failure subacute 3. Reduced ejection fraction with moderate mitral insufficiency Plan: Optimize medical therapies and treat congestive heart failure. Plan as outlined May require further investigation of ischemic burden depending on clinical course, response to therapies History of Present Illness Reason for Consultation: Left shoulder/arm pain; Elevated Troponin Requesting Physician: Dr. Telles Attending Physician: Dr. Bergman History of Present Illness Patient is a 78 year old male who presented to [facility] with complaints of worsening left shoulder/arm pain, ongoing for several months. 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 History includes: 1. CAD s/p anterior NJ in 2005 - treated at [facility] - Per notes in EPIC, he had a subtotal occlusion of the prox LAD, receiving angioplasty and a XAVI. He has had evidence of anterior wall NJ on serial echoes. LVEF last reported in January 2022 at 40-45%. 2. History of prior CVA/TIA and seizure like activity, admitted in January 2022. Treated with ASA and Plavix for 3 weeks, then transitioned to Plavix monotherapy 3. Chronic tobacco abuse 4. DM type II 5. Hypertension 6. Dyslipidemia Patient admitted with complaints of worsening SOB and left arm/shoulder pain. SOB has been worsening over the last few weeks. He noted increased edema, orthopnea, PND. He does not take a diuretic as an outpatient. No exertional chest pain reported. He has reported left shoulder and left arm pain, described as an "ache" over the last few months. Symptoms have been persistent and reports he "cant use his arm" due to the pain with movement. Symptoms do not worsening with exertion. he keeps his left hand in his pocket with walking to minimize movement of his left shoulder and then he "feels ok". Yesterday due to the persistent aching in his arm and worsening SOB with ac tivity, he came to the ER for evaluation. EKG on arrival demonstrated NSR with evidence of old anterior infarct and mild ST elevation in V2-V4. HS troponin on admission minimally elevated but flat when trended every 6 hours - 57-57-62. He was started on IV heparin for concerns regarding NSTEMI. He has remained chest pain free. Chest xray with small b/l pleural effusions and mild pulm vascular congestion. Chest CT also noting bibasilar opacities concerning for possible infection, b/l pleural effusions and possible calcified pleural plaque consistent with possible asbestosis lung injury. Echocardiogram was also completed on admission demonstrated reduced LVEF at 25%, a decline since 2021. At time of consult, patient was resting in bed, eating breakfast. he denies chest pain at rest or with exertion. He describes ongoing left shoulder pain, worse with movement of his left arm. His shoulder xray is consistent with severe osteoarthritis. Edema improved from admission. SOB improving. He has received one dose of IV lasix since admission. He was also started on antibiotics for possible pulm infection. Allergies Allergy/AdvReac Type Severity Reaction Status Date / Time bee venom protein (honey bee) Allergy Severe Anaphylaxis--carries Verified 08/09/23 21:10 an Epipen Home Medications Medication Instructions Recorded Confirmed Type alendronate 70 mg tablet 70 mg PO WK 01/14/22 08/09/23 History atorvastatin 40 mg tablet 40 mg PO DAILY 01/14/22 08/09/23 History carvedilol 6.25 mg tablet 6.25 mg PO BID 01/14/22 08/09/23 History gabapentin 800 mg tablet 800 mg PO TID 01/14/22 08/09/23 History lisinopril 10 mg tablet 10 mg PO DAILY 01/14/22 08/09/23 History albuterol sulfate 90 mcg/actuation 2 puff inhalation Q6H PRN 01/17/22 08/09/23 Rx aerosol inhaler (Ventolin HFA) shortness of breath or wheezing #6.7 grams blood sugar diagnostic #100 ea 01/17/22 Rx blood-glucose meter (OneTouch #1 ea 01/17/22 Rx Verio Meter) clopidogrel 75 mg tablet 75 mg PO QAM #30 tabs 01/17/22 08/09/23 Rx fluticasone furoate 100 1 inh inhalation DAILY #60 ea 01/17/22 08/09/23 Rx mcg-vilanterol 25 mcg/dose inhalation powder (Breo Ellipta) lancets #200 ea 01/17/22 Rx metformin 500 mg tablet,extended 500 mg PO DAILY #30 tabs 01/17/22 08/09/23 Rx release 24 hr diclofenac sodium 75 mg 75 mg PO BID 08/09/23 08/09/23 History tablet,delayed release epinephrine 0.3 mg/0.3 mL 0.3 mg IM DIRECTED PRN Allergic 08/09/23 08/09/23 History injection, auto-injector (EpiPen) Reaction ipratropium bromide 17 2 puff inhalation QID PRN 08/09/23 08/09/23 History mcg/actuation HFA aerosol inhaler NEEDED PER PT Patient History Medical History Chronic pain CAD (coronary artery disease) Tobacco use CKD (chronic kidney disease), stage II Diabetes mellitus, type II High cholesterol Hypertension Surgical History H/O cervical spine surgery Family History Other Aneurysm Cancer Social History Smoking Status: Current some day smoker Tobacco Type: Cigarettes Cigarettes Per Day: 10; Second Hand Exposure: No; Do You Dip or Chew Tobacco: No; Tobacco Cessation Education Requested by Patient: No Hx Alcohol Use: Yes Alcohol type: beer Hx Substance Use: No Preferred Language: Hungarian Communication Ability: Effective Financing Analyst Required: No Beliefs That Will Affect Care: None marital status: Current Living Situation: Alone Current Living Situation Comment: lives with his granddaughter Other Information That Helps Us Care for You: No Feels Safe at Home: Yes Safety Concerns: Feels Safe At This Time Assistive Devices: Denture - Upper, Denture - Lower and Glasses Review of Systems Review of Systems: All systems reviewed & are unremarkable except as noted in HPI & below Physical Exam Constitutional: WD/WN, vitals as above + thin; no acute distress Neck: trachea midline, no thyromegaly Respiratory: no labored breathing Auscultation: + diminished lung sounds, + rales and + wheezes Cardiovascular: Rate/Rhythm: regular rate and regular rhythm Heart Sounds: + murmur (I/ systolic murmur) Vessels: + JVD Extremities: no edema Gastrointestinal (Abdomen): normal bowel sounds, soft, nontender, no hepatosplenomegaly Skin: no rashes, warm and dry Neurologic: PERRL, EOMI, accommodation nl, no face palsy, no dysarthria Results & Data Vital Signs (Past 12 Hours) Vital Signs Temp Pulse Pulse Resp BP Pulse Ox O2 Del Method 08/10/23 07:49 36.8 C 89 19 160/87 H 96 Nasal Cannula 08/10/23 05:58 70 08/10/23 04:33 Nasal Cannula 08/10/23 04:21 36.5 C 101 H 18 165/90 H 92 Nasal Cannula 08/10/23 04:15 110 H 08/10/23 02:00 71 16 133/74 94 Nasal Cannula 08/10/23 00:49 92 Nasal Cannula 08/10/23 00:47 89 16 136/85 88 L Room Air 08/09/23 23:39 81 08/09/23 22:26 76 20 143/88 H 91 Room Air 08/09/23 21:37 97 H 20 154/90 H 92 Room Air O2 Flow Rate 08/10/23 07:49 3.0 08/10/23 05:58 08/10/23 04:33 2 08/10/23 04:21 2 08/10/23 04:15 08/10/23 02:00 2 08/10/23 00:49 2 08/10/23 00:47 08/09/23 23:39 08/09/23 22:26 08/09/23 21:37 Laboratory Results Cardiac Enzymes 08/09/23 08/09/23 08/10/23 Range/Units 18:38 19:36 05:27 AST 15 (13-39) U/L Troponin I High Sens 57.1 H* 57.2 H* 62.3 H* (0-20) pg/ml Coagulation 08/09/23 Range/Units 18:38 APTT Cancelled CBC 08/09/23 08/10/23 Range/Units 18:38 05:27 WBC 5.67 5.06 (4.8-10.8) K/ul RBC 4.20 L 3.95 L (4.70-6.10) M/uL Hgb 13.2 L 12.3 L (14.0-18.0) g/dl Hct 40.3 L 37.0 L (42.0-52.0) % Plt Count 209 209 (130-400) K/uL Neut # (Auto) 4.45 3.56 (1.40-6.50) K/uL Lymph # (Auto) 0.64 L 0.79 L (1.20-3.40) K/uL [place] # (Auto) 0.47 0.56 (0.11-0.59) K/uL Eos # (Auto) 0.08 0.12 (0.00-0.50) K/uL Baso # (Auto) 0.02 0.02 (0.00-0.20) K/uL Comprehensive Metabolic Panel 08/09/23 08/10/23 Range/Units 18:38 05:27 Sodium 137 141 (136-145) mmol/L Potassium 4.8 3.8 D (3.5-5.1) mmol/L Chloride 106 103 (98-107) mmol/L Carbon Dioxide 26 29 (21-32) mmol/L BUN 20 18 (6-23) mg/dl Creatinine 0.99 0.92 (0.6-1.4) mg/dl Glucose 157 H 108 H (70-99(Fasting)) mg/dl Calcium 8.8 8.4 L (8.6-10.3) mg/dl AST 15 (13-39) U/L ALT 15 (7-52) U/L Alkaline Phosphatase 63 (34-104) U/L Total Protein 6.7 (6.0-8.3) gm/dl Albumin 3.9 (3.4-5.0) gm/dl Intake and Output 08/09/23 08/10/23 08/10/23 22:59 06:59 14:59 Intake Total 106.933 / 106.933 55.1 / 55.1 Balance 106.933 / 106.933 55.1 / 55.1 Intake: IV 106.933 / 106.933 55.1 / 55.1 Heparin Sodium/Dextrose 25,000 106.933 / 106.933 55.1 / 55.1 units In 500 ml @ 950 UNITS/HR 19 mls/hr IV .Q24H [facility] Rx#: [id number] Other: # Unmeasured Voids 1 Weight 68.6 kg 65.5 kg Weight Measurement Method Chair Scale Built in [facility] Diagnostic Findings Telemetry Reviewed: NSR in the 80-90's. No arrhythmias Echo report reviewed dated 08/10/23: LV is mildly dilated Moderate concentric LVH Severe diffuse left ventricular dysfunction with focal akinesis of the mid and apical septum including the entire apex with mild expansion. EF 20-25% Moderately calcified aortic valve Mild Moderate MR Mild Tr RV systolic pressure is elevated at 40-50 mmHG EKG on arrival on 08/08: NSR Evidence of old anteroseptal infarct ST elevation V2-V4? EKG repeated on 08/08: NSR with PVC old anteroseptal infarct persistent ST elevation in anterior leads vs repolarization Repeat EKG 08/09: NSR with PAC's anteroseptal infarct ST elevation improving in anterior leads Chest CT report reviewed from 08/09/23: IMPRESSION: 1. There is no significant pericardial effusion. 2. Bibasilar airspace opacities are concerning for atypical infection and/or aspiration. Recommend follow-up repeat CT of the chest when the acute process resolved as underlying pulmonary nodules are suspected. 3. Interseptal thickening is concerning for pulmonary edema. 4. Small bilateral pleural effusions. 5. Emphysema. 6. A calcified right pleural plaque is present. This is concerning for asbestosis related lung disease. Chest xray report reviewed dated 08/08: IMPRESSION: Cardiomegaly with pulmonary vascular congestion and mild nonspecific interstitial coarsening suggestive of pulmonary edema. An interstitial pneumonia could appear similarly. Shoulder xray on admission: IMPRESSION: Severe osteoarthritis without acute fracture or dislocation. Prior echo dated January 2022 [facility]: Moderate concentric LVH. Large sized apical, septal and anteroseptal wall motion abnormality with hypokinesis to akinesis of the segments. Left ventricle systolic function is mildly reduced. EF 40 to 45%. No significant aortic regurgitation or stenosis. Grade 1 diastolic dysfunction. No left ventricular apical mural thrombus visualized. Echo unchanged from prior studies. Medications Administered Current Inpatient Medications Acetaminophen (Acetaminophen 325 Mg Tab) 650 mg PO Q4H PRN PRN Reason: Pain or Fever Stop: 09/09/23 04:08 Albuterol (Albuterol Hfa 8 Gm Inhaler) 2 puffs INH Q6H PRN PRN Reason: shortness of breath or wheezing Stop: 09/09/23 04:08 Atorvastatin Calcium (Atorvastatin 40 Mg Tab) 40 mg PO DAILY RAJESH Stop: 09/09/23 08:59 Carvedilol (Carvedilol 6.25 Mg Tab) 6.25 mg PO BID RAJESH Stop: 09/09/23 08:59 Clopidogrel Bisulfate (Clopidogrel Bisulfate 75 Mg Tab) 75 mg PO QAM RAJESH Stop: 09/09/23 08:59 Dextrose (Dextrose 50% 50 Ml Syringe) 25 - 50 ml IV UD PRN; Protocol PRN Reason: Hypoglycemia Protocol Stop: 09/09/23 04:08 Fluticasone/Vilanterol (Fluticasone/Vilanterol 100/25mcg 14 Puffs/Inhaler) 1 puffs INH DAILY RAJESH Stop: 09/09/23 08:59 Gabapentin (Gabapentin 800 Mg Tab) 800 mg PO TID RAJESH Stop: 09/09/23 08:59 Glucagon (Glucagon For Inj 1 Mg Vial) 1 mg SQ UD PRN; Protocol PRN Reason: Hypoglycemia Protocol Stop: 09/09/23 04:08 Glucose (Glucose 10 Tab/Tube) 4 - 8 tab PO UD PRN; Protocol PRN Reason: Hypoglycemia Treatment Stop: 09/09/23 04:08 Glucose (Glucose 40% Gel 15 Gm Tube) 15 - 30 gm PO UD PRN; Protocol PRN Reason: Hypoglycemia Protocol Stop: 09/09/23 04:08 Heparin Sodium/Dextrose (Heparin Sodium/Dextrose) 25,000 units in 500 mls @ 19 mls/hr IV .Q24H RAJESH; Protocol Stop: 09/08/23 20:59 Last Titration: 08/10/23 07:06 Dose: 950 units/hr, 19 mls/hr Piperacillin Sod/Tazobactam (Sod 4.5 gm/ Dextrose) 100 mls @ 25 mls/hr IV Q8H RAJESH; Protocol Stop: 08/17/23 13:59 Doxycycline Hyclate 100 mg/ (Dextrose) 100 mls @ 50 mls/hr IV Q12H RAJESH Stop: 08/17/23 07:59 Insulin Aspart (Insulin Aspart Per Unit Charge) 0 units SC Q6 RAJESH Stop: 09/09/23 05:59 Last Admin: 08/10/23 06:53 Dose: Not Given Ipratropium [place] (Ipratropium [place] Hfa Inhaler) 2 puffs INH Q6H PRN PRN Reason: SOB/WHEEZING Stop: 09/09/23 04:08 Lisinopril (Lisinopril 10 Mg Tab) 10 mg PO DAILY [facility] Stop: 09/09/23 08:59 Miscellaneous (Carbohydrates For Hypoglycemia ) 15 - 30 gm PO UD PRN PRN Reason: Hypoglycemia Protocol Stop: 09/09/23 04:08 Morphine Sulfate (Morphine Sulfate 2 Mg/Ml [place]) 2 mg IV Q3H PRN PRN Reason: Severe Pain (Scale 7, 8, 9,10) Stop: 08/24/23 04:08 Nitroglycerin (Nitroglycerin Sl 0.4 Mg/Tab Tab) 0.4 mg SL Q5M PRN PRN Reason: Chest Pain Stop: 09/09/23 04:08 (3) CAD (coronary artery disease) Associated angina: with unspecified form of angina Coronary Disease- Associated Artery/Lesion type: [place] artery [place] vs. transplanted heart: shawnee heart Qualified Code(s): I25.119 - Atherosclerotic heart disease of shawnee coronary artery with unspecified angina pectoris
--- NOTE | 2023-08-10 08:30 | Electrocardiogram Report ---
Test Reason : Blood Pressure : / mmHG Vent. Rate : 106 BPM Atrial Rate : 106 BPM P-R Int : 170 ms QRS Dur : 078 ms QT Int : 320 ms P-R-T Axes : 060 022 073 degrees QTc Int : 425 ms Sinus tachycardia with occasional Premature ventricular complexes Left atrial enlargement Left ventricular hypertrophy Old Anteroseptal infarct (cited on or before 14-JAN-2022) Persistent ST elevation in Anterior leads Abnormal ECG When compared with ECG of 09-AUG-2023 18:36, Premature ventricular complexes are now Present Confirmed by Gerson Molina ([id number]) on 08/10/2023 8:30:00 AM Referred By: REFERRED SELF Confirmed By:Gerson Molina
[2023-08-10] MEDS: DOXYCYCLINE HYCLATE 100 MG in DEXTROSE 5% MINI-B 100 ML IV SCH (09:22)
[2023-08-10] MEDS: PIPER/TAZO 4.5g in D5W MINI-B 100 ML IV ONE (09:23)
[2023-08-10] MEDS: lisinopril 10 MG TAB PO SCH (09:24)
[2023-08-10] MEDS: GABAPENTIN 800 MG TAB PO SCH (09:24)
[2023-08-10] MEDS: ATORVASTATIN 40 MG TAB PO SCH (09:24)
[2023-08-10] MEDS: FLUTICASONE/VILANTEROL 100/25MCG 14 PUFFS/INHALER INH SCH (09:24)
[2023-08-10] MEDS: carvediloL 6.25 MG TAB PO SCH (09:24)
[2023-08-10] MEDS: CLOPIDOGREL BISULFATE 75 MG TAB PO SCH (09:24)
[2023-08-10] MEDS ORDERED: ALBUT/IPRATROP 3MG/0.5MG NEB 3 ML VIAL NEB PRN (09:27)
[2023-08-10] MEDS ORDERED: Nursing to Pharmacy Communication SCH (10:30)
[2023-08-10] MEDS: ALBUT/IPRATROP 3MG/0.5MG NEB 3 ML VIAL NEB SCH (11:05)
[2023-08-10] MEDS: SODIUM CHLOR 7% 4 ML NEB NEB SCH (11:05)
[2023-08-10 11:57] LABS: ANTI-Xa, UFH(UnfractionatedHep 0.33 IU/ml (0.3-0.7)
[2023-08-10] MEDS: FUROSEMIDE 40 MG/4 ML VIAL IV SCH (12:37)
[2023-08-10] MEDS: POTASSIUM CHLORIDE CRTAB 20 MEQ TABCR PO SCH (12:37)
--- NOTE | 2023-08-10 14:19 | XRay Report ---
XR shoulder LT min 2V routine CLINICAL HISTORY: Left shoulder pain TECHNIQUE: 3 views of the left shoulder were obtained. Comparison: Comparison is made to shoulder radiograph 08/09/2023 FINDINGS: There is no evidence of an acute fracture. Degenerative changes are seen in the glenohumeral joint. T he overlying soft tissues are unremarkable. The visualized portions of the lungs are clear. IMPRESSION: Degenerative changes without evidence of acute abnormality. ACT 112: Negative or not required by law. Electronically signed by: Timbo Field M.D. 08/10/2023 2:17 PM
[2023-08-10] MEDS: PIPERACILLIN/TAZOBACTAM 4.5 GM in DEXTROSE 5% MINI-B 100 ML IV SCH (14:42)
--- NOTE | 2023-08-10 15:40 | Hospitalist Progress Note ---
Date of Service August 10, 2023 Assessment & Plan (1) Acute pain of left shoulder: Plan: 78-year-old male with past medical history significant for type 2 diabetes, CKD stage II, hyperlipidemia, CAD, presents with ongoing left-sided shoulder pain radiating to left arm since last 1 month. Left shoulder pain Demand ischemia Acute on chronic systolic CHF Patient presents with 1 month history of left shoulder pain radiating down the arm. No chest pain or shortness of breath Shoulder x-ray shows degenerative changes. High-sensitivity troponin troponin around 50s EKG on admission personally reviewed; normal sinus rhythm with PAC; nonspecific ST and T wave changes. Echocardiogram shows EF of 20 to 25%; severe diffuse left ventricle dysfunction with focal akinesis of the mid and apical septum including the entire apex with mild expansion. Cardiology consulted; recommended to optimize therapies and treat CHF. 1 dose of IV Lasix given. May require further investigation of ischemia burden depending on clinical course. Currently on heparin drip. Bilateral pneumonia CT chest on admission personally reviewed; bibasilar airspace opacities present. Also has calcified right pleural plaque. Concerning for asbestosis related lung disease. Started on Zosyn and doxycycline. Speech consulted for possible aspiration Patient will need follow-up with PCP and pulmonology referral. He will also need repeat chest x-ray in 6 weeks as outpatient. Started on DuoNebs and hypertonic saline for airway clearance History of CAD On Plavix, statin and beta-brenda Hypertension On Coreg, lisinopril Will monitor Diabetes Hold metformin Sliding scale Continue to monitor Tobacco abuse Trying to cut down Has wheezing on exam Started on DuoNebs [id number] DVT prophylaxis On IV heparin Disposition Telemetry Full code Time spent evaluating patient, direct bedside care, chart review, placing orders, interpretation of diagnostic studies, discussion with consultants, patient, and family members, as well as other required patient management activities is 50 minutes Please note the above document was generated using voice recognition software. It may contain grammatical, syntax or spelling errors. Any formal questions or concerns about the content, text or information contained within the body of this dictation should be directly addressed to the provider for clarification Admission and Anticipated Discharge Date Admission Date: August 09, 2023 Subjective Patient seen and examined at bedside. He is comfortably sitting up on the bed; not in distress. Reports pain on movement of his right shoulder. Review of Systems Review of Systems: All systems reviewed & are unremarkable except as noted in Subjective Physical Exam Physical Exam: Constitutional: Alert oriented x 3; not in distress Respiratory: Bilateral vesicular breath sounds with Cardiovascular: RRR, no murmur, no edema Vessels: no JVD or carotid bruit Chest: normal inspection of chest Abdomen: normal bowel sounds, soft, nontender, no hepatosplenomegaly Musculoskeletal: no cyanosis or clubbing, extremities motor strength 5/5. ROM painful on left shoulder. Skin: no rashes, warm and dry normal turgor Neurologic: PERRL, EOMI, accommodation nl, no face palsy, no dysarthria CN's II- XI intact bilaterally and moves all extremities Psychiatric: A+Ox3, euthymic affect Results & Data Results & Data Vital Signs (Past 12 Hours) Vital Signs Temp Pulse Pulse Pulse Resp BP Pulse Ox 08/10/23 15:16 37.2 C 75 18 115/67 93 08/10/23 14:06 67 18 94 08/10/23 12:15 36.9 C 70 18 111/69 95 08/10/23 11:06 17 94 08/10/23 09:20 08/10/23 07:49 36.8 C 89 19 160/87 H 96 08/10/23 05:58 70 08/10/23 04:33 08/10/23 04:21 36.5 C 101 H 18 165/90 H 92 08/10/23 04:15 110 H O2 Del Method O2 Flow Rate 08/10/23 15:16 Room Air 08/10/23 14:06 Nasal Cannula 2 08/10/23 12:15 Nasal Cannula 2.0 08/10/23 11:06 Nasal Cannula 2 08/10/23 09:20 Nasal Cannula 2 08/10/23 07:49 Nasal Cannula 3.0 08/10/23 05:58 08/10/23 04:33 Nasal Cannula 2 08/10/23 04:21 Nasal Cannula 2 08/10/23 04:15
[2023-08-10] MEDS: carvediloL 12.5 MG TAB PO SCH (21:01)
--- NOTE | 2023-08-11 07:36 | Electrocardiogram Report ---
Test Reason : Blood Pressure : / mmHG Vent. Rate : 077 BPM Atrial Rate : 077 BPM P-R Int : 166 ms QRS Dur : 104 ms QT Int : 390 ms P-R-T Axes : 068 -02 099 degrees QTc Int : 441 ms Sinus rhythm with Premature atrial complexes Left atrial enlargement Left ventricular hypertrophy Nondiagnostic inferior Q waves Old Anteroseptal infarct (cited on or before 14-JAN-2022) Abnormal ECG When compared with ECG of 10-AUG-2023 06:30, No significant change was found Confirmed by Gerson Molina ([id number]) on 08/11/2023 7:36:21 AM Referred By: REFERRED SELF Confirmed By:Gerson Molina
[2023-08-11 07:58] LABS: Basophils # (auto) 0.02 K/uL (0.00-0.20); Basophils % (auto) 0.4 %; Eosinophils # (auto) 0.06 K/uL (0.00-0.50); Eosinophils % (auto) 1.1 %; Hematocrit (blood only) 39.5 % (42.0-52.0); Hemoglobin 12.9 g/dl (14.0-18.0); Immature Granulocytes # (auto) 0.02 K/uL (0.01-0.20); Immature Granulocytes % (auto) 0.4 %; Lymphocytes # (auto) 0.94 K/uL (1.20-3.40); Mean Corpuscular Hgb Conc 32.7 g/dL (32.0-36.0); Mean Platelet Volume 11.1 fL (9.4-12.4); Monocytes # (auto) 0.69 K/uL (0.11-0.59); Monocytes % (auto) 12.5 %; Neutrophils # (auto) 3.81 K/uL (1.40-6.50); Neutrophils % (auto) 68.6 %; Platelet Count 196 K/uL (130-400); RDW Coefficient of Variation 13.7 % (11.5-14.5); RDW Standard Deviation 47.9 fL (36.4-46.3); Red Blood Count 4.16 M/uL (4.70-6.10); White Blood Count 5.54 K/ul (4.8-10.8)
[2023-08-11 08:11] LABS: BUN Creatinine Ratio 14.5 (10-20); Calcium 8.4 mg/dl (8.6-10.3); Creatinine Clr Calc Pharmacy 52.6 ml/min; Est GFR (African American) 74.7 ml/min; Est GFR (Non-African American) 64.4 ml/min; Potassium 3.8 mmol/L (3.5-5.1)
[2023-08-11 08:22] LABS: ANTI-Xa, UFH(UnfractionatedHep 0.35 IU/ml (0.3-0.7)
--- NOTE | 2023-08-11 14:49 | Cardiology Progress Note ---
Date of Service August 11, 2023 Assessment & Plan Admission and Anticipated Discharge Date Admission Date: August 09, 2023 Supervising Physician Co-Signing Physician Notes Attending Staff: 78-year-old man presenting with left shoulder pain - atypical for angina - +positional changes * + Coronary disease - LAD distribution NV - remote past. * Ischemic cardiomyopathy with mild to moderate LV dysfunction * +Fatigue and dyspnea times * LVEF noted to decline from previous (from 40-45% to 20-25%); MR now moderate - LVID 6.6 cm (dilated) * Troponin - mildly elevated but flat * Patient treated with both antibiotics and IV furosemide * Explained his worsening LVEF * Explained that his worsening LVEF may be secondary to Multivessel CAD * + ETOH * + Smoking * Explained that both ETOH and smoking may be contributing factors * Pt was open to a Coronary CTA to define his underlying anatomy. * Would also consider other etiologies that may contribute - check TSH, check Phosphate levels * Consider Thiamine + MVI * Continue Crestor * STOP Lisinopril * START Losartan 25 mg po per day * Consider Entresto 24/26 mg po BID as an outpt * Continue Coreg 12.5 mg po BID * Start Aldactone 25 mg po per day * Consider Jardiance 10 mg po per day * Patient appears euvolemic on exam * STOP IV LASIX * Start Lasix 20 mg po per day * Wean FIO2 * K+ goal 4.5-5 * Mag goal >2 * Plans to have patient follow up with [facility] * Please call back with any additional questions Pro Mendoza Subjective Events overnight: Subjective: Review of Systems Review of Systems: All systems reviewed & are unremarkable except as noted in HPI & below Physical Exam Physical Exam: Thin man in NAD No elevation in JVP Neck scar (previous trauma surgery) Diffuse rhonchi S1S2 - distant No C/C/E - warm and perfusing Results & Data Vital Signs (Past 12 Hours) Vital Signs Temp Pulse Pulse Resp BP Pulse Ox O2 Del Method 08/11/23 12:49 Nasal Cannula 08/11/23 11:07 36.7 C 67 17 103/58 L 99 Nasal Cannula 08/11/23 11:03 64 18 94 Nasal Cannula 08/11/23 08:28 77 08/11/23 07:50 36.6 C 72 17 126/75 91 Nasal Cannula 08/11/23 07:06 90 18 91 Nasal Cannula 08/11/23 03:31 36.9 C 73 17 120/72 94 Nasal Cannula O2 Flow Rate 08/11/23 12:49 2 08/11/23 11:07 08/11/23 11:03 2 08/11/23 08:28 08/11/23 07:50 08/11/23 07:06 2 08/11/23 03:31 2 Laboratory Results Cardiac Enzymes 08/10/23 Range/Units 17:11 Troponin I High Sens 53.1 H* (0-20) pg/ml CBC 08/11/23 Range/Units 07:35 WBC 5.54 (4.8-10.8) K/ul RBC 4.16 L (4.70-6.10) M/uL Hgb 12.9 L (14.0-18.0) g/dl Hct 39.5 L (42.0-52.0) % Plt Count 196 (130-400) K/uL Neut # (Auto) 3.81 (1.40-6.50) K/uL Lymph # (Auto) 0.94 L (1.20-3.40) K/uL Branch # (Auto) 0.69 H (0.11-0.59) K/uL Eos # (Auto) 0.06 (0.00-0.50) K/uL Baso # (Auto) 0.02 (0.00-0.20) K/uL Comprehensive Metabolic Panel 08/11/23 Range/Units 07:35 Sodium 139 (136-145) mmol/L Potassium 3.8 (3.5-5.1) mmol/L Chloride 99 (98-107) mmol/L Carbon Dioxide 34 H (21-32) mmol/L BUN 16 (6-23) mg/dl Creatinine 1.10 (0.6-1.4) mg/dl Glucose 110 H (70-99(Fasting)) mg/dl Calcium 8.4 L (8.6-10.3) mg/dl Intake and Output 08/10/23 08/11/23 08/11/23 22:59 06:59 14:59 Intake Total 300 / 1613.067 637.967 / 1613.067 680 / 680 Output Total 750 / 1600 400 / 1600 Balance -450 / 13.067 237.967 / 13.067 680 / 680 Intake: IV 100 / 893.067 537.967 / 893.067 200 / 200 Doxycycline Hyclate 100 mg In 100 / 200 100 / 100 Dextrose 5% Mini-B 100 ml @ 50 mls/hr IV Q12H [facility] Rx#:[id number] Heparin Sodium/Dextrose 25,000 337.967 / 393.067 units In 500 ml @ 950 UNITS/HR 19 mls/hr IV .Q24H [facility] Rx#: [id number] Piperacillin/Tazobactam 4.5 gm 100 / 200 100 / 200 100 / 100 In Dextrose 5% Mini-B 100 ml @ 25 mls/hr IV Q8H [facility] Rx#: [id number] Oral 200 / 720 100 / 720 480 / 480 Output: Urine 750 / 1600 400 / 1600 Other: Weight 66.7 kg Weight Measurement [facility] Administered Current Inpatient Medications Acetaminophen (Acetaminophen 325 Mg Tab) 650 mg PO Q4H PRN PRN Reason: Pain or Fever Stop: 09/09/23 04:08 Albuterol (Albut/Ipratrop 3mg/0.5mg Neb 3 Ml Vial) 3 ml NEB QIDR RAJESH; Protocol Stop: 09/09/23 10:59 Last Admin: 08/11/23 11:03 Dose: 3 ml Albuterol (Albut/Ipratrop 3mg/0.5mg Neb 3 Ml Vial) 3 ml NEB Q2H PRN; Protocol PRN Reason: Shortness Of Breath Or Wheezing Stop: 09/09/23 09:26 Atorvastatin Calcium (Atorvastatin 40 Mg Tab) 40 mg PO DAILY RAJESH Stop: 09/09/23 08:59 Last Admin: 08/11/23 08:51 Dose: 40 mg Carvedilol (Carvedilol 12.5 Mg Tab) 12.5 mg PO BID RAJESH Stop: 09/09/23 20:59 Last Admin: 08/11/23 08:52 Dose: 12.5 mg Clopidogrel Bisulfate (Clopidogrel Bisulfate 75 Mg Tab) 75 mg PO QAM RAJESH Stop: 09/09/23 08:59 Last Admin: 08/11/23 08:52 Dose: 75 mg Dextrose (Dextrose 50% 50 Ml Syringe) 25 - 50 ml IV UD PRN; Protocol PRN Reason: Hypoglycemia Protocol Stop: 09/09/23 04:08 Fluticasone/Vilanterol (Fluticasone/Vilanterol 100/25mcg 14 Puffs/Inhaler) 1 puffs INH DAILY RAJESH Stop: 09/09/23 08:59 Last Admin: 08/11/23 08:52 Dose: 1 puffs Furosemide (Furosemide 40 Mg/4 Ml Vial) 40 mg IV QAM [facility] Stop: 09/09/23 11:59 Last Admin: 08/11/23 08:52 Dose: 40 mg Gabapentin (Gabapentin 800 Mg Tab) 800 mg PO TID RAJESH Stop: 09/09/23 08:59 Last Admin: 08/11/23 08:53 Dose: 800 mg Glucagon (Glucagon For Inj 1 Mg Vial) 1 mg SQ UD PRN; Protocol PRN Reason: Hypoglycemia Protocol Stop: 09/09/23 04:08 Glucose (Glucose 10 Tab/Tube) 4 - 8 tab PO UD PRN; Protocol PRN Reason: Hypoglycemia Treatment Stop: 09/09/23 04:08 Glucose (Glucose 40% Gel 15 Gm Tube) 15 - 30 gm PO UD PRN; Protocol PRN Reason: Hypoglycemia Protocol Stop: 09/09/23 04:08 Heparin Sodium/Dextrose (Heparin Sodium/Dextrose) 25,000 units in 500 mls @ 19 mls/hr IV .Q24H [facility]; Protocol Stop: 09/08/23 20:59 Last Admin: 08/11/23 01:30 Dose: 950 units/hr, 19 mls/hr Piperacillin Sod/Tazobactam (Sod 4.5 gm/ Dextrose) 100 mls @ 25 mls/hr IV Q8H [facility]; Protocol Stop: 08/17/23 13:59 Last Infusion: 08/11/23 09:17 Dose: Infused Doxycycline Hyclate 100 mg/ (Dextrose) 100 mls @ 50 mls/hr IV Q12H [facility] Stop: 08/17/23 07:59 Last Infusion: 08/11/23 09:49 Dose: Infused Insulin Aspart (Insulin Aspart Per Unit Charge) 0 units SC ACHS [facility] Stop: 09/09/23 05:59 Last Admin: 08/11/23 12:09 Dose: 5 units Lisinopril (Lisinopril 10 Mg Tab) 10 mg PO DAILY RAJESH Stop: 09/09/23 08:59 Last Admin: 08/11/23 08:53 Dose: 10 mg Miscellaneous (Carbohydrates For Hypoglycemia ) 15 - 30 gm PO UD PRN PRN Reason: Hypoglycemia Protocol Stop: 09/09/23 04:08 Morphine Sulfate (Morphine Sulfate 2 Mg/Ml Carp) 2 mg IV Q3H PRN PRN Reason: Severe Pain (Scale 7, 8, 9,10) Stop: 08/24/23 04:08 Nitroglycerin (Nitroglycerin Sl 0.4 Mg/Tab Tab) 0.4 mg SL Q5M PRN PRN Reason: Chest Pain Stop: 09/09/23 04:08 Potassium Chloride (Potassium Chloride Crtab 20 Meq Tabcr) 20 meq PO QAM [facility] Stop: 09/09/23 11:59 Last Admin: 08/11/23 08:53 Dose: 20 meq Sodium Chloride (Sodium Chlor 7% 4 Ml Neb) 4 ml NEB BIDR [facility] Stop: 09/09/23 09:24 Last Admin: 08/11/23 07:06 Dose: 4 ml
[2023-08-11] MEDS: SPIRONOLACTONE 25 MG TAB PO SCH (17:03)
--- NOTE | 2023-08-11 17:17 | Hospitalist Progress Note ---
Date of Service August 11, 2023 Assessment & Plan (1) Acute pain of left shoulder: Plan: 78-year-old male with past medical history significant for type 2 diabetes, CKD stage II, hyperlipidemia, CAD, presents with ongoing left-sided shoulder pain radiating to left arm since last 1 month. Left shoulder pain Demand ischemia Acute on chronic systolic CHF Patient presents with 1 month history of left shoulder pain radiating down the arm. No chest pain or shortness of breath Shoulder x-ray shows degenerative changes. High-sensitivity troponin troponin around 50s EKG on admission personally reviewed; normal sinus rhythm with PAC; nonspecific ST and T wave changes. Echocardiogram shows EF of 20 to 25%; severe diffuse left ventricle dysfunction with focal akinesis of the mid and apical septum including the entire apex with mild expansion. Cardiology on board, GDMT being optimized. Currently on Coreg, Lasix, losartan, Aldactone. Consider Jardiance and Entresto as an outpatient. Currently on heparin drip, patient with no chest pain, continue telemetry monitoring. DC hep drip at 48 hours. Patient to follow-up with cardiology upon discharge. Bilateral pneumonia CT chest on admission personally reviewed; bibasilar airspace opacities present. Also has calcified right pleural plaque. Concerning for asbestosis related lung disease. Started on Zosyn and doxycycline. Speech consulted for possible aspiration Patient will need follow-up with PCP and pulmonology referral. He will also need repeat chest x-ray in 6 weeks as outpatient. Started on DuoNebs and hypertonic saline for airway clearance History of CAD On Plavix, statin and beta-brenda Hypertension On Coreg, lisinopril Will monitor Diabetes Hold metformin Sliding scale Continue to monitor Tobacco abuse Trying to cut down Has wheezing on exam Started on DuoNebs [id number] DVT prophylaxis On IV heparin Disposition Telemetry Full code Please note the above document was generated using voice recognition software. It may contain grammatical, syntax or spelling errors. Any formal questions or concerns about the content, text or information contained within the body of this dictation should be directly addressed to the provider for clarification Admission and Anticipated Discharge Date Admission Date: August 09, 2023 Subjective Patient seen and examined at bedside. He is comfortably sitting up on the bed; not in distress. Reports pain on movement of his right shoulder. He reports eating okay and moving bowels. Denies chest pain. Physical Exam Physical Exam: Constitutional: Alert oriented x 3; not in distress Respiratory: Bilateral vesicular breath sounds with Cardiovascular: RRR, no murmur, no edema Vessels: no JVD or carotid bruit Chest: normal inspection of chest Abdomen: normal bowel sounds, soft, nontender, no hepatosplenomegaly Musculoskeletal: no cyanosis or clubbing, extremities motor strength 5/5. ROM painful on left shoulder. Skin: no rashes, warm and dry normal turgor Neurologic: PERRL, EOMI, accommodation nl, no face palsy, no dysarthria CN's II- XI intact bilaterally and moves all extremities Psychiatric: A+Ox3, euthymic affect Results & Data Results & Data Vital Signs (Past 12 Hours) Vital Signs Temp Pulse Pulse Pulse Resp BP Pulse Ox 08/11/23 15:10 81 18 97 08/11/23 15:04 36.6 C 76 18 116/72 97 08/11/23 12:49 08/11/23 11:07 36.7 C 67 17 103/58 L 99 08/11/23 11:03 64 18 94 08/11/23 08:28 77 08/11/23 07:50 36.6 C 72 17 126/75 91 08/11/23 07:06 90 18 91 O2 Del Method O2 Flow Rate 08/11/23 15:10 Nasal Cannula 2 08/11/23 15:04 Nasal Cannula 2 08/11/23 12:49 Nasal Cannula 2 08/11/23 11:07 Nasal Cannula 08/11/23 11:03 Nasal Cannula 2 08/11/23 08:28 08/11/23 07:50 Nasal Cannula 08/11/23 07:06 Nasal Cannula 2
[2023-08-12 07:42] LABS: Hematocrit (blood only) 36.7 % (42.0-52.0); Hemoglobin 12.5 g/dl (14.0-18.0); Mean Corpuscular Hemoglobin 31.3 pg (25.0-34.0); Mean Corpuscular Hgb Conc 34.1 g/dL (32.0-36.0); Mean Corpuscular Volume 91.8 fL (80.0-100.0); Mean Platelet Volume 11.2 fL (9.4-12.4); Platelet Count 190 K/uL (130-400); RDW Coefficient of Variation 13.2 % (11.5-14.5); RDW Standard Deviation 45.1 fL (36.4-46.3); White Blood Count 5.18 K/ul (4.8-10.8)
[2023-08-12 08:07] LABS: ANTI-Xa, UFH(UnfractionatedHep 0.35 IU/ml (0.3-0.7)
[2023-08-12 08:11] LABS: BUN Creatinine Ratio 13.5 (10-20); Calcium 8.6 mg/dl (8.6-10.3); Creatinine Clr Calc Pharmacy 52.1 ml/min; Est GFR (African American) 73.8 ml/min; Est GFR (Non-African American) 63.7 ml/min; Magnesium 1.7 mg/dl (1.7-2.4); Phosphorus 3.8 mg/dl (2.5-4.9); Potassium 3.6 mmol/L (3.5-5.1)
[2023-08-12] MEDS: FUROSEMIDE 20 MG TAB PO SCH (08:40)
[2023-08-12] MEDS: LOSARTAN POTASSIUM 25 MG TAB PO SCH (08:40)
[2023-08-12] MEDS: CEROVITE ADV FORMULA TAB PO SCH (08:40)
[2023-08-12] MEDS: THIAMINE HCL 100 MG TAB PO SCH (08:41)
--- NOTE | 2023-08-12 15:02 | Hospitalist Progress Note ---
Date of Service August 12, 2023 Assessment & Plan (1) Acute pain of left shoulder: Plan: 78-year-old male with past medical history significant for type 2 diabetes, CKD stage II, hyperlipidemia, CAD, presents with ongoing left-sided shoulder pain radiating to left arm since last 1 month. Left shoulder pain Demand ischemia Acute on chronic systolic CHF Patient presents with 1 month history of left shoulder pain radiating down the arm. No chest pain or shortness of breath Shoulder x-ray shows degenerative changes. High-sensitivity troponin troponin around 50s EKG on admission personally reviewed; normal sinus rhythm with PAC; nonspecific ST and T wave changes. Echocardiogram shows EF of 20 to 25%; severe diffuse left ventricle dysfunction with focal akinesis of the mid and apical septum including the entire apex with mild expansion. Cardiology on board, GDMT being optimized. Currently on Coreg, Lasix, losartan, Aldactone. Consider Jardiance and Entresto as an outpatient. s/p heparin drip 48 hours, patient with no chest pain, continue telemetry monitoring. Patient to follow-up with cardiology upon discharge. Currently on 2 L O2, no home O2 per pt. Bilateral pneumonia CT chest on admission personally reviewed; bibasilar airspace opacities present. Also has calcified right pleural plaque. Concerning for asbestosis related lung disease. Started on Zosyn and doxycycline. Speech consulted for possible aspiration Patient will need follow-up with PCP and pulmonology referral. He will also need repeat chest x-ray in 6 weeks as outpatient. Started on DuoNebs and hypertonic saline for airway clearance History of CAD On Plavix, statin and beta-brenda Hypertension On Coreg, lisinopril Will monitor Diabetes Hold metformin Sliding scale Continue to monitor Tobacco abuse Trying to cut down Has wheezing on exam Started on DuoNebs [id number] DVT prophylaxis On IV heparin Disposition: PT/OT, CM to assist w/ DC plan. 2 step test prior to DC. Full code Please note the above document was generated using voice recognition software. It may contain grammatical, syntax or spelling errors. Any formal questions or concerns about the content, text or information contained within the body of this dictation should be directly addressed to the provider for clarification Admission and Anticipated Discharge Date Admission Date: August 09, 2023 Subjective Patient seen and examined at bedside. He is comfortably sitting up on the bed; not in distress. Reports pain on movement of his right shoulder. He reports eating okay and moving bowels. Denies chest pain. Per RN no acute events overnight. Physical Exam Physical Exam: Constitutional: Alert oriented x 3; not in distress Respiratory: Bilateral vesicular breath sounds with Cardiovascular: RRR, no murmur, no edema Vessels: no JVD or carotid bruit Chest: normal inspection of chest Abdomen: normal bowel sounds, soft, nontender, no hepatosplenomegaly Musculoskeletal: no cyanosis or clubbing, extremities motor strength 5/5. ROM painful on left shoulder. Skin: no rashes, warm and dry normal turgor Neurologic: PERRL, EOMI, accommodation nl, no face palsy, no dysarthria CN's II- XI intact bilaterally and moves all extremities Psychiatric: A+Ox3, euthymic affect Results & Data Results & Data Vital Signs (Past 12 Hours) Vital Signs Temp Pulse Pulse Resp BP BP Pulse Ox 08/12/23 11:45 36.2 C L 65 18 112/67 92 08/12/23 11:19 68 15 96 08/12/23 07:44 36.4 C L 89 16 115/69 85 L 08/12/23 07:43 87 08/12/23 07:37 08/12/23 07:04 84 18 92 08/12/23 04:00 08/12/23 03:00 37.3 C 92 H 16 117/70 86 L Pulse Ox O2 Del Method O2 Del Method O2 Flow Rate 08/12/23 11:45 Nasal Cannula 08/12/23 11:19 Nasal Cannula 2 08/12/23 07:44 Room Air 08/12/23 07:43 08/12/23 07:37 Nasal Cannula 2 08/12/23 07:04 Nasal Cannula 2 08/12/23 04:00 96 Nasal Cannula 08/12/23 03:00 Room Air
[2023-08-12] MEDS: POTASSIUM CHLORIDE CRTAB 20 MEQ TABCR PO STA (15:36)
[2023-08-12] MEDS: MAGNESIUM SULFATE / D5W 1 GM/100 ML BAG IV SCH (15:37)
[2023-08-13 07:23] LABS: BUN Creatinine Ratio 15.8 (10-20); Calcium 8.6 mg/dl (8.6-10.3); Creatinine Clr Calc Pharmacy 50.7 ml/min; Est GFR (African American) 71.5 ml/min; Est GFR (Non-African American) 61.7 ml/min; Magnesium 2.1 mg/dl (1.7-2.4); Potassium 4.3 mmol/L (3.5-5.1)
--- NOTE | 2023-08-13 12:22 | Discharge Summary ---
Date of Service August 13, 2023 Admission HPI Per Admitting Provider 78-year-old male with past medical history significant for type 2 diabetes, CKD stage II, hyperlipidemia, CAD, presents with ongoing left-sided shoulder pain radiating to left arm since last 1 month. Looks like he had a course of prednisone as outpatient. The pain is not getting better . Denies any chest pain or shortness of breath. No headaches. Has some cough. Appetite is okay. No nausea or vomiting. No abdominal pain. Normal bowel and bladder movements. He states ambulating okay. Did not get chest pain or shortness of breath while ambulating. Hemodynamically stable. In January 2022 he was admitted for seizure-like activity seen by neurology and thought to be shaking TIA syndrome and was placed on dual antiplatelet therapy for 3 weeks followed by Plavix 75 mg daily and was recommended loop recorder at that time. Past medical history. As mentioned above Past surgical history cardiac stent. Neck fusion surgery. Social history. Currently smoking 1 pack every week with same trying to quit. Drinks alcohol. No drug use Family history. Brother has aneurysm. Son has aneurysm. Aunt had cancer. Uncle had cancer Admission Exam Per Admitting Provider General- Not in distress Head- atraumatic Eyes- PERRL. ENT- oropharynx clear Neck- supple, no JVD. Lungs- clear to auscultation mild b/l rhonchi and wheezing Heart- regular rate and rhythm; no murmur, no gallop. Abdomen- normal bowel sounds, soft, nontender, no distension Extremities- no pretibial edema, no erythema seen Neuro- alert, oriented PERRL, EOMI; no facial palsy; no dysarthria; moves extremities Principal Diagnosis Acute on chronic systolic CHF Bilateral pneumonia Discharge Exam Constitutional: Alert oriented x 3; not in distress Respiratory: Bilateral vesicular breath sounds with Cardiovascular: RRR, no murmur, no edema Vessels: no JVD or carotid bruit Chest: normal inspection of chest Abdomen: normal bowel sounds, soft, nontender, no hepatosplenomegaly Musculoskeletal: no cyanosis or clubbing, extremities motor strength 5/5. ROM painful on left shoulder. Skin: no rashes, warm and dry normal turgor Neurologic: PERRL, EOMI, accommodation nl, no face palsy, no dysarthria CN's II- XI intact bilaterally and moves all extremities Psychiatric: A+Ox3, euthymic affect Discharge Data Allergies Allergy/AdvReac Type Severity Reaction Status Date / Time bee venom protein (honey bee) Allergy Severe Anaphylaxis--carries Verified 08/09/23 21:10 an Epipen Consultations 08/09/23 20:21 ED Decision to Admit Stat 08/10/23 08:00 Consult Cardiology Routine Ordered Studies 08/09/23 23:41 CT chest diagnostic wo con Urgent Hospital Course (1) Acute pain of left shoulder: 78-year-old male with past medical history significant for type 2 diabetes, CKD stage II, hyperlipidemia, CAD, presents with ongoing left-sided shoulder pain radiating to left arm since last 1 month. He was managed for the following: Left shoulder pain Demand ischemia Acute on chronic systolic CHF Patient presents with 1 month history of left shoulder pain radiating down the arm. No chest pain or shortness of breath Shoulder x-ray shows degenerative changes. High-sensitivity troponin troponin around 50s EKG on admission personally reviewed; normal sinus rhythm with PAC; nonspecific ST and T wave changes. Echocardiogram shows EF of 20 to 25%; severe diffuse left ventricle dysfunction with focal akinesis of the mid and apical septum including the entire apex with mild expansion. Cardiology evaluated, GDMT optimized. Currently on Coreg, Lasix, losartan, Aldactone. Consider Jardiance and Entresto as an outpatient. s/p heparin drip 48 hours, patient with no chest pain, continue telemetry monitoring. Patient to follow-up with cardiology upon discharge. Currently on 2 L O2, no home O2 per pt. ---> three-step test done, no oxygen requirement. Bilateral pneumonia CT chest on admission personally reviewed; bibasilar airspace opacities present. Also has calcified right pleural plaque. Concerning for asbestosis related lung disease. Started on Zosyn and doxycycline. Speech consulted for possible aspiration Patient will need follow-up with PCP and pulmonology referral. He will also need repeat chest x-ray in 6 weeks as outpatient. Started on DuoNebs and hypertonic saline for airway clearance ---> to p.o. antibiotics on discharge to complete the course. History of CAD On Plavix, statin and beta-brenda Hypertension On Coreg, lisinopril Will monitor Diabetes Hold metformin Sliding scale Continue to monitor Tobacco abuse Trying to cut down Has wheezing on exam Started on DuoNebs [id number] DVT prophylaxis On IV heparin Disposition: PT/OT, CM to assist w/ DC plan. 2 step test prior to DC. Full code Patient is being discharged home with following instruction at the point of discharge: Follow-up with your primary care physician within a week time and likely you will need labs CBC/CMP/magnesium/phosphorus. You were evaluated for acute on chronic heart failure, cardiology evaluated you, continue your Coreg, Lasix, losartan, Aldactone as prescribed. You might benefit from adding Entresto and Jardiance as an outpatient, coordinate with your cardiology office or PCP office for further evaluation/management plan. Follow-up with your cardiology in 2 to 4 weeks time upon discharge. You will be discharged on antibiotic to complete the course for pneumonia. You will need repeat chest x-ray in about 6 weeks time to document resolution of pneumonia. Take your medications as prescribed. Please make sure that you are able to get your medications today by calling your pharmacy before you leave the hospital so that your treatment continuity is not broken. Please note the above document was generated using voice recognition software. It may contain grammatical, syntax or spelling errors. Any formal questions or concerns about the content, text or information contained within the body of this dictation should be directly addressed to the provider for clarification Home Health Attestation I certify that this patient is under my care and that I, or a physicians under water assistant working with me, had a face to-face encounter that meets the home health [id number] encounter requirements with this patient. The encounter with the patient was in whole, or in part, for the following medical condition, which is the primary reason for home health care (list medica l condition): I certify that, based on my findings, the following services are medically necessary home health services: My clinical findings support the need for the above services because: Further, I certify that my clinical findings support that this patient is homebound (i.e. absences from home require considerable and taxing effort and are for medical reasons or rastafarian services or infrequently or of short duration when for other reasons) because: Certification for Home Health Services: Based on the above findings, I certify that this patient is confined to the home and needs intermittent shelter care, physical therapy and/or speech therapy or continues to need occupational therapy. The patient is under my care, and I have initiated the establishment of the plan of care. This patient will be followed by a physician who will periodically review the plan of care. Total Time Total Time Spent Total Time Spent (In Minutes): 45 Discharge Plan Discharge Items Patient Disposition: Home - Self-Care Reason For Visit: LEFT SHOULDER PAIN,ELEVATED TOPONIN,EKG CHANGES Discharge Diagnosis: Acute on chronic systolic CHF Bilateral pneumonia Activity: Resume your previous activity Non-emergency contact: Primary Care Provider Call non-emergency contact if: you have any medication questions, your symptoms worsen and your temperature is above 101.5 Follow-up/Referrals: Monique Riley PA-C [Primary Care Provider] - Diet: Carb Consistent or DM2 Addtl Attending Provider Instructions: Follow-up with your primary care physician within a week time and likely you will need labs CBC/CMP/magnesium/phosphorus. You were evaluated for acute on chronic heart failure, cardiology evaluated you, continue your Coreg, Lasix, losartan, Aldactone as prescribed. You might benefit from adding Entresto and Jardiance as an outpatient, coordinate with your cardiology office or PCP office for further evaluation/management plan. Follow-up with your cardiology in 2 to 4 weeks time upon discharge. You will be discharged on antibiotic to complete the course for pneumonia. You will need repeat chest x-ray in about 6 weeks time to document resolution of pneumonia. Take your medications as prescribed. Please make sure that you are able to get your medications today by calling your pharmacy before you leave the hospital so that your treatment continuity is not broken. Addtl Cytogenetic Technician Provider Instructions: Call 911 and go to the Emergency Room if: * You have tightness or pain in your chest that does not go away with rest or Nitroglycerin * You are very short of breath even with rest Call your doctor if any of the following symptoms or problems start or get worse: * Shortness of breath or difficulty breathing * Wake up at night short of breath * Chest pain * Cough * Swelling of your hands, fee, or legs * More fatigued or tired with your normal activity * Palpitations - sudden fast heart beats WEIGHT * Weigh yourself every morning after using the bathroom. * Use the same scale. * Wear the same amount of clothing. * Write your weight down on your chart. * Call your doctor if you gain more than 2-3 pounds in 1-2 days. MEDICATIONS * Use this discharge instruction sheet for instructions. * Take your medications at the time your doctor ordered. * Do not skip a dose of your medicines. * If you miss a dose of medicine, take as soon as possible, but DO NOT DOUBLE A DOSE. * Read your medicine information when you get home. * Know all of the side effects of your medicine. * Call your doctor's office if you have any side effects. * Be sure all of your doctors know what medicine and herbs you take (including cold, flu, and herbal medicine). * Pain Medicine: If you do not get relief from your pain, please call your doctor for help. Take the following with you to your follow-up doctor appointments: * Weight Chart * Medication List * List of questions Do not drink excessive alcohol, beer or wine. Pending Studies at Discharge: No Stand-Alone Forms: [facility], Sm[facility] Cessation Medications and DC Order Prescriptions: New carvedilol 12.5 mg Tablet 12.5 mg PO BID Qty: 60 0RF losartan 25 mg Tablet 25 mg PO QAM Qty: 30 0RF nitroglycerin [Nitrostat] 0.4 mg Tablet, Sublingual 0.4 mg sublingual UD PRN (Reason: chest pain) Qty: 20 0RF spironolactone 25 mg Tablet 25 mg PO QAM Qty: 30 0RF acetaminophen 325 mg Tablet 650 mg PO Q6H PRN (Reason: pain) Qty: 60 0RF furosemide 20 mg Tablet 20 mg PO QAM Qty: 30 0RF potassium chloride 20 mEq Tablet,Er Particles/Crystals 20 meq PO QAM Qty: 30 0RF Cerovite Senior 0.4 mg-300 mcg- 250 mcg Tablet 1 tab PO QAM Qty: 30 0RF thiamine HCl (vitamin B1) 100 mg Tablet 100 mg PO QAM Qty: 30 0RF Probiotic 3 billion cell capsule 3,000 mmu cells PO DAILY 7 Days Qty: 7 0RF Rx Instructions: administer with a meal doxycycline hyclate 100 mg capsule 100 mg PO BID 4 Days Qty: 8 0RF amoxicillin-pot clavulanate 875-125 mg tablet 1 tab PO BID 4 Days Qty: 8 0RF Continued atorvastatin 40 mg tablet 40 mg PO DAILY alendronate 70 mg tablet 70 mg PO WK Rx Instructions: TAKES ON SUNDAYS gabapentin 800 mg tablet 800 mg PO TID clopidogrel 75 mg Tablet 75 mg PO QAM Qty: 30 1RF fluticasone furoate-vilanterol [Breo Ellipta] 100-25 mcg/dose Blister With Device 1 inh inhalation DAILY Qty: 60 1RF albuterol sulfate [Ventolin HFA] 90 mcg/actuation Hfa Aerosol Inhaler 2 puff inhalation Q6H PRN (Reason: shortness of breath or wheezing) Qty: 6.7 1RF metformin 500 mg tablet extended release 24 hr 500 mg PO DAILY Qty: 30 1RF (DME) blood-glucose meter [OneTouch Verio Meter] Misc See Rx Instructions .Route Qty: 1 0RF Rx Instructions: As directed (DME) blood sugar diagnostic Strip See Rx Instructions .Route Qty: 100 0RF Rx Instructions: Check blood glucose three times a day before meal (DME) lancets Misc See Rx Instructions .Route Qty: 200 0RF Rx Instructions: Check blood glucose three times a day before meal epinephrine [EpiPen] 0.3 mg/0.3 mL Auto-Injector 0.3 mg IM DIRECTED PRN (Reason: Allergic Reaction) ipratropium bromide 17 mcg/actuation Hfa Aerosol Inhaler 2 puff INHALATION QID PRN (Reason: NEEDED PER PT) Discontinued carvedilol 6.25 mg tablet 6.25 mg PO BID lisinopril 10 mg tablet 10 mg PO DAILY diclofenac sodium 75 mg tablet,delayed release (DR/EC) 75 mg PO BID Discharge Orders: Discharge Order- CHF (Routine); Ordered 08/13/23 Ordered By: Marj Perez Admission Data Admit Date/Time: 08/09/23 23:49 Attending Provider: Marj Perez Admit Provider: Krishna Telles Primary Care Provider: Monique Riley Other Providers: Krishna Telles
== END 2023-08-13 14:05 | disposition home or self-care (01) | DRG 291 ==
LOC: ED 17:58 → SUATTDRO 23:49 → EDINP 23:49 → 2S 08-10 03:09